=== PATIENT | female | born 1940 | race Caucasian/White ===

== ENCOUNTER → 2016-10-10 | Outpatient (CLI) | payer MEDICARE ==
[2016-02-28 13:12] VITALS: BP 120/70
[~2016-10-10] MED LIST: ACET500T33 PO; AMLO5TAB4 PO; ASPI-482 PO; CHOL100013 PO; CLOP75TA PO; COLC0.6T34 PO; CYAN10005 PO; CYAN100072 PO; DILT180C64 PO; FERR-26 PO; FLUT12HF2 IH; HYDR50TA6 PO; INSU100C4 SQ; LISI-334 PO; MAGN400T22 PO; METF500T PO; METF500T4 PO; METO25TA4 PO; METO50TA2 PO; MONT10TA6 PO; Metoprolol Tartrate PO; NPH,100V SQ; SIMV40TA3 PO; TAMO20TA PO; WARF5TAB7 PO
--- NOTE | 2016-10-10 16:27 | RAD ---
Left lower extreme arterial ultrasound, 10/10/2016: History: Left leg swelling and pain Duplex evaluation of the major arteries in the left lower extremity was performed including grayscale, color flow and spectral Doppler analysis. There are mild scattered atherosclerotic plaques. The common femoral Doppler waveform is biphasic. The profunda femoris, superficial femoral and popliteal arteries are patent demonstrating monophasic Doppler waveforms. No significant focal velocity elevation was seen in these vessels to suggest high-grade focal stenosis. There is gradual degradation of the Doppler waveforms distally. Patent posterior tibial, anterior tibial and dorsalis pedis arteries are evident demonstrating low amplitude dampened Doppler waveforms. The left peroneal artery could not be visualized. IMPRESSION: 1. Mild scattered atherosclerotic plaquing. 2. No high-grade focal femoral-popliteal stenosis is identified. 3. Moderate gradual degradation of the distal Doppler waveforms
== END | disposition home or self-care (01) ==
LOC: US 14:55
PROVIDERS: ATTEND Internal Medicine
DX: I73.9 Peripheral vascular disease, unspecified (principal); M79.605 Pain in left leg; M79.89 Other specified soft tissue disorders
CPT/HCPCS: 93926

== ENCOUNTER 2016-12-25 08:28 | Outpatient (CLI) | payer MEDICARE ==
[~2016-12-25] VITALS: Ht 180.3 cm; Wt 98.0 kg
[2016-12-25] VITALS (13 sets, daily range): BP systolic 98–187; BP diastolic 68–118
[~2016-12-25 08:28] MED LIST changes: +LIDOCAINE 1% / SOD BICARB 8.4% 20 ML VIAL. IJ ONE
[2016-12-25 09:12] LABS: BASO % 0 % (0-3); CALCIUM 8.7 mg/dL (8.5-10.1); CREATININE 1.3 mg/dL (0.6-1.0); EOS % 1 % (0-3); GFR 39.6; HEMATOCRIT 37.2 % (36.0-47.0); HEMOGLOBIN 11.9 g/dL (12.0-15.5); LYMPH # 2.1 x10^3/uL (1.0-4.8); LYMPH % 26 % (24-48); MEAN CORPUSCULAR HEMOGLOBIN 28 pg (25-35); MEAN CORPUSCULAR HGB CONC 32 g/dL (31-37); MEAN CORPUSCULAR VOLUME 87 fL (79-100); MONO % 10 % (0-9); NEUT % 64 % (31-73); PLATELET COUNT 248 x10^3/uL (140-400); POTASSIUM 4.1 mmol/L (3.5-5.1); RED CELL DISTRIBUTION WIDTH 14.6 % (11.5-14.5); WHITE BLOOD COUNT 8.2 x10^3/uL (4.0-11.0)
[2016-12-25] MEDS ORDERED: WARF4TAB7 PO (09:24)
[2016-12-25] MEDS ORDERED: HEPARIN for ARTERIAL LINE 1,500 ML ONE (09:28)
[2016-12-25] MEDS ORDERED: IODIXANOL 320MG/ML 50ML VIAL. ONE (09:28)
[2016-12-25] MEDS ORDERED: IOHEXOL 300 MG/ML 100ML VIAL. ONE (09:28)
[2016-12-25] MEDS ORDERED: IODIXANOL 320 MG/ML 100 ML VIAL. ONE (09:28)
[2016-12-25] MEDS ORDERED: LIDOCAINE 1% / SOD BICARB 8.4% 20 ML VIAL. IJ ONE ×2 (09:28→10:15)
[2016-12-25 09:33] LABS: INR 1.4 (0.8-1.1); PROTHROMBIN TIME PATIENT 16.7 SEC (11.7-14.0)
[2016-12-25] MEDS ORDERED: HEPARIN for IV BOLUS 10,000 UNIT/10 ML VIAL. ONE (09:46)
[2016-12-25] MEDS ORDERED: MIDAZOLAM HCL/PF 5 MG/5 ML VIAL. ONE (09:46)
[2016-12-25] MEDS ORDERED: fentaNYL PF VIAL 250 MCG/5 ML VIAL ONE (09:46)
[2016-12-25] MEDS ORDERED: CONTRAST GIVEN MC PRN (10:15)
[2016-12-25] MEDS ORDERED: MIDAZOLAM HCL/PF 5 MG/5 ML VIAL. IV ONE (10:15)
[2016-12-25] MEDS ORDERED: IODIXANOL 320 MG/ML 100 ML VIAL. IART ONE (10:15)
[2016-12-25] MEDS ORDERED: fentaNYL PF VIAL 250 MCG/5 ML VIAL IV ONE (10:15)
[2016-12-25] MEDS ORDERED: IOHEXOL 300 MG/ML 100ML VIAL. IART ONE (10:45)
--- NOTE | 2016-12-25 11:13 | PDOC ---
MODERATE SEDATION ASSESSMENT RISKS/ALTERNATIVES Risks/Alternatives Risks and alternatives of this type of sedation and procedure discussed with: RISK/ALTERNATIVES: Patient H & P ON CHART H & P H & P on chart and reviewed for co-morbid conditions and appropriate labs. H&P ON CHART: Yes STATUS PREG STATUS ASSESSED: N/A MEDS/ALLERGIES REVIEWED Meds/Allergies Reviewed Medications and Allergies including time and route of recently administered narcotics and sedatives. MEDS/ALLERGIES REVIEWED: Yes ASA RATING ASA RATING: II AIRWAY ASSESSMENT Airway Assessment Airway patency, oral function limitations, presence of caps, crowns, dentures, partials, and ability to extend neck assessed. AIRWAY ASSESSMENT: Yes MALLAMPATI SCORE MALLAMPATI SCORE: II PRE-SEDATION ASSESSMENT PRE-SEDATION ASSESSMENT: Yes ABDOUL VO MD Dec 25, 2016 11:13
--- NOTE | 2016-12-25 11:13 | PDOC ---
Exam Loom Changeover Operator Loom Changeover Operator Aeysha Hand Model Hand Model Ochoa Kohler Pre-Procedure Diagnosis Pre-Procedure Diagnosis 76 YO diabetic hypertensive female with CAD and PAD, with abnormal left lower extremity arterial Doppler study, with nonpalpable left foot/ankle pulses, and with nonhealing left 2nd toe ulceration. Post-Procedure Diagnosis Post-Procedure Diagnosis Same---see Radiology report. No AAA. No significant iliac inflow disease bilaterally. Widely patent left profunda. Severe, diffuse calcific left SFA-above knee pop disease. Below knee pop widely patent. Single vessel peroneal r/o. Procedure Performed Procedure Performed Abdominal aortogram with selective left lower extremity angio---no intervention Type of Anesthesia Type of Anesthesia Local + Mod sedation Estimated Blood Loss EBL: 25 cc Condition of Patient Condition of Patient Stable. No apparent complication. Disposition Disposition Home from [facility] post recovery, if no problems. F/u with Dr Ana Corcoran and Dr Astorga----Rx vascular surgery evaluation to consider left fem-below knee bypass graft. Full report to follow. OK to resume coumadin today. Hold metformin x 48 hrs. ABDOUL VO MD Dec 25, 2016 11:13
--- NOTE | 2016-12-25 11:33 | PDOC1 ---
History and Physical Date of Procedure Date of Admission 12/25/16 Procedure Procedure Abdominal aortogram with left leg angio +/- intervention Indication Indication 76 YO diabetic, hypertensive female with CAD and PAD, with abnormal left lower extremity arterial duplex Doppler, with nonpalpable left foot/ankle pulses, and with nonhealing left 2nd toe ulceration. Past Medical History Past Medical History See Nursing Pre Procedure PMH Past Surgical History Past Surgical History See Nursing Pre Procedure PSH Current Medications Current Medications Current Medications Lidocaine/Sodium Bicarbonate (Buffered Lidocaine 1%) 20 ml STK-MED ONCE IJ ; Start 12/24/16 at 13:06; Stop 12/24/16 at 13:07; Status DC Heparin Sodium/ Sodium Chloride 500 ml @ As Directed STK-MED ONCE .ROUTE ; Start 12/24/16 at 13:06; Stop 12/24/16 at 13:07; Status DC Iodixanol (Visipaque 320) 50 ml STK-MED ONCE .ROUTE ; Start 12/25/16 at 09:28; Stop 12/25/16 at 09:29; Status DC Iohexol (Omnipaque 300 Mg/ml) 100 ml STK-MED ONCE .ROUTE ; Start 12/25/16 at 09: 28; Stop 12/25/16 at 09:29; Status DC Lidocaine/Sodium Bicarbonate (Buffered Lidocaine 1%) 20 ml STK-MED ONCE IJ ; Start 12/25/16 at 09:28; Stop 12/25/16 at 09:29; Status DC Heparin Sodium/ Sodium Chloride 1,500 ml @ As Directed STK-MED ONCE .ROUTE ; Start 12/25/16 at 09:28; Stop 12/25/16 at 09:29; Status DC Iodixanol (Visipaque 320) 100 ml STK-MED ONCE .ROUTE ; Start 12/25/16 at 09:28; Stop 12/25/16 at 09:29; Status DC Heparin Sodium (Porcine) (Heparin Sodium) 10,000 unit STK-MED ONCE .ROUTE ; Start 12/25/16 at 09:46; Stop 12/25/16 at 09:47; Status DC Midazolam HCl (Versed) 5 mg STK-MED ONCE .ROUTE ; Start 12/25/16 at 09:46; Stop 12/25/16 at 09:47; Status DC Fentanyl Citrate (Fentanyl 5ml Vial) 250 mcg STK-MED ONCE .ROUTE ; Start at 09:46; Stop 12/25/16 at 09:47; Status DC Heparin Sodium/ Sodium Chloride 1,000 unit 1X ONCE IART Last administered on 10:46; Start 12/25/16 at 10:15; Stop 12/25/16 at 10:16; Status DC Lidocaine/Sodium Bicarbonate (Buffered Lidocaine 1%) 20 ml 1X ONCE IJ Last administered on 12/25/16 10:45; Start 12/25/16 at 10:15; Stop 12/25/16 at 10:16 ; Status DC Midazolam HCl (Versed) 5 mg 1X ONCE IV Last administered on 12/25/16 10:46; Start 12/25/16 at 10:15; Stop 12/25/16 at 10:16; Status DC Fentanyl Citrate (Fentanyl 5ml Vial) 250 mcg 1X ONCE IV Last administered on 10:47; Start 12/25/16 at 10:15; Stop 12/25/16 at 10:16; Status DC Iodixanol (Visipaque 320) 100 ml 1X ONCE IART Last administered on 12/25/16 10:47; Start 12/25/16 at 10:15; Stop 12/25/16 at 10:16; Status DC Info (Do NOT chart on this entry -- for MONITORING) 1 each PRN DAILY PRN MC SEE COMMENTS; Start 12/25/16 at 10:15; Stop 12/27/16 at 10:14 Iohexol (Omnipaque 300 Mg/ml) 100 ml 1X ONCE IART Last administered on 10:47; Start 12/25/16 at 10:45; Stop 12/25/16 at 10:46; Status DC Active Scripts Active Clopidogrel (Clopidogrel Bisulfate) 75 Mg Tablet 1 Tab PO DAILY Reported Warfarin Sodium 4 Mg Tablet 1 Tab PO DAILY Metoprolol Tartrate 25 Mg Tablet 25 Mg PO BID Vitamin B-12 (Cyanocobalamin (Vitamin B-12)) 1,000 Mcg Tablet 1 Tab PO DAILY Singulair Tablet (Montelukast Sodium) 10 Mg Tablet 1 Tab PO DAILY Mag-Oxide (Magnesium Oxide) 400 Mg Tablet 1 Tab PO BID Cartia Xt (Diltiazem Hcl) 180 Mg Cap.er.24h 180 Mg PO DAILY Metformin Hcl 500 Mg Tablet 1 Tab PO BID Ferrous Sulfate 325 Mg Tablet 325 Mg PO BID Tamoxifen Citrate 20 Mg Tablet 1 Tab PO BID Hydrochlorothiazide Tablet (Hydrochlorothiazide) 50 Mg Tablet 0.5 Tab PO DAILY Simvastatin 40 Mg Tablet 1 Tab PO QHS Lisinopril 20 Mg Tablet 1 Tab PO DAILY Humulin N (Nph, Human Insulin Isophane) 100 Unit/1 Ml Vial 5 Unit SQ PRN Humulin N (Nph, Human Insulin Isophane) 100 Unit/1 Ml Vial 47 Unit SQ DAILY08 Vitamin D (Cholecalciferol (Vitamin D3)) 1,000 Unit Capsule 1 Cap PO DAILY Allergies Allergies: Coded Allergies: colchicine (Verified Allergy, Intermediate, Rash, 02/28/16) itching and rash formed Physical Exam Vital Signs Vital Signs Date Time Temp Pulse Resp B/P (MAP) Pulse Ox O2 Delivery O2 Flow Rate FiO2 12/25/16 10:48 120 16 98 Nasal Cannula 2.0 12/25/16 09:42 98.3 186/107 (133) 98.3 Lungs: Clear to auscultation Heart: Regular rate Psych/Mental Status: Mental status NL Vascular 2+ [employer] pulses bilaterally Nonpalpable foot/ankle pulses bilaterally. Bandage covering left 2nd toe diabetic/ischemic ulceration Diagnostic Data/Imaging Images PMC left lower extremity arterial duplex Doppler from 10/10/16 reviewed. Assessment Assessment 76 YO diabetic, hypertensive female with CAD, PAD, abnormal non-invasive study, nonpalpable ankle/foot pulses, and nonhealing left 2nd toe diabetic/ischemic ulceration. Problems: Plan Plan Diagnostic abdominal aortogram with selective left leg angio +/- intervention. ABDOUL VO MD Dec 25, 2016 11:33
[2016-12-25] MEDS ORDERED: IV NORMAL SALINE 1000ML BAG 1,000 ML IV ONE (12:45)
--- NOTE | 2016-12-26 07:21 | RAD ---
Abdominal aortogram with selective left lower extremity arteriogram Indication: 76-year-old female with hypertension, diabetes, coronary artery disease, PAD, nonpalpable pedal pulses, abnormal left lower extremity arterial duplex Doppler ultrasound, and a nonhealing left second toe ischemic/diabetic ulceration. Diagnostic arteriogram, with possible intervention, has been requested. Fluoroscopy time: 17.4 minutes Kerma-area Product: 177 Gycm2 Contrast material: 32 cc Omnipaque 300. 56 cc Visipaque 320. Anesthesia: 48 minutes moderate sedation was provided utilizing a total of 1.5 mg Versed and 75 mcg fentanyl, IV. The patient was appropriately monitored by a qualified independent observer throughout the time of moderate sedation. Consent: The procedure was explained in its entirety to the patient and/or the patient's designated environmental marketing representative by a member of the treatment team. This included a discussion of risks and benefits and commonly accepted alternatives to the procedure, as well as expected consequences of no treatment at all. Discussion of risks included, but was not limited to, those that are most frequent and those that are rare, but possibly severe or life-threatening, as well as the possibility of unforeseen complications. Sterility: All elements of maximal sterile barrier technique, hand hygiene, skin preparation, and, if ultrasound was used, sterile ultrasound technique were followed. Procedure: Informed consent was obtained from the patient. She was placed supine on the angiography table. Preliminary ultrasound examination of right groin revealed wide patency of right common femoral artery, which was documented with a single hard copy ultrasound image. Right groin was then prepped and draped in the usual sterile fashion, utilizing all elements of maximal sterile barrier technique, as described above. Moderate sedation was provided with IV Versed and fentanyl. Using aseptic technique, local anesthesia, direct sterile ultrasound guidance, and the micropuncture system, a 5 [place]uvian right common femoral artery sheath was successfully introduced. Abdominal aortogram: A 5 [place]uvian Omni Flush catheter was advanced through the right groin sheath into suprarenal abdominal aorta. Omnipaque 300 was injected and abdominal aortogram DSA images were obtained. Findings: Infrarenal abdominal aorta shows moderate as described plaquing, without significant stricture and without aneurysmal dilatation. Renal arteries are suboptimally visualized, however, no definite flow-limiting stenosis is seen. SMA and HOMERO are opacified. Aortic bifurcation is widely patent. Oblique pelvis injection: The Omni Flush catheter was withdrawn into terminal abdominal aorta, just above bifurcation. Omnipaque 300 was again injected and DSA images were obtained over pelvis in the LUNA projection. Findings: Both common iliac arteries show mild atherosclerotic calcific plaquing, without significant stenosis. External iliac arteries are widely patent, bilaterally. Left hypogastric artery is widely patent. Areas of moderate stenosis lies within proximal right hypogastric artery. Selective left lower extremity arteriogram: The Omni Flush catheter was exchanged for a 4 Peruvian angled glide catheter, which was advanced across aortic bifurcation and was initially positioned within contralateral left common femoral artery. Dilute Visipaque was injected and DSA images were obtained over left groin in the [place] projection. The angled glide catheter was then advanced into proximal left superficial femoral artery. Dilute Visipaque was injected and DSA images were obtained from proximal thigh through distal thigh. Multiple unsuccessful attempts were then made to cross diffusely and severely diseased and calcific left SFA and proximal left popliteal artery segment into mid left popliteal artery, utilizing quick cross and Nelson Cross catheter is and a variety of guidewires. The Nelson Cross catheter was then withdrawn into left common femoral artery. Dilute Visipaque was hand injected and DSA images were obtained from left knee through foot. Findings: Left common femoral artery, bifurcation, and very large caliber profunda are widely patent. Left superficial femoral artery is diffusely calcific and severely diseased, commencing in its mid segment. Left popliteal artery, above level of patella, shows similar severe calcific disease. Left popliteal artery at/below patella is widely patent. Anterior tibial artery is occluded just distal to its origin. Left tibioperoneal trunk is widely patent. Posterior tibial artery is occluded at/near its origin. Peroneal artery is patent from origin through distal calf and provides collateral opacification of distal anterior tibial artery through dorsalis pedis artery at mid foot, with poor visualization of plantar arch. There was markedly delayed segmental opacification of plantar vessels overlying calcaneus. Patient tolerated the procedure well without apparent complication. Hemostasis was achieved at the right groin puncture site utilizing the Mynx closure system. Impression: 1. No abdominal aortic aneurysm or significant common iliac or external iliac artery stenosis, bilaterally. 2. Left common femoral artery and profunda are widely patent. 3. Severe, diffuse, markedly calcific disease (which could not be crossed with guidewire or catheter) extends from mid left superficial femoral artery through popliteal artery above level of patella. Left popliteal artery at/below patella is widely patent. 4. Single-vessel distal runoff is provided via peroneal artery, which is patent from origin through distal calf, and provides collateral opacification of distal anterior tibial artery through dorsalis pedis artery at mid foot, with poor visualization of plantar arch.
== END 2016-12-25 14:16 | disposition home or self-care (01) ==
LOC: INTRAD 08:28
PROVIDERS: ATTEND Internal Medicine
DX: I70.292 Other atherosclerosis of native arteries of extremities, left leg (principal); I25.10 Atherosclerotic heart disease of native coronary artery without angina pectoris; E78.00 Pure hypercholesterolemia, unspecified; I48.91 Unspecified atrial fibrillation; I10 Essential (primary) hypertension; M19.90 Unspecified osteoarthritis, unspecified site; F41.9 Anxiety disorder, unspecified; F32.9 Major depressive disorder, single episode, unspecified; Z85.3 Personal history of malignant neoplasm of breast; Z87.39 Personal history of other diseases of the musculoskeletal system and connective tissue; Z96.651 Presence of right artificial knee joint; Z88.8 Allergy status to other drugs, medicaments and biological substances
CPT/HCPCS: 36246; 36415; 75625; 75710; 75774; 76937; 80048; 85027; 85610; C1713; C1760; C1769; C1892; G0269; J2250; J3010; J7030; Q9967; 99152; 99153; C1887; J1644

== ENCOUNTER → 2017-04-29 | Outpatient (CLI) | payer MEDICARE ==
[2016-12-25 13:35] VITALS: BP 136/94
[~2017-04-29] MED LIST changes: -LIDOCAINE 1% / SOD BICARB 8.4% 20 ML VIAL. IJ ONE; +WARF4TAB7 PO
--- NOTE | 2017-04-29 13:45 | RAD ---
DATE: April 29, 2017 EXAM: DIGITAL DIAGNOSTIC BILATERAL HISTORY: Routine screening. COMPARISON: Studies back to March 03, 2014. TECHNIQUE: 2D digital CC and MLO views of each breast were obtained. This study was interpreted with the benefit of Computerized Aided Detection (CAD). FINDINGS: The breast parenchyma demonstrates scattered fibroglandular densities, category B. There are posttherapeutic changes in the right breast with previous lumpectomy. There is no worrisome mass or area of architectural distortion. Small retroareolar nodule is stable and benign-appearing. Numerous benign-appearing calcifications are again scattered throughout both breasts. IMPRESSION: Stable mammogram with benign findings. BI-RADS CATEGORY: 2 BENIGN FINDING RECOMMENDED FOLLOW-UP: 12M 12 MONTH FOLLOW-UP PQRS compliance statement: Patient information was entered into a reminder system with a target due date for the next mammogram. Mammography is a sensitive method for finding small breast cancers, but it does not detect them all and is not a substitute for careful clinical examination. A negative mammogram does not negate a clinically suspicious finding and should not result in delay in biopsying a clinically suspicious abnormality. "Our facility is accredited by the [employer] Mammography [employer]."
== END | disposition home or self-care (01) ==
LOC: MAMMO 13:09
PROVIDERS: ATTEND Internal Medicine Hematology & Oncology
DX: D05.91 Unspecified type of carcinoma in situ of right breast (principal); Z85.3 Personal history of malignant neoplasm of breast
CPT/HCPCS: G0204; 77066

== ENCOUNTER → 2017-08-29 | Outpatient (CLI) | payer MEDICARE | END | disposition home or self-care (01) | LOC: KCIC DEXA 07:57 | DX: E11.9 Type 2 diabetes mellitus without complications (principal); M85.88 Other specified disorders of bone density and structure, other site; Z78.0 Asymptomatic menopausal state | CPT/HCPCS: 77080 ==

== ENCOUNTER → 2018-04-30 | Outpatient (CLI) | payer MEDICARE ==
[2016-12-25 13:35] VITALS: BP 136/94
[~2018-04-30] MED LIST changes: -FERR-26 PO; +FERR325T14 PO; +METF500T16 PO; -METF500T4 PO; -METO50TA2 PO; +METO50TA6 PO; +WARF-31 PO; +WARF4TAB64 PO; -WARF4TAB7 PO; -WARF5TAB7 PO
--- NOTE | 2018-04-30 11:31 | RAD ---
DATE: April 30, 2018 EXAM: MAMMO SAURABH JIM THOMPSON, BREAST RIGHT SONOGRAM HISTORY: History of right breast cancer treated with lumpectomy and radiation therapy. COMPARISON: 2014 and 2015 and 2016 This study was interpreted with the benefit of Computerized Aided Detection (CAD). 2-D digital mammographic views of both breasts were performed in the CC and MLO projections. 3-D digital tomosynthesis images of both breasts were performed in the CC and MLO projections and reviewed on a computer workstation. FINDINGS: Breast Density: SCATTERED The breast parenchyma shows scattered fibroglandular densities. Breast parenchyma level B.. Postoperative changes of the right breast are again seen with a nodular density posteriorly and medially. This is stable. However, there is a nodule seen more anteriorly 2.5 cm from the nipple. There is a nodule located in the same location more lateral in position on the 2014 mammogram but was not seen on the 2015 and 2017 mammograms. It is located at about the 6 clock position. The left breast is stable. RIGHT BREAST SONOGRAPHY: High-resolution sonography of the 7:00 position of the right breast demonstrates a hypoechoic nodule 2.5 cm from the nipple. It measures 7 mm in greatest dimension and there is no sound through transmission. The borders are smooth with a thin echogenic capsule. Therefore, it is possible this could represent a complicated cyst but a solid hypoechoic nodule is possible as well given the patient's history. Therefore, ultrasound-guided biopsy of this nodule is recommended. At the:30 position posteriorly 7.5 cm from the nipple, a hypoechoic area is seen which corresponds to the surgical site which has been stable mammographically. It is consistent with a postsurgical scar. IMPRESSION: Hypoechoic indeterminate nodule at the 7:00 position of the right breast 2.5 cm from the nipple. Recommend ultrasound-guided core biopsy of this nodule. Note-I discussed the findings and recommendation for biopsy with the patient after completion of the study on April 30, 2018. I told the patient to call her physician's office for further instructions. In addition, the parking lot manager, Chyna, called the office of Dr. Benito with the results and recommendation for biopsy after completion of this study on April 30, 2018. BI-RADS CATEGORY: 4 SUSPICIOUS ABNORMALITY-BIOPSY SHOULD BE CONSIDERED RECOMMENDED FOLLOW-UP: BIO BIOPSY RECOMMENDED PQRS compliance statement: Patient information was entered into a reminder system with a target due date now for the imaging guided procedure. Mammography is a sensitive method for finding small breast cancers, but it does not detect them all and is not a substitute for careful clinical examination. A negative mammogram does not negate a clinically suspicious finding and should not result in delay in biopsying a clinically suspicious abnormality. "Our facility is accredited by the [employer] Mammography Program." The patient's breast density may affect the ability of mammography to detect breast cancer. There are 4 categories of breast density, A, B, C and D. Breast density A means that most of the breast tissue is replaced with adipose tissue and therefore is not dense. Breast density B means that the breast tissue is mildly dense and scattered. Breast density C means that the breast tissue is heterogeneously dense. Breast density D means that the breast tissue is very dense. Breast densities especially C and D may decrease the sensitivity of mammography to detect breast cancer. Therefore, the patient may benefit from 3-D breast mammography (3D breast tomography) as a part of their screening mammogram. Insurance may or may not pay for this additional imaging. The patient's breast density based on today's mammogram is category B.
== END | disposition home or self-care (01) ==
LOC: MAMMO 09:20
PROVIDERS: ATTEND Internal Medicine Hematology & Oncology
DX: Z08 Encounter for follow-up examination after completed treatment for malignant neoplasm (principal); N63.14 Unspecified lump in the right breast, lower inner quadrant; Z85.3 Personal history of malignant neoplasm of breast
CPT/HCPCS: 76641; 77066; G0279; 77062

== ENCOUNTER → 2018-05-27 | Outpatient (CLI) | payer MEDICARE ==
[2016-12-25 13:35] VITALS: BP 136/94
[~2018-05-27] MED LIST changes: +LIDOCAINE 1% Multi-Dose 50 ML VIAL. INJ ONE
--- NOTE | 2018-05-27 15:45 | RAD ---
DATE: 05/27/2018 EXAM: DIGITAL DIAGNOSTIC RT HISTORY: The patient has just undergone right breast ultrasound-guided biopsy with clip marker placement. COMPARISON: 04/30/2018 screening mammographic exam This study was interpreted with the benefit of Computerized Aided Detection (CAD). Breast Density: SCATTERED The breast parenchyma shows scattered fibroglandular densities. Breast parenchyma level B. FINDINGS: Biopsy clip marker is present at the right lower MLO view overlying the nodule. It is not as well delineated on the CC projection probably due to overlapping calcifications involving arteries. No hematoma. IMPRESSION: Successful placement of the biopsy clip marker is suspected based on the MLO view. BI-RADS CATEGORY: 4 SUSPICIOUS ABNORMALITY- BIOPSY SHOULD BE CONSIDERED-biopsy has been performed RECOMMENDED FOLLOW-UP: BIO BIOPSY RECOMMENDED-and has been performed. PQRS compliance statement: Patient information was entered into a reminder system with a target due date in 1 year for the next mammogram. Mammography is a sensitive method for finding small breast cancers, but it does not detect them all and is not a substitute for careful clinical examination. A negative mammogram does not negate a clinically suspicious finding and should not result in delay in biopsying a clinically suspicious abnormality. "Our facility is accredited by the [employer] Mammography Program."
--- NOTE | 2018-05-27 16:44 | RAD ---
Examination: GUID NDL PLACE/ASPI/BX History: rt breast mass Comparison/Correlation: 04/30/2018 Limited right breast ultrasound exam Findings: Risks and benefits of right breast ultrasound-guided core biopsy with clip marker placement were discussed with the patient. Informed consent was obtained. Preliminary ultrasound imaging demonstrated the right breast mass of interest. Medial approach utilized. Cleansing with Betadine was performed about the periareolar region and lower, inner right breast. Sterile drapes were placed. Sterile probe cover was utilized. 5 cc of buffered 1 percent lidocaine was utilized for local anesthesia and this was administered ultrasound guidance medial to the mass. Small incision was made with a scalpel. An introducer was placed into the right breast near the scalpel incision site. A 14-gauge core biopsy needle was introduced into the right breast via the introducer for a total of 7 passes into the right breast mass. Most of the samples obtained were very friable. At least one sample reached the bottom of the specimen jar. At the conclusion of the exam, biopsy clip marker was placed via the introducer partially into the mass. Virtually no bleeding occurred during the procedure or shortly afterwards. Impression: Successful core biopsy of the lower central right breast mass with marker placement. Patient tolerated the procedure well without immediate complications. Electronically signed by: Donnie Gates MD (05/27/2018 4:40 PM) [facility]
--- NOTE | 2018-05-30 09:10 | PATHOLOGY ---
[facility] Accession Number: [id number] . 01 Material submitted: . RIGHT BREAST MASS . 01 Clinical history: . History right breast cancer with lumpectomy and radiation 2012 . 02 Diagnosis: Breast tissue, right breast mass needle biopsies: - Fibroadenoma. LBQ/05/29/2018 . 02 Comment: There is no evidence of malignancy. (JPM/db; 05/29/2018) . 02 Electronically signed: . Raul Perez MD, Pathologist NPI- [id number] . 01 Gross description: . The specimen is received in formalin, labeled "Dulce Loyd, right breast mass" and consists of multiple needle cores of yellow-owen tissue measuring between 0.3 cm and 1.2 cm and ranging from 0.1-0.2 cm in diameter. They are entirely submitted in A1-A2. The specimen was obtained at 3 PM on 05/27/18 and placed in formalin at 3:07 PM. The cold ischemic time is 7 minutes and the total formalin fixation time is greater than 6 hours but less than 72 hours. (SDY; 05/28/2018) SYU/SYU . 02 Pathologist provided ICD-10: D24.1 . 02 CPT . 506816 Specimen Comment: A courtesy copy of this report has been sent to Specimen Comment: [phone], , . Specimen Comment: Report sent to , DR WALDRON / DR AYON Performed at: 01 [facility] [address], [place], [place] [id number] MD Jaden Márquez MD Phone: [phone] Performed at: 02 [facility] [address] [place], [place] [id number] MD Raul Perez MD Phone: [phone]
== END | disposition home or self-care (01) ==
LOC: US 13:36
PROVIDERS: ATTEND Surgery
DX: D24.1 Benign neoplasm of right breast (principal); E11.9 Type 2 diabetes mellitus without complications; F32.9 Major depressive disorder, single episode, unspecified; F41.9 Anxiety disorder, unspecified; I25.10 Atherosclerotic heart disease of native coronary artery without angina pectoris; E78.00 Pure hypercholesterolemia, unspecified; I48.91 Unspecified atrial fibrillation; M19.90 Unspecified osteoarthritis, unspecified site; I10 Essential (primary) hypertension; Z79.899 Other long term (current) drug therapy; Z85.3 Personal history of malignant neoplasm of breast; Z98.890 Other specified postprocedural states; Z95.5 Presence of coronary angioplasty implant and graft; Z96.651 Presence of right artificial knee joint
CPT/HCPCS: 19083; 77065; 88305; C1713; 76942

== ENCOUNTER → 2018-06-20 | Outpatient (CLI) | payer MEDICARE ==
[2016-12-25 13:35] VITALS: BP 136/94
[~2018-06-20] MED LIST changes: -LIDOCAINE 1% Multi-Dose 50 ML VIAL. INJ ONE
--- NOTE | 2018-06-20 18:19 | KCIC ---
Three-view right shoulder radiographs 06/20/2018 CLINICAL HISTORY: Right shoulder pain for one month. AP internal and external rotation and transscapular digital radiographs of the right shoulder were obtained. There is diffuse osteopenia the visualized bony structures. Moderate to severe degenerative changes are seen involving the right glenohumeral joint and right AC joint. No fracture or dislocation is seen. IMPRESSION: Degenerative changes are seen involving the right shoulder as outlined above. No acute osseous abnormality is seen. Electronically signed by: Kurtis Gayle MD (06/20/2018 6:16 PM) [facility]
== END | disposition home or self-care (01) ==
LOC: KCIC 11:35
PROVIDERS: ATTEND Internal Medicine
DX: M19.011 Primary osteoarthritis, right shoulder (principal); M85.811 Other specified disorders of bone density and structure, right shoulder
CPT/HCPCS: 73030

== ENCOUNTER → 2019-01-06 | Outpatient (CLI) | payer MEDICARE ==
[2016-12-25 13:35] VITALS: BP 136/94
[~2019-01-06] MED LIST changes: +MONT10TA49 PO; -MONT10TA6 PO
--- NOTE | 2019-01-06 16:57 | KCIC ---
THREE-VIEW THORACIC SPINE SERIES Clinical indications: Status post fall one week ago. Thoracic pain. FINDINGS: There is a moderate compression fracture of T6. No lytic process or discitis is evident. IMPRESSION: Moderate compression fracture of T6. 3 VIEW STUDY OF THE RIGHT KNEE Clinical indications: Right knee pain status post fall one week ago. FINDINGS: Total right knee arthroplasty is evident which is well aligned. No acute fracture or lytic process is seen. Calcified atheromatous arterial disease is evident. IMPRESSION: No acute fracture. Electronically signed by: Darci Quezada MD (01/06/2019 4:54 PM) [place] [id number]
== END | disposition home or self-care (01) ==
LOC: KCIC 09:44
PROVIDERS: ATTEND Internal Medicine
DX: M84.48XA Pathological fracture, other site, initial encounter for fracture (principal); M25.561 Pain in right knee; I70.90 Unspecified atherosclerosis; Z96.651 Presence of right artificial knee joint
CPT/HCPCS: 72072; 73562

== ENCOUNTER → 2019-03-26 | Outpatient (CLI) | payer MEDICARE ==
[2016-12-25 13:35] VITALS: BP 136/94
[~2019-03-26] MED LIST changes: +CYAN-25 PO; -CYAN10005 PO
--- NOTE | 2019-03-26 15:23 | CARD ---
MR#: [id number] Date of Study: 03/26/2019 Ordering Physician: RODERICK NGUYỄN, Referring Physician: RODERICK NGUYỄN, Tech: Lubna Sims [facility] APPROVED REPORT EXAM: Two-dimensional and M-mode echocardiogram with Doppler and color Doppler. Other Information Quality : GoodHR: 77bpm Rhythm : Atrial Fibrillation INDICATION Atrial Fibrillation 2D DIMENSIONS RVDd3.3 (2.9-3.5cm)Left Atrium(2D)4.4 (1.6-4.0cm) IVSd1.3 (0.7-1.1cm)Aortic Root(2D)2.8 (2.0-3.7cm) LVDd4.4 (3.9-5.9cm)LVOT Diameter1.9 (1.8-2.4cm) PWd1.2 (0.7-1.1cm)LVDs2.2 (2.5-4.0cm) FS (%) 49.2 %SV72.0 ml M-Mode DIMENSIONS Left Atrium(MM)5.08 (2.5-4.0cm)Aortic Root3.04 (2.2-3.7cm) Aortic Valve AoV Peak Tyshawn.330.9cm/sAoV VTI67.7cm AO Peak GR.43.8mmHgLVOT Peak Tyshawn.152.1cm/s AO Mean GR.24mmHgAVA (VMAX)1.35cm2 FLIP (VTI)1.60cm2 Mitral Valve MV E Bnzhofmj236.9cm/sMV E Peak Gr.34mmHg MV DECEL [id number] A Poawsytv12.4cm/s MV E Mean Gr.10mmHgE/A Ratio4.8 Pulmonary Valve PV Peak Dznovdad457.9cm/s Tricuspid Valve TR P. Psldeweh045bg/sRAP [id number] TR Peak Gr.12grCeSKGR64feZs LEFT VENTRICLE The left ventricle is normal size. There is mild concentric left ventricular hypertrophy. The left ve ntricular systolic function is normal. The ejection fraction is 60-65%. There is normal LV segmental wall motion. Transmitral Doppler flow pattern is Grade III-reversible restrictive diastolic dysfuncti on. No left ventricle thrombus noted on this study. RIGHT VENTRICLE The right ventricle is normal size. There is normal right ventricular wall thickness. The right ventr icular systolic function is normal. ATRIA The left atrium is moderately dilated. The right atrium is mildly dilated. The interatrial septum is intact with no evidence for an atrial septal defect or patent foramen ovale as noted on 2-D or Dopple r imaging. AORTIC VALVE The aortic valve is trileaflet. The aortic valve is severely calcified. Doppler and Color Flow reveal ed trace aortic regurgitation. There is moderate valvular aortic stenosis. Calculated aortic valve ar ea is 1.5 cm2 with maximum pressure gradient of 44 mmHg and mean pressure gradient of 24 mmHg. There is no aortic valvular vegetation. MITRAL VALVE The mitral valve is calcified and displays decreased opening. There is no evidence of mitral valve pr olapse. There is moderate to severe mitral valve stenosis. Calculated mitral valve maximum pressure g radient of 41 mmHg and mean pressure gradient of 13 mmHg. Doppler and Color-flow revealed mild to mod erate mitral regurgitation. TRICUSPID VALVE The tricuspid valve is normal in structure and function. Doppler and Color Flow revealed mild to mode rate tricuspid regurgitation. The PA pressure was estimated at 60 mmHg. There is no tricuspid valve p rolapse or vegetation. There is no tricuspid valve stenosis. PULMONIC VALVE The pulmonary valve is normal in structure and function. Doppler and Color Flow revealed no pulmonic valvular regurgitation. There is no pulmonic valvular stenosis. GREAT VESSELS The aortic root is normal in size. The ascending aorta is normal in size. The IVC is normal in size a nd collapses >50% with inspiration. PERICARDIAL EFFUSION There is no evidence of significant pericardial effusion. Critical Notification Critical Value: No <Conclusion> The left ventricle is normal size. The left ventricular systolic function is normal. The ejection fraction is 60-65%. There is mild concentric left ventricular hypertrophy. There is moderate valvular aortic stenosis. Calculated aortic valve area is 1.5 cm2 with maximum pressure gradient of 44 mmHg and mean pressure g radient of 24 mmHg. Doppler and Color Flow revealed trace aortic regurgitation. There is moderate to severe mitral valve stenosis. Calculated mitral valve maximum pressure gradient of 41 mmHg and mean pressure gradient of 13 mmHg. Doppler and Color-flow revealed mild to moderate mitral regurgitation. Doppler and Color Flow revealed mild to moderate tricuspid regurgitation. The PA pressure was estimated at 60 mmHg. Signed by : Rodger Rivera MD Electronically Approved : 03/26/2019 15:23:25
== END | disposition home or self-care (01) ==
LOC: ECHO 13:45
PROVIDERS: ATTEND Internal Medicine Cardiovascular Disease
DX: I08.3 Combined rheumatic disorders of mitral, aortic and tricuspid valves (principal); I11.9 Hypertensive heart disease without heart failure; I48.2 Chronic atrial fibrillation
CPT/HCPCS: 93306

== ENCOUNTER → 2019-04-16 | Outpatient (CLI) | payer MEDICARE ==
[~2019-04-16] MED LIST changes: +BENZOCAINE ONE 20% MUCOSAL SPRAY.; +BENZOCAINE ONE 20% MUCOSAL SPRAY. MM; +GABA600T7 PO; +IV RINGERS,LACTATED 1000ML 1,000 ML IV SCH; +LIDOCAINE 1% PF 5 ML VIAL. INJ ONE; +LIDOCAINE 1% PF 5 ML VIAL. ONE; +LIDOCAINE 2% TOPICAL JELLY 5GM TUBE. TP ONE; +LIDOCAINE 2% VISCOUS 15 ML SOLUTION. ONE; +LIDOCAINE 2% VISCOUS 15 ML SOLUTION. SWSW ONE; +PROPOFOL 20 ML IV ONE; +SIMV40TA18 PO; -SIMV40TA3 PO
[2019-04-16 13:57] VITALS: BP 128/55
--- NOTE | 2019-04-16 14:44 | CARD ---
MR#: [id number] Date of Study: 04/16/2019 Ordering Physician: RODERICK LI, Referring Physician: RODERICK LI, Tech: Eugenia Leonard APPROVED REPORT EXAM: Transesophageal echocardiogram with color flow Doppler. INDICATION Atrial Fibrillation Aortic Valve FLIP (VMAX)2.61cm2 Tricuspid Valve TR P. Umctsebn871cm/s Reason For Test : Rule out Intracardiac Thrombus. PROCEDURE After obtaining informed consent, patient underwent transesophageal echo in the PACU. Type of Sedation : General Anesthesia Sedation was administered by Leonardo Calix CRNA. Sedation was achieved with Propofol 170mg intravenously. Transesophageal probe was inserted and advanced into esophagus by Wallace Li MD. The NIKOLAS was performed without complications. Throughout the procedure, the blood pressure, pulse oximetry, cardiac rhythm, and rate were monitored . The patient tolerated the procedure without adverse effects. Recovery from general anesthesia was une ventful and vital signs were stable. LEFT VENTRICLE The left ventricle is normal size. There is mild concentric left ventricular hypertrophy. The left ve ntricular systolic function is normal and the ejection fraction is within normal range. The Ejection Fraction is 55%. There is normal LV segmental wall motion. Tissue Doppler imaging reveals moderate le ft ventricular diastolic dysfunction. RIGHT VENTRICLE The right ventricle is normal size. There is normal right ventricular wall thickness. The right ventr icular systolic function is normal. ATRIA The left atrium is moderately dilated. The right atrium is mildly dilated. The interatrial septum is intact with no evidence for an atrial septal defect or patent foramen ovale as noted on 2-D or Dopple r imaging. There is no thrombus noted in the left atrial appendage. AORTIC VALVE The aortic valve is severely thickened. The right and left coronary cusps are non-mobile. Doppler and Color Flow revealed trace aortic regurgitation. Probable moderate aortic stenosis. Outflow gradients on NIKOLAS not reliable due to inconsistent doppler angle. Correlate with TTE MITRAL VALVE The mitral valve has severe annular calcification. The valve leaflets are restricted in motion. There is no evidence of mitral valve prolapse. Unable to trace mitral valve. There is evidence of moderate mitral valve stenosis. MG of 4 mm Hg, Peak gradient of 10 mm Hg. Doppler and Color-flow revealed mil d mitral regurgitation. TRICUSPID VALVE The tricuspid valve is normal in structure and function. Doppler and Color Flow revealed mild tricusp id regurgitation. There is no tricuspid valve stenosis. PULMONIC VALVE The pulmonary valve is normal in structure and function. Doppler and Color Flow revealed no pulmonic valvular regurgitation. There is no pulmonic valvular stenosis. GREAT VESSELS The aortic root is normal in size. The IVC is normal in size and collapses >50% with inspiration. PERICARDIAL EFFUSION There is no pleural effusion. Critical Notification Critical Value: No <Conclusion> The left ventricular systolic function is normal and the ejection fraction is within normal range. Th e Ejection Fraction is 55%. There is normal LV segmental wall motion. There is no thrombus noted in the left atrial appendage. The aortic valve is severely thickened. The right and left coronary cusps are non-mobile. The mitral valve has severe annular calcification. The valve leaflets are restricted in motion. There is evidence of moderate mitral valve stenosis. MG of 4 mm Hg, Peak gradient of 10 mm Hg. Probable moderate aortic stenosis. Outflow gradients on NIKOLAS not reliable due to inconsistent doppler angle. Correlate with TTE Signed by : Roderick Li, Electronically Approved : 04/16/2019 14:43:55
--- NOTE | 2019-04-16 17:39 | PDOC ---
Provider Note Provider Note CARDIOLOGY H& P FOR PLANNED NIKOLAS REASON FOR OUTPT PROCEDURE; VALVULAR HEART DISEASE. HPI: Dulce is a pleasant 78-year-old woman coming into the hospital today for a planned outpatient transesophageal echocardiogram. She was seen approximately one month ago and has had described worsening exertional dyspnea. She has a remote history of coronary disease and permanent atrial fibrillation. Past medical history 1. Coronary artery disease status post PCI to the LAD and RCA in 2016 Peripheral vascular disease status post PVI Type 2 diabetes Obesity Dyslipidemia Social history no alcohol, tobacco or illicit drug use Family history is noncontributory Allergies to colchicine Current cardiac medications include metoprolol 25 mg twice a day, simvastatin 40 g daily, diltiazem XT 180 mg daily, lisinopril 20 mg daily and warfarin therapy. She's also on Plavix daily Review systems negative unless otherwise mentioned above in history of present illness The patient appeared well nourished and normally developed. Head exam is unremarkable. No scleral icterus or corneal arcus noted. Neck is without jugular venous distension, thyromegaly, or carotid bruits. Carotid upstrokes are brisk bilaterally. Lungs are clear to auscultation and percussion. Cardiac exam reveals the PMI to be normally sized and situated. Rhythm is irregular. First and second heart sounds normal. No murmurs, rubs or gallops. Abdominal exam reveals normal bowel sounds, no masses, no organomegaly and no aortic enlargement. Extremities are nonedematous and both femoral and pedal pulses are normal. Msk: No traumua Neuro: No focal deficits Diagnostic studies: Labs are grossly unremarkable today She had a surface echocardiogram approximately one to 2 weeks ago which were he suggested severe mitral stenosis and possible moderate aortic stenosis. After discussion the patient ultimately agreed to a NIKOLAS Impression: 1. Dyspnea on exertion, multifactorial in etiology Plan 1. We will plan for a transesophageal echocardiogram and in 2 weeks consider a cardiac catheterization for further delineation of her valve disease and c oronary disease as needed. Possible referral to [facility] for further tx. RODERICK NGUYỄN MD Apr 16, 2019 17:39
== END | disposition home or self-care (01) ==
LOC: SURG 12:10
PROVIDERS: ATTEND Internal Medicine Cardiovascular Disease
DX: I48.91 Unspecified atrial fibrillation (principal); I08.3 Combined rheumatic disorders of mitral, aortic and tricuspid valves; E78.00 Pure hypercholesterolemia, unspecified; I25.10 Atherosclerotic heart disease of native coronary artery without angina pectoris; I11.9 Hypertensive heart disease without heart failure; M10.9 Gout, unspecified; E11.9 Type 2 diabetes mellitus without complications; F41.9 Anxiety disorder, unspecified; F32.9 Major depressive disorder, single episode, unspecified; Z79.899 Other long term (current) drug therapy; Z98.890 Other specified postprocedural states; Z95.5 Presence of coronary angioplasty implant and graft; Z79.4 Long term (current) use of insulin
CPT/HCPCS: 82962; 93312; 93320; 93325; J2704

== ENCOUNTER 2019-05-07 06:56 | Outpatient (CLI) | payer MEDICARE ==
[2019-05-07] VITALS (19 sets, daily range): BP systolic 96–182; BP diastolic 50–86
[~2019-05-07] VITALS: Ht 180.3 cm; Wt 97.1 kg
[~2019-05-07 06:56] MED LIST changes: -BENZOCAINE ONE 20% MUCOSAL SPRAY.; -BENZOCAINE ONE 20% MUCOSAL SPRAY. MM; -IV RINGERS,LACTATED 1000ML 1,000 ML IV SCH; -LIDOCAINE 1% PF 5 ML VIAL. INJ ONE; -LIDOCAINE 1% PF 5 ML VIAL. ONE; -LIDOCAINE 2% TOPICAL JELLY 5GM TUBE. TP ONE; -LIDOCAINE 2% VISCOUS 15 ML SOLUTION. ONE; -LIDOCAINE 2% VISCOUS 15 ML SOLUTION. SWSW ONE; -PROPOFOL 20 ML IV ONE; -SIMV40TA18 PO; +SIMV40TA3 PO
[2019-05-07 07:26] LABS: HEMATOCRIT 37.3 % (36.0-47.0); HEMOGLOBIN 12.1 g/dL (12.0-15.5); RED BLOOD COUNT 4.47 x10^6/uL (3.50-5.40); RED CELL DISTRIBUTION WIDTH 16.2 % (11.5-14.5); WHITE BLOOD COUNT 8.9 x10^3/uL (4.0-11.0)
[2019-05-07] MEDS ORDERED: HEPARIN for ARTERIAL LINE 1,500 ML ONE (07:35)
[2019-05-07] MEDS ORDERED: IODIXANOL 320 MG/ML 100 ML VIAL. ONE (07:35)
[2019-05-07 07:36] LABS: PROTHROMBIN TIME PATIENT 15.1 SEC (11.7-14.0)
[2019-05-07] MEDS ORDERED: LIDOCAINE 1% PF 2 ML VIAL. ONE (07:36)
[2019-05-07 07:41] LABS: CALCIUM 9.2 mg/dL (8.5-10.1); CREATININE 1.4 mg/dL (0.6-1.0); GFR 36.2
[2019-05-07] MEDS ORDERED: MIDAZOLAM HCL/PF 2 MG/2 ML VIAL. ONE (08:25)
[2019-05-07] MEDS ORDERED: fentaNYL PF VIAL 100 MCG/2 ML VIAL ONE (08:25)
[2019-05-07] MEDS ORDERED: HEPARIN for IV BOLUS 10,000 UNIT/10 ML VIAL. ONE (08:25)
[2019-05-07] MEDS ORDERED: VERAPAMIL 5 MG/2 ML VIAL. ONE ×2 (08:25→09:00)
[2019-05-07] MEDS ORDERED: NITROGLYCERIN 200 MCG/2 ML SYRINGE FOR CATH/VASC LAB. ONE (08:26)
[2019-05-07] MEDS ORDERED: LIDOCAINE 1% Multi-Dose 20 ML VIAL. ONE (08:58)
[2019-05-07] MEDS ORDERED: fentaNYL PF VIAL 100 MCG/2 ML VIAL IV ONE (10:00)
[2019-05-07] MEDS ORDERED: CONTRAST GIVEN. MC PRN (10:00)
[2019-05-07] MEDS ORDERED: LIDOCAINE 1% Multi-Dose 20 ML VIAL. INJ ONE (10:00)
[2019-05-07] MEDS ORDERED: MIDAZOLAM HCL/PF 2 MG/2 ML VIAL. IV ONE (10:00)
[2019-05-07] MEDS ORDERED: IODIXANOL 320 MG/ML 100 ML VIAL. IART ONE (10:00)
[2019-05-07] MEDS ORDERED: HEPARIN for IV BOLUS 10,000 UNIT/10 ML VIAL. IV ONE (10:15)
--- NOTE | 2019-05-07 10:19 | PDOC1 ---
History and Physical Visit Information Date of Admission: Source: Patient History of Present Illness History of Present Illness Mrs. Loyd is a pleasant 78 y.o with pmhx as noted below presents to the cath lab tech for further evaluation of mitral valve disease. She has had progressive dyspnea and has been less active over the last 1 year. Cardiac Risk Factors Comments 1. CAD s/p PCI to the LAD and RCA in 2016 2. Moderate to severe mitral stenosis 3. Permanent atrial fibrillation 4. CKD, baseline Cr 1.4 5. DM2 6. HTN 7. DLP 8. Arthritis. Current Medications Current Medications Current Medications Fentanyl Citrate (Fentanyl 2ml Vial) 100 mcg 1X ONCE IV Last administered on 05/07/19at 10:00; Start 05/07/19 at 10:00; Stop 05/07/19 at 10:01; Status DC Fentanyl Citrate (Fentanyl 2ml Vial) 100 mcg STK-MED ONCE .ROUTE ; Start 05/07/19 at 08:25; Stop 05/07/19 at 08:26; Status DC Heparin Sodium (Porcine) (Heparin Sodium) 5,500 unit 1X ONCE IV ; Start 05/07/19 at 10:15; Stop 05/07/19 at 10:16; Status DC Heparin Sodium (Porcine) (Heparin Sodium) 10,000 unit STK-MED ONCE .ROUTE ; Start 05/07/19 at 08:25; Stop 05/07/19 at 08:26; Status DC Heparin Sodium/ Sodium Chloride 500 ml @ As Directed STK-MED ONCE .ROUTE ; Start 05/07/19 at 09:45; Stop 05/07/19 at 09:45; Status DC Heparin Sodium/ Sodium Chloride 500 ml @ As Directed STK-MED ONCE .ROUTE ; Start 05/07/19 at 10:04; Stop 05/07/19 at 10:04; Status DC Heparin Sodium/ Sodium Chloride 1,500 ml @ As Directed STK-MED ONCE .ROUTE ; Start 05/07/19 at 07:35; Stop 05/07/19 at 07:36; Status DC Heparin Sodium/ Sodium Chloride (HEPARIN for ARTERIAL LINE FLUSH) 1,000 unit 1X ONCE IART Last administered on 05/07/19at 10:00; Start 05/07/19 at 10:00; Stop 05/07/19 at 10:01; Status DC Info (CONTRAST GIVEN -- Rx MONITORING) 1 each PRN DAILY PRN MC SEE COMMENTS; Start 05/07/19 at 10:00; Stop 05/09/19 at 09:59 Iodixanol (Visipaque 320) 100 ml 1X ONCE IART Last administered on 05/07/19at 10:00; Start 05/07/19 at 10:00; Stop 05/07/19 at 10:01; Status DC Iodixanol (Visipaque 320) 100 ml STK-MED ONCE .ROUTE ; Start 05/07/19 at 07:35; Stop 05/07/19 at 07:35; Status DC Lidocaine HCl (Lidocaine 1% 20ml Vial) 11 ml 1X ONCE INJ Last administered on 05/07/19at 10:00; Start 05/07/19 at 10:00; Stop 05/07/19 at 10:01; Status DC Lidocaine HCl (Lidocaine 1% 20ml Vial) 20 ml STK-MED ONCE .ROUTE ; Start 05/07/19 at 08:58; Stop 05/07/19 at 08:58; Status DC Lidocaine HCl (Xylocaine-Mpf 1% 2ml Vial) 2 ml STK-MED ONCE .ROUTE ; Start 05/07/19 at 07:36; Stop 05/07/19 at 07:36; Status DC Midazolam HCl (Versed) 2 mg 1X ONCE IV Last administered on 05/07/19at 10:00; Start 05/07/19 at 10:00; Stop 05/07/19 at 10:01; Status DC Midazolam HCl (Versed) 2 mg STK-MED ONCE .ROUTE ; Start 05/07/19 at 08:25; Stop 05/07/19 at 08:26; Status DC Nitroglycerin (Nitroglycerin) 200 mcg STK-MED ONCE .ROUTE ; Start 05/07/19 at 08:26; Stop 05/07/19 at 08:26; Status DC Verapamil HCl (Verapamil) 5 mg STK-MED ONCE .ROUTE ; Start 05/07/19 at 08:25; Stop 05/07/19 at 08:26; Status DC Allergies Allergies Allergies Coded Allergies Type Severity Reaction Last Updated Verified colchicine Allergy Intermediate Rash 04/16/19 Yes Social History Comments No alcohol, tob or illicits. Family History Comments NC ROS Review of System Negative unless otherwise noted above in HPI Physical Exam General: Alert, Oriented X3 HEENT: Atraumatic Lungs: Clear to auscultation Heart: Other CHEST: Clear to auscultation, No wheezes Abdomen: Normal bowel sounds Extremities: No clubbing, No edema, Normal pulses Skin: No rashes Neuro: Normal tone Vitals VITALS Vital Signs Date Time Temp Pulse Resp B/P (MAP) Pulse Ox O2 Delivery O2 Flow Rate FiO2 05/07/19 10:12 88 14 92 Room Air 05/07/19 10:00 2.0 05/07/19 07:43 98.0 182/71 (108) 98.0 Labs Labs Laboratory Tests Test 05/07/19 07:14 05/07/19 09:53 White Blood Count 8.9 x10^3/uL (4.0-11.0) Red Blood Count 4.47 x10^6/uL (3.50-5.40) Hemoglobin 12.1 g/dL (12.0-15.5) Hematocrit 37.3 % (36.0-47.0) Mean Corpuscular Volume 83 fL (79-100) Mean Corpuscular Hemoglobin 27 pg (25-35) Mean Corpuscular Hemoglobin Concent 33 g/dL (31-37) Red Cell Distribution Width 16.2 % (11.5-14.5) Platelet Count 324 x10^3/uL (140-400) Prothrombin Time 15.1 SEC (11.7-14.0) Prothromb Time International Ratio 1.2 (0.8-1.1) Sodium Level 138 mmol/L (136-145) Potassium Level 4.0 mmol/L (3.5-5.1) Chloride Level 99 mmol/L (98-107) Carbon Dioxide Level 29 mmol/L (21-32) Anion Gap 10 (6-14) Blood Urea Nitrogen 20 mg/dL (7-20) Creatinine 1.4 mg/dL (0.6-1.0) Estimated GFR (Cockcroft-Gault) 36.2 Glucose Level 155 mg/dL (70-99) Calcium Level 9.2 mg/dL (8.5-10.1) Activated Clotting Time 275 sec (92-181) Laboratory Tests Test 05/07/19 07:14 05/07/19 09:53 White Blood Count 8.9 x10^3/uL (4.0-11.0) Red Blood Count 4.47 x10^6/uL (3.50-5.40) Hemoglobin 12.1 g/dL (12.0-15.5) Hematocrit 37.3 % (36.0-47.0) Mean Corpuscular Volume 83 fL (79-100) Mean Corpuscular Hemoglobin 27 pg (25-35) Mean Corpuscular Hemoglobin Concent 33 g/dL (31-37) Red Cell Distribution Width 16.2 % (11.5-14.5) Platelet Count 324 x10^3/uL (140-400) Prothrombin Time 15.1 SEC (11.7-14.0) Prothromb Time International Ratio 1.2 (0.8-1.1) Sodium Level 138 mmol/L (136-145) Potassium Level 4.0 mmol/L (3.5-5.1) Chloride Level 99 mmol/L (98-107) Carbon Dioxide Level 29 mmol/L (21-32) Anion Gap 10 (6-14) Blood Urea Nitrogen 20 mg/dL (7-20) Creatinine 1.4 mg/dL (0.6-1.0) Estimated GFR (Cockcroft-Gault) 36.2 Glucose Level 155 mg/dL (70-99) Calcium Level 9.2 mg/dL (8.5-10.1) Activated Clotting Time 275 sec (92-181) ECG EKG: A.Fib, w/ vent. rate of: VTE Prophylaxis Ordered VTE Prophylaxis Devices: Yes VTE Pharmacological Prophylaxi: No Assessment/Plan Assessment/Plan 1. Indeterminate mitral valve gradients on surface echo and yohana. 2. Plan for Right and left heart cath with evaluation of valve gradients and coronary disease given progressive dyspnea. RODERICK NGUYỄN MD May 07, 2019 10:19
--- NOTE | 2019-05-07 10:21 | PDOC ---
MODERATE SEDATION ASSESSMENT RISKS/ALTERNATIVES Risks/Alternatives Risks and alternatives of this type of sedation and procedure discussed with: RISK/ALTERNATIVES: Patient H & P ON CHART H & P H & P on chart and reviewed for co-morbid conditions and appropriate labs. H&P ON CHART: Yes STATUS PREG STATUS ASSESSED: N/A MEDS/ALLERGIES REVIEWED Meds/Allergies Reviewed Medications and Allergies including time and route of recently administered narcotics and sedatives. MEDS/ALLERGIES REVIEWED: Yes ASA RATING ASA RATING: II AIRWAY ASSESSMENT Airway Assessment Airway patency, oral function limitations, presence of caps, crowns, dentures, partials, and ability to extend neck assessed. AIRWAY ASSESSMENT: Yes MALLAMPATI SCORE MALLAMPATI SCORE: III PRE-SEDATION ASSESSMENT PRE-SEDATION ASSESSMENT: Yes (late entry) RODERICK NGUYỄN MD May 07, 2019 10:21
[2019-05-07] MEDS ORDERED: NITROGLYCERIN SUBLINGUAL 0.4 MG BOTTLE OF 25. SL PRN (10:30)
[2019-05-07] MEDS ORDERED: 0.9 % SODIUM CHLORIDE 10 ML DISP.SYRIN. IV PRN (10:30)
--- NOTE | 2019-05-07 10:55 | CARD ---
MR#: [id number] Date of Study: 05/07/2019 Ordering Physician: RODERICK LI, Referring Physician: RODERICK LI, Tech: PARISA MOY RTR APPROVED REPORT Technologist: PARISA MOY RTR Nurse: TITO ESTRADA RN Procedure(s) performed: MODERATE SEDATION TIME: 75 MINUTES FLUORO TIME: 16.0 MIN DOSE: 114 GYCM2 CONTRAST: 80ML LHC, RHC, Coronary angiography iFR of the LM/LAD and RCA HISTORY The patient is a 78 year-old male with a history of : renal failure without dialysis, diabetes mellit us with treatment, hypertension, dyslipidemia. INDICATION The indication(s) include : unstable angina , dyspnea, valvular heart disease. [facility] Clinical Frailty Scale [facility] Clinical Frailty Scale: Moderately Frail Heart Failure Heart Failure: Yes If Yes, Newly Diagnosed: No If Yes, HF Type: Diastolic If Yes, NYHA Class: Class III PROCEDURE NARRATIVE The patient was brought electively to the cardiac catheterization lab. A timeout was performed confi rming the patient's name, date of , procedure, and site of procedure. All necessary personnel w ere wearing the appropriate protective equipment and radiation monitor devices. After explaining the risks and benefits of the procedure and alternatives, informed consent was obtained. (See nursing no jerome for medications administered). The right groin was sterilely prepped and draped in the usual fas hion. The right groin was infiltrated with 20 mL of 2% lidocaine for subcutaneous anesthesia. A 6 F sheath was inserted into the right femoral artery without difficulty via the modified seldinger techn ique with an 18G needle and a J-tipped guidewire. Next, an 8Fr sheath was inserted in the right commo n femoral vein in similar fashion without difficulty. A PA catheter was then advanced through the right heart chambers, pressures and saturations were obta ined. Subsequently, right and left coronary angiography was performed using standard JR4 and JL4 diag nostic catheters. Left ventricular end diastolic pressure was obtained with a pigtail catheter and p ullback was performed. HEMODYNAMICS: LVEDP 19 mm Hg AO: 170/79 PCWP: 34/32/28 PA: 56/28/40 RV: 59/5/19 RA: 15/17/13 mm Hg David: 4.1 L/min Tco: 4.7 L/min PA saturation: 64% FA saturation: 95% LEFT VENTRICULOGRAM: Deferred due to CKD and known EF of 60% on NIKOLAS/TTE Mean mitral gradient: LV/PCWP - 14.7 mm Hg. Mean Aortic gradient: 14.6 mm Hg CORONARY ANGIOGRAPHY: LM is a large caliber vessel with a distal 50% stenosis. LAD is a large caliber with long proximal to mid 40% stenosis, patent mid stent in a very tortous seg ment. D1/D2 are small caliber vessels with normal angiographic appearance. LCx is a moderate caliber non-dominant vessel with proximal to mid 50-60% stenosis. OM1 is a moderate caliber vessel with normal angiographic appearance. RCA is a large caliber dominant vessel with a mid 50% stenosis. There is a patent proximal and distal stent. RPDA and RPL are moderate caliber vessels with mild luminal irregularities. INTERVENTIONAL TECHNIQUE: iFR of the LAD and RCA Due to intermediate disease in the left main LAD and circumflex as well as a mid RCA E decision was m ricardo to perform a physiologic study. Heparin was used for an to regulation. Through a 6 Romanian JL4 jayjay de catheter a 0.014 inch pressure wire was advanced to the LAD after appropriate normalization. An IF R value was within normal limits at 0.98. Subsequently, a JR4 guide catheter was used to engage the r ight coronary artery and an IFR value was also measured at 0.88. Final angiography of the left main L AD and RCA did not reveal any acute complications. At case completion, the sheaths were removed via m anual compression after ACT was less than 180. Conclusion 1. Acute on chronic diastolic HF. LVEDP 19 mm Hg 2. Moderate pulmonary HTN, mPA - 40 mm Hg. 3. Cor pulmonale. 4. Normal cardiac output. 5. Mild aortic stenosis. 6. Severe mitral stenosis. 7. Three vessel coronary disease with patent RCA and LAD stents. 8. Mild ischemia of the RCA territory with iFR of 0.88. Negative iFR of the LM/LAD. Recommendations 1. I had a long discussion with the patient and her family regarding etiology of dyspnea. Her source of dyspnea is likely multifactorial but mitral stenosis is likely significantly contributing to her i ssues. 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 They will consi nicole referral to [facility] for high risk valve intervention as needed. Signed by : Roderick Li, Electronically Approved : 05/07/2019 10:54:59
--- NOTE | 2019-05-07 16:36 | NUR ---
Discharge Note: JAJA ROWAN Discharge instructions and discharge home medications reviewed with Patient and a copy given. All questions have been answered and understanding verbalized. The following instructions and handouts were given: Groin Site Care, Moderate Sedation Discontinued lines and drains: Peripheral IV intact. Patient discharged to Home or Self Care with Family Member via Wheelchair
== END 2019-05-07 16:30 | disposition home or self-care (01) ==
LOC: CCL 06:56
PROVIDERS: ATTEND Internal Medicine Cardiovascular Disease
DX: I25.110 Atherosclerotic heart disease of native coronary artery with unstable angina pectoris (principal); I13.0 Hypertensive heart and chronic kidney disease with heart failure and stage 1 through stage 4 chronic kidney disease, or unspecified chronic kidney disease; E11.22 Type 2 diabetes mellitus with diabetic chronic kidney disease; N18.9 Chronic kidney disease, unspecified; I50.33 Acute on chronic diastolic (congestive) heart failure; I27.20 Pulmonary hypertension, unspecified; I08.0 Rheumatic disorders of both mitral and aortic valves; I48.21 Permanent atrial fibrillation; Z79.84 Long term (current) use of oral hypoglycemic drugs; Z87.39 Personal history of other diseases of the musculoskeletal system and connective tissue
CPT/HCPCS: 36415; 80048; 85027; 85347; 85610; 93460; 93571; 99152; 99153; C1769; C1773; C1887; C1892; J1644; J2250; J3010; Q9967

== ENCOUNTER → 2019-06-04 | Outpatient (CLI) | payer MEDICARE ==
[2019-05-07 16:05] VITALS: BP 153/66
[~2019-06-04] MED LIST changes: +SIMV40TA18 PO; -SIMV40TA3 PO
--- NOTE | 2019-06-04 12:27 | RAD ---
DATE: 06/04/2019. EXAM: DIGITAL DIAGNOSTIC BILATERAL. HISTORY: Personal history of right breast cancer. Routine surveillance. COMPARISON: 05/27/2018. This study was interpreted with the benefit of Computerized Aided Detection (CAD). FINDINGS: Breast Density: SCATTERED The breast parenchyma shows scattered fibroglandular densities. Breast parenchyma level B.. There are diffuse scattered, secretory and vascular calcifications. There are no suspicious masses, microcalcifications or architectural distortion. The parenchymal pattern is stable. BI-RADS CATEGORY: 2 BENIGN FINDING(S). RECOMMENDED FOLLOW-UP: 12M 12 MONTH FOLLOW-UP. PQRS compliance statement: Patient information was entered into a reminder system with a target due date 06/04/2020 for the next mammogram. Mammography is a sensitive method for finding small breast cancers, but it does not detect them all and is not a substitute for careful clinical examination. A negative mammogram does not negate a clinically suspicious finding and should not result in delay in biopsying a clinically suspicious abnormality. "Our facility is accredited by the [employer] Mammography Program."
== END | disposition home or self-care (01) ==
LOC: MAMMO 11:02
PROVIDERS: ATTEND Internal Medicine Hematology & Oncology
DX: N64.89 Other specified disorders of breast (principal); D05.91 Unspecified type of carcinoma in situ of right breast; Z85.3 Personal history of malignant neoplasm of breast
CPT/HCPCS: 77066

== ENCOUNTER → 2020-04-11 | Outpatient (CLI) | payer MEDICARE ==
[2019-05-07 16:05] VITALS: BP 153/66
--- NOTE | 2020-04-11 12:22 | CARD ---
MR#: [id number] Date of Study: 04/11/2020 Ordering Physician: RODERICK LI, Referring Physician: RODERICK LI, Tech: Eugenia Leonard APPROVED REPORT EXAM: Two-dimensional and M-mode echocardiogram with Doppler and color Doppler. Other Information Quality : AverageHR: 88bpm INDICATION Cardiac Disease: CAD RISK FACTORS Hypertension Hyperlipidemia Diabetes Asthma 2D DIMENSIONS RVDd3.3 (2.9-3.5cm)Left Atrium(2D)3.8 (1.6-4.0cm) IVSd1.1 (0.7-1.1cm)Aortic Root(2D)3.3 (2.0-3.7cm) LVDd4.8 (3.9-5.9cm)LVOT Diameter2.0 (1.8-2.4cm) PWd1.1 (0.7-1.1cm)LVDs2.4 (2.5-4.0cm) FS (%) 51.0 %SV90.4 ml LVEF(%)82.1 (>50%) Aortic Valve AoV Peak Tyshawn.267.6cm/sAoV VTI57.3cm AO Peak GR.28.6mmHgLVOT Peak Tyshawn.116.4cm/s LVOT VTI 28.85cmAO Mean GR.17mmHg FLIP (VMAX)0.82sg5BXR (VTI)1.54cm2 Mitral Valve MV E Fldlplvk182.4cm/sMV E Peak Gr.102mmHg MV DECEL [id number] A Rjhkhsrf21.5cm/s MV E Mean Gr.6mmHgMV USM84jx E/A Ratio3.4MVA (PHT)2.48cm2 Pulmonary Valve PV Peak Fnkqnenw246.2cm/sPV Peak Grad.4mmHg Tricuspid Valve TR P. Cxoifffg704mr/sRAP KIFTVCCE5mrMj TR Peak Gr.73zgUfBTIU49wrVa LEFT VENTRICLE The left ventricle is normal size. There is borderline to mild concentric left ventricular hypertroph y. The left ventricular systolic function is normal and the ejection fraction is within normal range. The Ejection Fraction is 55-60%. Septal motion consistent with conduction abnormality. Tissue Dopple r imaging reveals moderate left ventricular diastolic dysfunction. RIGHT VENTRICLE The right ventricle is moderately dilated. There is normal right ventricular wall thickness. The righ t ventricular systolic function is normal. ATRIA The left atrium is moderately dilated. The right atrium is mildly dilated. The interatrial septum is intact with no evidence for an atrial septal defect or patent foramen ovale as noted on 2-D or Dopple r imaging. AORTIC VALVE The aortic valve is heavily calcified with restricted leaflet motion. Doppler and Color Flow revealed trace aortic regurgitation. Calculated aortic valve area is 1.90 cm2 with maximum pressure gradient of 32 mmHg and mean pressure gradient of 18 mmHg. Doppler and color-flow analysis revealed mild aorti c stenosis. MITRAL VALVE Mitral annular calcification is severe There is no evidence of mitral valve prolapse. There is modera te mitral valve stenosis with a mean gradient of 7 mmHg. Doppler and Color-flow revealed trace mitral regurgitation. TRICUSPID VALVE The tricuspid valve is normal in structure and function. Doppler and Color Flow revealed mild tricusp id regurgitation with an estimated PAP of 44 mmHg. There is no tricuspid valve stenosis. PULMONIC VALVE The pulmonic valve is not well visualized. Doppler and Color Flow revealed no pulmonic valvular regur gitation. There is no pulmonic valvular stenosis. GREAT VESSELS The aortic root is normal in size. The ascending aorta is normal in size. The IVC is normal in size a nd collapses >50% with inspiration. PERICARDIAL EFFUSION There is no evidence of significant pericardial effusion. Critical Notification Critical Value: No <Conclusion> The left ventricular systolic function is normal and the ejection fraction is within normal range. Th e Ejection Fraction is 55-60%. Septal motion consistent with conduction abnormality. The right ventricle is moderately dilated. Calculated aortic valve area is 1.90 cm2 with maximum pressure gradient of 32 mmHg and mean pressure gradient of 18 mmHg. Doppler and color-flow analysis revealed mild aortic stenosis. There is moderate mitral valve stenosis with a mean gradient of 7 mmHg. Doppler and Color Flow revealed mild tricuspid regurgitation with an estimated PAP of 44 mmHg. Signed by : Roderick Li, Electronically Approved : 04/11/2020 12:22:18
== END | disposition home or self-care (01) ==
LOC: ECHO 08:00
PROVIDERS: ATTEND Internal Medicine Cardiovascular Disease
DX: I08.3 Combined rheumatic disorders of mitral, aortic and tricuspid valves (principal); I25.10 Atherosclerotic heart disease of native coronary artery without angina pectoris
CPT/HCPCS: 93306

== ENCOUNTER 2020-06-30 01:45 | Inpatient (IN) | payer MEDICARE ==
[~2020-06-30] VITALS: Ht 180.3 cm; Wt 98.4 kg
[2020-06-30] VITALS (20 sets, daily range): BP systolic 134–169; BP diastolic 43–90
--- NOTE | 2020-06-30 01:57 | PHYS DOC ---
Past Medical History Smoking Status: Never Smoker General Adult EDM: Chief Complaint: MECHANICAL FALL HPI: HPI: 79-year-old female with history of hypertension, hyperlipidemia, diabetes mellitus, chronic kidney disease, atrial fibrillation on Coumadin, mitral stenosis, CAD s/p PCI, who presents for evaluation of lightheadedness that resulted in a fall. The patient was using the bathroom prior to arrival. When she stood up, she became lightheaded and fell. No syncopal episode. She did strike her head and sustained a left frontal scalp hematoma. She last took her Coumadin this evening at 1999. Also reports a mild abrasion to the left anterior knee, with good active range of motion. No chest pain, abdominal pain, neck or back pain. Scheduled for TAVR at [facility] at the end of the month. Review of Systems: Review of Systems: Gen: No fever, chills. Eyes: No blurred vision, diplopia. ENT: No facial pain, epistaxis. CV: No CP, syncope. Resp. No SOB, cough. GI: No abd pain, N/V. : No perineal pain, hematuria. Neuro: No dizziness, weakness. Reports head injury. MSK: No myalgia, back pain. Reports arthralgia. Skin: Reports hematoma and abrasion. Heart Score: Risk Factors: Risk Factors: DM, Current or recent (<one month) smoker, HTN, HLP, family history of CAD, obesity. Risk Scores: Score 0 - 3: 2.5% MACE over next 6 weeks - Discharge Home Score 4 - 6: 20.3% MACE over next 6 weeks - Admit for Clinical Observation Score 7 - 10: 72.7% MACE over next 6 weeks - Early Invasive Strategies Allergies: Allergies: Allergies Coded Allergies Type Severity Reaction Last Updated Verified colchicine Allergy Intermediate Rash 04/16/19 Yes Physical Exam: PE: Gen: NAD. Well nourished. Head: Normocephalic. Left frontal scalp hematoma without gaping laceration. Eyes: No scleral icterus. No conjunctival injection. PERRL. ENT: MMM. Posterior OP clear. No epistaxis or septal hematoma. Neck: Supple. NT. Full AROM. CV: Irregularly irregular. Peripheral pulses intact. Resp: CTAB. Chest: No anterior chest wall TTP. Symmetric chest rise. Abd: Soft. NT. ND. MSK: No peripheral cyanosis. No edema. Mild abrasion left anterior knee without limitations in active range of motion. Left lateral toes amputated. Back: No midline spinal TTP or stepoffs. Neuro: A&Ox3. Strength & sensation grossly intact throughout. GCS 15. Skin. Warm. Dry. Psych: Appropriate mood & affect. Current Patient Data: Labs: Laboratory Tests Test 06/30/20 02:25 White Blood Count 9.7 x10^3/uL (4.0-11.0) Red Blood Count 4.62 x10^6/uL (3.50-5.40) Hemoglobin 12.7 g/dL (12.0-15.5) Hematocrit 38.5 % (36.0-47.0) Mean Corpuscular Volume 83 fL (79-100) Mean Corpuscular Hemoglobin 28 pg (25-35) Mean Corpuscular Hemoglobin Concent 33 g/dL (31-37) Red Cell Distribution Width 16.8 % (11.5-14.5) Platelet Count 306 x10^3/uL (140-400) Neutrophils (%) (Auto) 73 % (31-73) Lymphocytes (%) (Auto) 16 % (24-48) Monocytes (%) (Auto) 10 % (0-9) Eosinophils (%) (Auto) 1 % (0-3) Basophils (%) (Auto) 1 % (0-3) Neutrophils # (Auto) 7.1 x10^3/uL (1.8-7.7) Lymphocytes # (Auto) 1.6 x10^3/uL (1.0-4.8) Monocytes # (Auto) 0.9 x10^3/uL (0.0-1.1) Eosinophils # (Auto) 0.1 x10^3/uL (0.0-0.7) Basophils # (Auto) 0.1 x10^3/uL (0.0-0.2) Prothrombin Time 23.7 SEC (11.7-14.0) Prothromb Time International Ratio 2.1 (0.8-1.1) Sodium Level 135 mmol/L (136-145) Chloride Level 97 mmol/L (98-107) Carbon Dioxide Level 28 mmol/L (21-32) Anion Gap 10 (6-14) Blood Urea Nitrogen 46 mg/dL (7-20) Estimated GFR (Cockcroft-Gault) 22.6 Glucose Level 170 mg/dL (70-99) Calcium Level 9.6 mg/dL (8.5-10.1) Troponin I Quantitative < 0.017 ng/mL (0.000-0.055) EKG: EKG: EKG at 0150. Atrial fibrillation. Heart rate 62. Nonspecific ST changes. No STEMI. Interpreted by me. Radiology/Procedures: Radiology/Procedures: PROCEDURE: CT HEAD AND CERVICAL SPINE WO INDICATION: Reason: Fall on coumadin / Spl. Instructions: / History: . COMPARISON: None. TECHNIQUE: Axial CT images obtained through the head and cervical spine. One or more of the following individualized dose reduction techniques were utilized for this examination: 1. Automated exposure control; 2. Adjustment of the mA and/or kV according to patient size; 3. Use of iterative reconstruction technique. FINDINGS: Head: Left frontal scalp cephalohematoma. No midline shift. Suprasellar cistern is not effaced. Scattered foci of low density within the white matter. Nonspecific but can be seen with chronic small vessel ischemic disease. There is a more focal region of low density in the right frontal region which could be from prior insult. Couple small foci of high density identified including a small focus in the right temporal region as well as right cerebral hemisphere posteriorly near vertex. Diffuse prominence of the ventricles and sulci. Calcific atherosclerosis. Cervical spine: Degenerative changes throughout the cervical spine with disc osteophyte complexes as well as facet and uncovertebral hypertrophy with multilevel central canal and neural foraminal stenosis. Osseous demineralization. There are some probable callus formation at upper ribs from prior injury. No evidence of acute fracture or dislocation. IMPRESSION: * There is a couple of punctate foci of high density including within the right temporal region as well as right cerebral hemisphere near the vertex. This is a very mild finding but given the patient's head trauma a small focus of subarachnoid hemorrhage could have this appearance. Follow-up could be obtained to ensure no increase in this finding. * Left frontal scalp cephalohematoma. * Degenerative changes throughout the cervical spine without acute fracture or dislocation. Report called to the ER at 3:10 AM Electronically signed by: Juan Loyd MD (06/30/2020 3:14 AM) [id number] Course & Med Decision Making: Course & Med Decision Making Pertinent Labs and Imaging studies reviewed. 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 No other outward signs of injury other than left knee abrasion, with otherwise good AROM. No focal neuro deficits. EKG with rate controlled AF. Labs with mild dehydration given IVFB. INR therapeutic at 2.1. CTH/CS with possible subarachnoid blood of right cerebral vertex/temporal region. At 0305, patient had a witnessed episode where she was talking to her daughter, paused and "jumped" in bed. Review of tele strip showed an 8 second sinus pause, now back in rate controlled AF in the 60s. BP is nml to slightly elevated. Again at 0518, patient had a 5 second sinus pause, though apparently asymptomatic. Spoke with Dr. Li re: sinus pauses and concern for SSS. Rec reversing INR which is being done, and will plan for pacemaker this morning. If recurrent episodes, rec atropine, isoprel or dopamine. BP remains normal to elevated. Spok e with Trang COUNTER TACKER with Dr. Douglas, in agreement with reversing coumadin. I'll order repeat CTH for later today as well. Patient states she has a recorded DNR. Angelita Disclaimer: Angelita Disclaimer: This electronic medical record was generated, in whole or in part, using a voice recognition dictation system. Departure Departure Impression: Primary Impression: Sick sinus syndrome Additional Impressions: Subarachnoid hemorrhage CAESAR (acute kidney injury) Disposition: 09 ADMITTED INPT THIS HOSP Admitting Physician: Elisabeth Corcoran Condition: CRITICAL Referrals: ELISABETH CORCORAN MD (PCP) Critical Care Time Critical care time was [60] minutes exclusive of procedures. LINDA JACOBSON DO Jun 30, 2020 01:57
[2020-06-30] MEDS ORDERED: IV NORMAL SALINE 500ML BAG 500 ML IV ONE ×2 (02:30→04:00)
[2020-06-30 02:35] LABS: BASO # 0.1 x10^3/uL (0.0-0.2); BASO % 1 % (0-3); EOS # 0.1 x10^3/uL (0.0-0.7); EOS % 1 % (0-3); HEMATOCRIT 38.5 % (36.0-47.0); HEMOGLOBIN 12.7 g/dL (12.0-15.5); LYMPH # 1.6 x10^3/uL (1.0-4.8); LYMPH % 16 % (24-48); MEAN CORPUSCULAR HEMOGLOBIN 28 pg (25-35); MEAN CORPUSCULAR HGB CONC 33 g/dL (31-37); MEAN CORPUSCULAR VOLUME 83 fL (79-100); MONO # 0.9 x10^3/uL (0.0-1.1); MONO % 10 % (0-9); NEUT # 7.1 x10^3/uL (1.8-7.7); NEUT % 73 % (31-73); PLATELET COUNT 306 x10^3/uL (140-400); RED BLOOD COUNT 4.62 x10^6/uL (3.50-5.40); RED CELL DISTRIBUTION WIDTH 16.8 % (11.5-14.5); WHITE BLOOD COUNT 9.7 x10^3/uL (4.0-11.0)
[2020-06-30 02:46] LABS: CALCIUM 9.6 mg/dL (8.5-10.1); CREATININE 2.1 mg/dL (0.6-1.0); GFR 22.6; MAGNESIUM 2.1 mg/dL (1.8-2.4); POTASSIUM 3.9 mmol/L (3.5-5.1); PROTHROMBIN TIME PATIENT 23.7 SEC (11.7-14.0)
--- NOTE | 2020-06-30 03:16 | RAD ---
INDICATION: Reason: Fall on coumadin / Spl. Instructions: / History: . COMPARISON: None. TECHNIQUE: Axial CT images obtained through the head and cervical spine. One or more of the following individualized dose reduction techniques were utilized for this examinat ion: 1. Automated exposure control; 2. Adjustment of the mA and/or kV according to patient size; 3 . Use of iterative reconstruction technique. FINDINGS: Head: Left frontal scalp cephalohematoma. No midline shift. Suprasellar cistern is not effaced. Scattered foci of low density within the white matter. Nonspecific but can be seen with chronic small vessel ischemic disease. There is a more focal region of low density in the right frontal region whi ch could be from prior insult. Couple small foci of high density identified including a small focus in the right temporal region as well as right cerebral hemisphere posteriorly near vertex. Diffuse prominence of the ventricles and sulci. Calcific atherosclerosis. Cervical spine: Degenerative changes throughout the cervical spine with disc osteophyte complexes as well as facet an d uncovertebral hypertrophy with multilevel central canal and neural foraminal stenosis. Osseous demineralization. There are some probable callus formation at upper ribs from prior injury. No evidence of acute fracture or dislocation. IMPRESSION: * There is a couple of punctate foci of high density including within the right temporal region as w ell as right cerebral hemisphere near the vertex. This is a very mild finding but given the patient's head trauma a small focus of subarachnoid hemorrhage could have this appearance. Follow-up could be obtained to ensure no increase in this finding. * Left frontal scalp cephalohematoma. * Degenerative changes throughout the cervical spine without acute fracture or dislocation. Report c alled to the ER at 3:10 AM Electronically signed by: Juan Loyd MD (06/30/2020 3:14 AM) [id number]
[2020-06-30] MEDS ORDERED: ONDANSETRON PF 4 MG/2 ML VIAL. IV PRN (03:45)
[2020-06-30] MEDS ORDERED: ISOPROTERENOL 1 MG in IV DEXTROSE 5% 250 ML IV PRN (04:00)
[2020-06-30] MEDS ORDERED: PHYTONADIONE 10 MG/ML ORAL SOLUTION. PO ONE (04:00)
--- NOTE | 2020-06-30 05:51 | NUR ---
Patient arrived to ICU room 115 via gurney accompanied by ED RN. Patient attached to ICU monitors. Patient SR/SB with PVC and pauses on monitor, S1S2 heart tones heard, lungs CTA, pulses palpable, A&Ox4, patent IVx1 present, fast patches in place, no complaints of pain at this time, able to move around in bed but gets SOA easily. Patient has bruise/small cut on head and small cut on L knee from fall. Patient voided in bedpan upon arrival to ICU. Patient states she is generally independent at home--lives with daughter and grandson. Patient oriented to unit routines, call light, bed controls, tv controls, activity (BR), and diet (NPO). Patient provided with mouth swabs and asked admission questions. See admission assessment and admission vital signs for further information. FFP currently thawing--will give prior to procedure this AM. Reassessments of NSx2 not completed by ED RN, documented as "not done" by this RN. Patient currently missing a few pieces of clothing that she was wearing when she came in--ED notified and stated they will send them up in the tube system. VSS at this time, will continue to monitor. Addendum: 06/30/20 at 0557 by SADIA STEWARD RN RN Patient states she takes many medications and is able to list some of them but does not know doses. States she has a list in her wallet at home and will have her daughter bring it up today. Will pass on to day shift RN.
[2020-06-30] MEDS ORDERED: BACITRACIN 50,000 UNIT in IV NORMAL SALINE 250ML 250 ML IRR ONE (09:15)
[2020-06-30] MEDS ORDERED: ACETAMINOPHEN 325 MG TABLET. PO PRN (10:15)
--- NOTE | 2020-06-30 10:23 | EKG ---
[facility] [address] [place] [address] Test Date: 2020-06-30 Test Time: 10:21:24 Pat Name: JAJA ROWAN Department: Room: 115 1 Gender: F Collector Of Port: MATHEW : 1940 Requested By: ELISABETH AYON Order Number: [id number] Reading MD: Measurements Intervals [place] Rate: 60 P: CO: QRS: 101 QRSD: 126 T: 1 QT: 464 QTc: 464 Interpretive Statements IRREGULAR RHYTHM, NO P-WAVE FOUND RIGHTWARD AXIS RIGHT BUNDLE BRANCH BLOCK ABNORMAL ECG RI6.02 Compared to ECG 06/30/2020 01:50:51 Right bundle-branch block now present Incomplete right bundle-branch block no longer present T-wave abnormality no longer present
--- NOTE | 2020-06-30 10:27 | PDOC ---
Provider Note Date of Service: DATE: 06/30/20 TIME: 10:20 Provider Note patient seen and examined consulted for possible subarachnoid hematoma s/p fall denies headache neuro intact, Left frontal scalp hematoma. CT with punctate foci of high density including within the right temporal region as well as right cerebral hemisphere near the vertex. This is a very mild finding but given the patient's head trauma a small focus of subarachnoid hemorrhage could have this appearance follow up CT today scheduled for pacemaker today follow up labs pending D/W RN Justifications for Admission Other Justification ROCHELLE ESTEBAN DATABASE DESIGN ANALYST Jun 30, 2020 10:27
--- NOTE | 2020-06-30 10:37 | PDOC ---
Provider Note Date of Service: DATE: 06/30/20 TIME: 10:37 Provider Note H&P dictated [id number] Justifications for Admission Other Justification ELISABETH AYON MD Jun 30, 2020 10:37
--- NOTE | 2020-06-30 10:55 | HP ---
ADMIT DATE: 06/30/2020 HISTORY OF PRESENT ILLNESS: This 79-year-old female who has a history of atrial fibrillation, severe mitral stenosis, severe aortic stenosis, pulmonary hypertension, diabetes mellitus type 2, congestive heart failure, peripheral artery disease and multiple other medical problems, was having episodes of lightheadedness recently. She is scheduled for a TAVR procedure towards the end of the month at [facility] for aortic stenosis. She suddenly became lightheaded last night and fell. She did not pass out. She hit the left side of her head and she is on Coumadin. Because of that, she came to the Emergency Room. In the Emergency Room, she was noted to have an 8-second sinus pause. This was also followed later by a 5-second sinus pause. CT scan of head revealed a couple of punctate foci of high density including within the right temporal region as well as right cerebral hemisphere near the vertex. This is a very mild finding, but given the patient's head trauma, a small focus of subarachnoid hemorrhage could have this appearance. Followup could be obtained to ensure no increase in this finding. The patient also was noted to have a left frontal scalp cephalohematoma and degenerative changes throughout the cervical spine without any acute fracture or dislocation. Because of the suspicion for subarachnoid hemorrhage with fall and head injury along with sick sinus syndrome with very significant pauses, the patient was admitted to Intensive Care Unit for further management. Plan was to put a permanent pacemaker in the hospital. REVIEW OF SYSTEMS: At present time, the patient does admit to episodes of lightheadedness. She denies any chest pains, palpitations or dyspnea. Denies any abdominal pain, nausea, vomiting or GI bleeding. She does have joint pains and back pain. Other systems reviewed and are negative. 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 PAST SURGICAL HISTORY: Includes a right breast lumpectomy, multiple cardiac procedures. SOCIAL HISTORY: No history of smoking, alcoholism or drug abuse. MEDICATIONS: Reviewed. We will need to verify the medications with the family also. ALLERGIES: THE PATIENT IS ALLERGIC TO COLCHICINE. FAMILY HISTORY: Premature CAD in mother and father. PHYSICAL EXAMINATION: VITAL SIGNS: Temperature 97.7, pulse 60 per minute, respirations 22 per minute, blood pressure 168/54 mmHg. GENERAL: The patient is an elderly female who is alert, oriented x 3 and not in acute distress. SKIN: Warm and dry. The patient has a bruise and swelling and abrasion on the left frontal and temporal forehead. EYES: Pupils reacting to light. Conjunctivae pale. Sclerae muddy. HENT: Unremarkable. NECK: Supple. JVP normal. No thyromegaly. Trachea midline. LUNGS: Decreased breath sounds at bases. CARDIOVASCULAR: S1, S2 regular. ABDOMEN: Soft, nontender, no guarding, no rigidity. Bowel sounds present. EXTREMITIES: No edema. CENTRAL NERVOUS SYSTEM: Alert and oriented, moves all extremities. LABORATORY FINDINGS: Sodium 135, potassium 3.9, BUN 46, creatinine 2.1, glucose 170, calcium 9.6. Troponin less than 0.017. WBC count 9.7, hemoglobin 12.7, platelet count 306,000. INR 2.1. SARS-CoV-2 Ag rapid test negative. CT findings as noted earlier. FINAL DIAGNOSES: 1. Closed head injury with possible subarachnoid hemorrhage on the left side. 2. Sick sinus syndrome. 3. Coronary artery disease. 4. Diabetes mellitus type 2 with neuropathy. 5. Hyperlipidemia. 6. Congestive heart failure. 7. Atrial fibrillation. 8. Severe mitral stenosis. 9. Severe aortic stenosis. 10. Pulmonary hypertension. 11. Chronic kidney disease 4. 12. Asthma. 13. Hyperlipidemia. 14. History of depression. 15. Osteoarthritis. PLAN: 1. Consult Dr. Douglas for neurosurgical evaluation and management. 2. Sick sinus syndrome and sinus pauses. 3. Consult Dr. Li for cardiology evaluation and management. A pacemaker is to be inserted this afternoon. The patient was given vitamin K in the Emergency Room and the patient has also received fresh frozen plasma. INR is 2.1. 4. Atrial fibrillation. INR is 2.1. Hold Coumadin and Plavix due to head injury and planned procedure. 5. Coronary artery disease. Continue present treatment. 6. Diabetes mellitus type 2. Verify home medications. We will discontinue metformin and insulin and just use sliding scale insulin for now. 7. Aortic stenosis. The patient has been scheduled for TAVR at [facility] towards the end of the month. 8. Severe mitral stenosis. Continue to monitor. 9. For details, please refer to the orders. Recheck labs in a.m. ELISABETH AYON MD DR: MAURICIO/nikhil JOB#: [id number] / [id number]
[2020-06-30] MEDS: hydroCHLOROthiazide 12.5 MG CAPSULE PO SCH (11:00)
[2020-06-30] MEDS: MAGNESIUM OXIDE 400 MG TABLET PO SCH (11:00)
[2020-06-30] MEDS: LISINOPRIL 20 MG TABLET PO SCH (11:00)
[2020-06-30] MEDS: CHOLECALCIFEROL (VITAMIN D3) 1,000 UNIT TABLET PO SCH (11:00)
--- NOTE | 2020-06-30 11:36 | RAD ---
EXAM: CT head without contrast INDICATION: Follow-up possible subarachnoid hemorrhage COMPARISON: The head 06/30/2020 TECHNIQUE: Axial CT imaging through the head without intravenous contrast. One or more of the following individualized dose reduction techniques were utilized for this examinat ion: 1. Automated exposure control 2. Adjustment of the mA and/or kV according to patient size 3. Use of iterative reconstruction technique. FINDINGS: There is no intracranial hemorrhage, acute infarct, or mass lesion. Argueta-white matter differentiation is maintained. Ventricles and sulci are mildly enlarged. The skull is intact. Paranasal sinuses and mastoid air cells are clear. Globes and orbits are intact. Left frontal scalp hematoma is unchanged.. IMPRESSION: 1. No intracranial hemorrhage. 2. Small left frontal scalp hematoma. Electronically signed by: Barbara Marroquin MD (06/30/2020 11:34 AM) [id number]
[2020-06-30 11:42] LABS: PROTHROMBIN TIME PATIENT 20.5 SEC (11.7-14.0)
[2020-06-30] MEDS ORDERED: MIDAZOLAM HCL/PF 5 MG/5 ML VIAL. ONE (12:06)
[2020-06-30] MEDS ORDERED: fentaNYL PF VIAL 100 MCG/2 ML VIAL ONE (12:07)
--- NOTE | 2020-06-30 12:13 | NUR ---
Patient taken to laborer plumbing via bed accompanied by laborer plumbing personnel.
[2020-06-30] MEDS ORDERED: LIDOCAINE 2%/EPI 1:100,000 20 ML VIAL. ONE (12:16)
[2020-06-30] MEDS ORDERED: AMIODARONE 150 MG/3 ML VIAL ONE (13:17)
[2020-06-30] MEDS ORDERED: AMIODARONE 150 MG/3 ML VIAL IVP ONE (13:30)
[2020-06-30] MEDS ORDERED: LIDOCAINE 2% Multi-Dose 20 ML VIAL. IJ ONE (13:30)
[2020-06-30] MEDS ORDERED: MIDAZOLAM HCL/PF 5 MG/5 ML VIAL. IV ONE (13:30)
[2020-06-30] MEDS ORDERED: fentaNYL PF VIAL 100 MCG/2 ML VIAL IV ONE (13:30)
[2020-06-30] MEDS ORDERED: PHYTONADIONE 10 MG/ML AMPUL. SQ ONE (13:45)
--- NOTE | 2020-06-30 14:04 | PDOC2 ---
HALLIE ALVARADO [employer]ER 06/30/20 1404: CARDIAC CONSULT DATE OF CONSULT Date of Consult DATE: 06/30/20 TIME: 13:37 REASON FOR CONSULT Reason for Consult: SSS REFERRING PHYSICIAN Referring Physician: Nilo SOURCE Source: Chart review, Patient HISTORY OF PRESENT ILLNESS HISTORY OF PRESENT ILLNESS This is a pleasant 79 yo female admitted for complains of feeling lightheaded and fall. Reports that she has been getting dizzy starting Saturday and has been feeling fatigue. The same as Saturday but a littel better. She went ahead and see her PCP Saturday and still feels the same. Denies any palpitations SOA or chest pain. No unilateral weakness, dysarthria. It was midnight and was at the bathroom and sitting when she felt lightheaded and fell forward. There was no complete loss of consciousness but she did strike her head and sustained a left frontal scalp hematoma. Further imaging showed possible SAH. She does take coumading for stroke prevention with hx of PAFIB. Presesntly no chest pain, SOA and no JACOB. PAST MEDICAL HISTORY Cardiovascular: AFIB, CAD, CHF, HTN, Hyperlipidemia, Aortic stenosis, Valve insufficiency, Pulmonary hypertension Pulmonary: No pertinent hx CENTRAL NERVOUS SYSTEM: Periperal neuropathy Heme/Onc: Anemia NOS, Cancer (breast) Psych: Anxiety, Depression Musculoskeletal: Osteoarthritis Rheumatologic: Gout Endocrine: Diabetes (2) Dermatology: No pertinent hx PAST SURGICAL HISTORY Past Surgical History: Arthroscopy (right knee), Other (right breast lumpectomy; toe amputation; LLE arterial leg bypass; PCI) FAMILY HISTORY Family History: Coronary Artery Disease (father) SOCIAL HISTORY Smoke: No ALCOHOL: none Drugs: None Lives: with Family (daughter) CURRENT MEDICATIONS CURRENT MEDICATIONS Current Medications Medications (Trade) Dose Ordered Sig/Giuseppe Route PRN Reason Start Time Stop Time Status Last Admin Dose Admin Sodium Chloride 500 ml @ 500 mls/hr 1X ONCE IV 06/30/20 02:30 06/30/20 03:29 DC 06/30/20 03:42 Phytonadione (Mephyton Oral Soln) 5 mg 1X ONCE PO 06/30/20 04:00 06/30/20 04:01 DC 06/30/20 03:32 Sodium Chloride 500 ml @ 500 mls/hr 1X ONCE IV 06/30/20 04:00 06/30/20 04:59 DC 06/30/20 03:43 Bacitracin 70764 unit/Sodium Chloride 250 ml @ 0 mls/hr 1X ONCE IRR 06/30/20 09:15 06/30/20 09:16 DC 06/30/20 09:15 Midazolam HCl (Versed) 3 mg 1X ONCE IV 06/30/20 13:30 06/30/20 13:31 UNV 06/30/20 12:53 Fentanyl Citrate (Fentanyl 2ml Vial) 75 mcg 1X ONCE IV 06/30/20 13:30 06/30/20 13:31 UNV 06/30/20 12:53 Lidocaine HCl (Lidocaine 2% 20ml Vial) 40 ml 1X ONCE IJ 06/30/20 13:30 06/30/20 13:31 UNV 06/30/20 13:30 Amiodarone HCl (Cordarone) 150 mg 1X ONCE IVP 06/30/20 13:30 06/30/20 13:31 UNV 06/30/20 13:30 ALLERGIES ALLERGIES: Coded Allergies: colchicine (Verified Allergy, Intermediate, Rash, 04/16/19) itching and rash formed ROS Review of System 14 point ROS evaluated with pertinent positives noted per HPI PHYSICAL EXAM General: Alert, Oriented X3, Cooperative, No acute distress HEENT: Atraumatic, Mucous membr. moist/pink Lungs: Clear to auscultation, Normal air movement Heart: Regular rate (junctional), Other (4/6 systolic murmur to HARMONY border) Extremities: No cyanosis, No edema Skin: No rashes Neuro: Normal speech, Sensation intact Psych/Mental Status: Mental status NL, Mood NL MUSCULOSKELETAL: Osteoarthritic changes both hands VITALS/I&O VITALS/I&O: Vital Signs Date Time Temp Pulse Resp B/P (MAP) Pulse Ox O2 Delivery O2 Flow Rate FiO2 06/30/20 13:30 66 06/30/20 12:53 18 99 Nasal Cannula 2.0 06/30/20 11:00 138/58 (84) 06/30/20 08:44 97.7 97.7 I & O 06/29/20 06/29/20 06/30/20 14:59 22:59 06:59 Intake Total 1000 ml Balance 1000 ml LABS Lab: Laboratory Tests Test 06/30/20 02:25 06/30/20 04:48 06/30/20 09:50 06/30/20 12:04 White Blood Count 9.7 x10^3/uL (4.0-11.0) Red Blood Count 4.62 x10^6/uL (3.50-5.40) Hemoglobin 12.7 g/dL (12.0-15.5) Hematocrit 38.5 % (36.0-47.0) Mean Corpuscular Volume 83 fL (79-100) Mean Corpuscular Hemoglobin 28 pg (25-35) Mean Corpuscular Hemoglobin Concent 33 g/dL (31-37) Red Cell Distribution Width 16.8 % (11.5-14.5) H Platelet Count 306 x10^3/uL (140-400) Neutrophils (%) (Auto) 73 % (31-73) Lymphocytes (%) (Auto) 16 % (24-48) L Monocytes (%) (Auto) 10 % (0-9) H Eosinophils (%) (Auto) 1 % (0-3) Basophils (%) (Auto) 1 % (0-3) Neutrophils # (Auto) 7.1 x10^3/uL (1.8-7.7) Lymphocytes # (Auto) 1.6 x10^3/uL (1.0-4.8) Monocytes # (Auto) 0.9 x10^3/uL (0.0-1.1) Eosinophils # (Auto) 0.1 x10^3/uL (0.0-0.7) Basophils # (Auto) 0.1 x10^3/uL (0.0-0.2) Prothrombin Time 23.7 SEC (11.7-14.0) H 20.5 SEC (11.7-14.0) H Prothrombin Time INR 2.1 (0.8-1.1) H 1.8 (0.8-1.1) H Sodium Level 135 mmol/L (136-145) L Potassium Level 3.9 mmol/L (3.5-5.1) Chloride Level 97 mmol/L (98-107) L Carbon Dioxide Level 28 mmol/L (21-32) Anion Gap 10 (6-14) Blood Urea Nitrogen 46 mg/dL (7-20) H Creatinine 2.1 mg/dL (0.6-1.0) H Estimated GFR (Cockcroft-Gault) 22.6 Glucose Level 170 mg/dL (70-99) H Calcium Level 9.6 mg/dL (8.5-10.1) Magnesium Level 2.1 mg/dL (1.8-2.4) Troponin I Quantitative < 0.017 ng/mL (0.000-0.055) SARS-CoV-2 Antigen (Rapid) Negative (NEGATIVE) Glucose (Fingerstick) 124 mg/dL (70-99) H Laboratory Tests 06/30/20 02:25 Laboratory Tests 06/30/20 02:25 ECHOCARDIOGRAM ECHOCARDIOGRAM <Conclusion> The left ventricular systolic function is normal and the ejection fraction is within normal range. The Ejection Fraction is 55-60%. Septal motion consistent with conduction abnormality. The right ventricle is moderately dilated. Calculated aortic valve area is 1.90 cm2 with maximum pressure gradient of 32 mmHg and mean pressure gradient of 18 mmHg. Doppler and color-flow analysis revealed mild aortic stenosis. There is moderate mitral valve stenosis with a mean gradient of 7 mmHg. Doppler and Color Flow revealed mild tricuspid regurgitation with an estimated PAP of 44 mmHg. DATE: 04/11/20 1154 HEART CATH HEART CATH CORONARY ANGIOGRAPHY: LM is a large caliber vessel with a distal 50% stenosis. LAD is a large caliber with long proximal to mid 40% stenosis, patent mid stent in a very tortous segment. D1/D2 are small caliber vessels with normal angiographic appearance. LCx is a moderate caliber non-dominant vessel with proximal to mid 50-60% stenosis. OM1 is a moderate caliber vessel with normal angiographic appearance. RCA is a large caliber dominant vessel with a mid 50% stenosis. There is a patent proximal and distal stent. RPDA and RPL are moderate caliber vessels with mild luminal irregularities. INTERVENTIONAL TECHNIQUE: iFR of the LAD and RCA Due to intermediate disease in the left main LAD and circumflex as well as a mid RCA E decision was made to perform a physiologic study. Heparin was used for an to regulation. Through a 6 [place] JL4 guide catheter a 0.014 inch pressure wire was advanced to the LAD after appropriate normalization. An IFR value was within normal limits at 0.98. Subsequently, a JR4 guide catheter was used to engage the right coronary artery and an IFR value was also measured at 0.88. Final angiography of the left main LAD and RCA did not reveal any acute complications. At case completion, the sheaths were removed via manual compression after ACT was less than 180. Conclusion 1. Acute on chronic diastolic HF. LVEDP 19 mm Hg 2. Moderate pulmonary HTN, mPA - 40 mm Hg. 3. Cor pulmonale. 4. Normal cardiac output. 5. Mild aortic stenosis. 6. Severe mitral stenosis. 7. Three vessel coronary disease with patent RCA and LAD stents. 8. Mild ischemia of the RCA territory with iFR of 0.88. Negative iFR of the LM/LAD. Recommendations 1. I had a long discussion with the patient and her family regarding etiology of dyspnea. Her source of dyspnea is likely multifactorial but mitral stenosis is likely significantly contributing to her issues. 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 They will consider referral to [facility] for high risk valve intervention as needed. DATE: 05/07/19 1024 ASSESSMENT/PLAN ASSESSMENT/PLAN 1. Traumatic fall due to presyncope/SSS with possible SAH 2. SSS: noted with 6 and 7 sec pauses 3. PAFIB: presently regular junctional rhythm 50s 4. CAD with past PCI: clinically stable 5. Valvular disease: moderate MS and mild , valvular surgery due on 07/07/2020 6. HTN: mildly elevated 7. HLP 8. Possible left rib fracture Recommendations 1. Vit K and FFP given. Plan for PPM today, risks and benefits discussed and agreeable to proceed 2. Consult neurosurgery 3. Hold antiplatelets and no further anticoagulation at this time. 4. Consider noncontrast chest CT tomorrow and note any rib fractures. 5. Will restart BP meds gradually post op. RODERICK NGUYỄN MD 07/01/20 0846: CARDIAC CONSULT ASSESSMENT/PLAN ASSESSMENT/PLAN Late entry for 06/30/2020 Patient seen and examined. Agree with above nurse practitioner note. Patient has atrial fibrillation with a slow ventricular response/complete heart block with junctional escape rhythm. We will plan for pacemaker implantation. Risks and benefits discussed with the patient. HALLIE ALVARADO APRN Jun 30, 2020 14:04 RODERICK NGUYỄN MD Jul 01, 2020 08:46
[2020-06-30] MEDS ORDERED: NO ANTICOAGULANT THERAPY. MC PRN (14:30)
--- NOTE | 2020-06-30 15:04 | RAD ---
Examination: XR CHEST 1V History: Reason: Post pacemaker / Comparison/Correlation: 07/27/2015 Findings: Portable upright frontal view of the chest was obtained. Single lead left-sided pacemaker p resent. Lead overlies the expected site of the right ventricular apex. Heart size is within the upper limit of normal. No pneumothorax. Mildly congested pulmonary vasculature. No infiltrate. Patient mil dly rotated limiting assessment. Impression: Left-sided single-lead pacemaker is intact. The appears to be in place on the base of the frontal vie w provided. No pneumothorax. Mild pulmonary vascular congestion. Electronically signed by: Donnie Gates MD (06/30/2020 3:02 PM) [id number]
--- NOTE | 2020-06-30 15:26 | NUR ---
SS following for discharge planning. SS reviewed pt chart and discussed with pt RN. Pt is from home and is currently on room air. COVID19 negative. Pt had pacemaker placement today. Possible discharge to home tomorrow. SS will continue to follow for discharge planning.
[2020-06-30] MEDS: INSULIN LISPRO 300 UNITS/3 ML VIAL. SQ SCH (16:03)
--- NOTE | 2020-06-30 16:03 | NUR ---
blood glucose not checked at this time since patient just finished eating lunch
[2020-06-30] MEDS ORDERED: CLOP75TA PO (16:59)
[2020-06-30] MEDS ORDERED: FERR325T14 PO (16:59)
[2020-06-30] MEDS ORDERED: METF500T16 PO (16:59)
[2020-06-30] MEDS ORDERED: HYDR-2145 PO (16:59)
[2020-06-30] MEDS ORDERED: MAGN200T7 PO (16:59)
[2020-06-30] MEDS ORDERED: WARF4TAB64 PO (16:59)
[2020-06-30] MEDS ORDERED: CHOL500021 PO (16:59)
[2020-06-30] MEDS ORDERED: GABA300C18 PO (16:59)
[2020-06-30] MEDS ORDERED: METO25TA4 PO (16:59)
[2020-06-30] MEDS ORDERED: MONT10TA49 PO (16:59)
[2020-06-30] MEDS ORDERED: SIMV40TA18 PO (16:59)
[2020-06-30] MEDS ORDERED: CYAN50008 PO (16:59)
[2020-06-30] MEDS ORDERED: DILT180C29 PO (16:59)
[2020-06-30] MEDS ORDERED: LISI-334 PO (16:59)
--- NOTE | 2020-06-30 18:36 | CARD ---
MR#: [id number] Date of Study: 06/30/2020 Ordering Physician: RODERICK NGUYỄN, Referring Physician: RODERICK NGUYỄN, Tech: APPROVED REPORT HISTORY The Patient is a 79 year-old female with a history of atrial fibrillation with CHB and junctional esc ape rhythm , PROCEDURES Insertion Single Chamber Ventricle Pacemaker Sedation Time: 74 Minutes Fluoro Time: 6.4 Minutes Dose: 48.10 Gycm2 INDICATIONS After appropriate informed consent the patient was brought to the catheterization laboratory in the [facility] chest was prepped and draped in usual sterile fashion. Under 1% lidocaine local anesthesia a 1 inch incision was made in the infraclavicular region and usin g cautery and blunt dissection a pocket was created. Next venous access obtained in the left axillar y vein and a six Persian sheath was placed without difficulty. Next, a SpotOnWayroniHouseTrip 53 cm Solia lead wit serial #[id number] was advanced to the right ventricular apex. The patient had significant ectopy a nd sustained ventricular tachycardia in the ventricular apex apical septum and mid septum. Therefore , the lead was placed in the high septal location. The lead was tested for stability with a stylette used for stressing, deep inspiration and coughing by the patient. The lead appeared to be well seat ed. Appropriate pacing parameters were noted with a threshold of 0.9 V at 0.4 ms, impedance of 810 o hms, amplitude of 12 mV. The lead was secured to the pectoralis muscle with the suture sleeve. Next , a PWA EDora 8 SRT with serial #[id number] MRI compatible generator was attached to the RV lead . This was secured to the pectoralis fascia with nonabsorbable suture. The incision was then closed in three layers. There was significant bleeding noted due to the patient's elevated INR, D-Stat was applied prior to closure. The patient tolerated the procedure well and there were no immediate comp lications. Pressure dressing was applied and the patient was transported back to the room in stable condition. Settings: VVICLS, 60/120. Of note, the patient was initially in a accelerated junctional rhythm with likely underlying atrial f ibrillation with complete heart block. The patient has a known history of permanent atrial fibrillat ion. CONCLUSION 1. Successful implantation of a Biotronik MRI compatible single-chamber pacemaker for atrial fibrill ation with high-grade AV block and 8-second pause. Signed by : Roderick Nguyễn, Electronically Approved : 06/30/2020 18:36:08
[2020-06-30] MEDS ORDERED: MAGNESIUM OXIDE PO SCH (21:00)
[2020-06-30] MEDS: SIMVASTATIN 40 MG TABLET. PO SCH (22:03)
[2020-06-30] MEDS: FERROUS SULFATE 325 MG TABLET. PO SCH (22:03)
[2020-06-30] MEDS: GABAPENTIN 300 MG CAPSULE. PO SCH (22:03)
[2020-06-30] MEDS: CYANOCOBALAMIN (VITAMIN B-12) 1,000 MCG TABLET. PO SCH (22:04)
[2020-06-30] MEDS: MONTELUKAST SODIUM 10 MG TABLET. PO SCH (22:04)
[2020-07-01 03:43] VITALS: BP 135/44
[2020-07-01 07:00] VITALS: BP 151/49
[2020-07-01] MEDS: INSULIN LISPRO 300 UNITS/3 ML VIAL. SQ SCH ×2 (07:30→18:44)
[2020-07-01] MEDS: CHOLECALCIFEROL (VITAMIN D3) 1,000 UNIT TABLET PO SCH (08:34)
[2020-07-01] MEDS: hydroCHLOROthiazide 12.5 MG CAPSULE PO SCH (08:34)
[2020-07-01] MEDS: LISINOPRIL 20 MG TABLET PO SCH (08:34)
[2020-07-01] MEDS: MAGNESIUM OXIDE 400 MG TABLET PO SCH (08:34)
--- NOTE | 2020-07-01 09:44 | NUR ---
SS following up with discharge planning. SS reviewed pt chart and discussed with pt RN. Pt is currently on room air. COVID19 negative. Pt had pacemaker placed on 06/30/[address] today. Discharge plan is to home when medically ready. SS will continue to follow for discharge planning.
[2020-07-01 09:54] LABS: ALBUMIN 3.3 g/dL (3.4-5.0); ALBUMIN/GLOBULIN RATIO 0.8 (1.0-1.7); CALCIUM 9.4 mg/dL (8.5-10.1); CREATININE 1.3 mg/dL (0.6-1.0); GFR 39.3; MAGNESIUM 1.7 mg/dL (1.8-2.4); POTASSIUM 3.9 mmol/L (3.5-5.1); TOTAL BILIRUBIN 1.1 mg/dL (0.2-1.0); TOTAL PROTEIN 7.6 g/dL (6.4-8.2)
--- NOTE | 2020-07-01 09:56 | PDOC ---
IM PROGRESS NOTES- Subjective Subjective complaints of dyspnea,wheezing. Objective Vitals/I&O Vital Signs Date Time Temp Pulse Resp B/P (MAP) Pulse Ox O2 Delivery O2 Flow Rate FiO2 07/01/20 08:34 65 151/49 07/01/20 07:00 98.1 18 94 Room Air 98.1 07/01/20 03:43 2.0 I & O 06/30/20 06/30/20 07/01/20 15:00 23:00 07:00 Intake Total 340 ml 1520 ml 500 ml Output Total 350 ml Balance 340 ml 1170 ml 500 ml Physical Exam Physical Exam General appearance - alert,ill appearing, and in no distress and oriented to person, place, and time Mental Status - alert, oriented to person, place, and time, affect appropriate to mood Head - normal Chest -decreased breath sounds at bases Heart - S1 and S2 irregular Abdomen - soft, nontender, Neurological - alert and oriented Extremities - no pedal edema Skin - warm and dry, bruise on the left forehead Labs Laboratory Tests Test 06/30/20 12:04 06/30/20 20:57 07/01/20 06:57 Glucose (Fingerstick) 124 mg/dL (70-99) H 279 mg/dL (70-99) H 266 mg/dL (70-99) H Meds Current Medications Medications (Trade) Dose Ordered Sig/Giuseppe Route PRN Reason Start Time Stop Time Status Last Admin Dose Admin Cyanocobalamin (Vitamin B-12) 500 mcg HS PO 06/30/20 21:00 06/30/20 22:04 Ferrous Sulfate (Feosol) 325 mg HS PO 06/30/20 21:00 06/30/20 22:03 Lisinopril (Prinivil) 20 mg DAILY PO 06/30/20 11:00 07/01/20 08:34 Montelukast Sodium (Singulair) 10 mg HS PO 06/30/20 21:00 06/30/20 22:04 Simvastatin (Zocor) 40 mg QHS PO 06/30/20 21:00 06/30/20 22:03 Vitamin D (Vitamin D3) 1,000 unit DAILY PO 06/30/20 11:00 07/01/20 08:34 Gabapentin (Neurontin) 300 mg HS PO 06/30/20 21:00 06/30/20 22:03 Hydrochlorothiazide (Microzide) 12.5 mg DAILY PO 06/30/20 11:00 07/01/20 08:34 Acetaminophen (Tylenol) 650 mg PRN Q6HRS PRN PO MILD PAIN / TEMP > 100.3'F 06/30/20 10:15 06/30/20 22:45 Magnesium Oxide (Magnesium Oxide) 400 mg DAILY PO 06/30/20 11:00 07/01/20 08:34 Midazolam HCl (Versed) 3 mg 1X ONCE IV 06/30/20 13:30 06/30/20 13:40 DC 06/30/20 12:53 Fentanyl Citrate (Fentanyl 2ml Vial) 75 mcg 1X ONCE IV 06/30/20 13:30 06/30/20 13:40 DC 06/30/20 12:53 Lidocaine HCl (Lidocaine 2% 20ml Vial) 40 ml 1X ONCE IJ 06/30/20 13:30 06/30/20 13:40 DC 06/30/20 13:30 Amiodarone HCl (Cordarone) 150 mg 1X ONCE IVP 06/30/20 13:30 06/30/20 13:40 DC 06/30/20 13:30 Phytonadione (Vitamin K Ampule) 5 mg 1X ONCE SQ 06/30/20 13:45 06/30/20 13:46 DC 06/30/20 14:25 Cefazolin Sodium/ Dextrose 50 ml @ 100 mls/hr 1X ONCE IV 06/30/20 17:00 06/30/20 17:29 DC 06/30/20 16:46 Assessment Assessment 1. Closed head injury with possible subarachnoid hemorrhage on the left side. 2. Sick sinus syndrome. 3. Coronary artery disease. 4. Diabetes mellitus type 2 with neuropathy. 5. Hyperlipidemia. 6. Congestive heart failure. 7. Atrial fibrillation. 8. Severe mitral stenosis. 9. Severe aortic stenosis. 10. Pulmonary hypertension. 11. Chronic kidney disease 4. 12. Asthma. 13. Hyperlipidemia. 14. History of depression. 15. Osteoarthritis. PLAN: 1. Closed head injury Repeat CT scan does not show any evidence of hemorrhage. consult Dr. Douglas for neurosurgical evaluation and management. 2. Sick sinus syndrome and sinus pauses. June 30, 2020 1. Successful implantation of a [employer] MRI compatible single-chamber pacemaker for atrial fibrillation with high-grade AV block and 8-second pause. Consult Dr. Li for cardiology evaluation and management. A pacemaker Inserted on June 30, 2020. The patient was given vitamin K in the Emergency Room and the patient has also received fresh frozen plasma. INR is 2.1. 4. Atrial fibrillation.. Hold Coumadin and Plavix due to head injury and planned procedure. 5. Coronary artery disease. Continue present treatment. 6. Diabetes mellitus type 2. Verify home medications. Restart NPH insulin. 7. Aortic stenosis. The patient has been scheduled for TAVR at [facility] towards the end of the month. 8. Severe mitral stenosis. Continue to monitor. Recheck labs in a.m. 9. Asthma exacerbation Start albuterol and budesonide treatment. Patient is on Symbicort at home. INR is 1.8 today. Other labs are pending. Plan Plan For more details regarding further plans, please refer to the orders. Justifications for Admission Other Justification ELISABETH AYON MD Jul 01, 2020 09:56
[2020-07-01] MEDS: INSULIN GLARGINE SYRINGE. SQ SCH (10:30)
[2020-07-01 10:56] VITALS: BP 165/55
--- NOTE | 2020-07-01 11:14 | RAD ---
Examination: CT THORAX WO History: fall and continued pain s/p pacemaker placement / Comparison/Correlation: 06/30/2020 portable chest x-ray exam 12/26/2015 2 view chest x-ray Findings: Axial images of the chest were obtained without contrast. Sagittal and coronal reformatted images were provided. Single lead left-sided pacemaker is present. Lead terminates within the right ventricular apex region . Edema or small hematoma subjacent to the pacemaker measuring 2 cm by 1 cm is present. Edematous lenny earance of the left upper pectoralis major muscle is present. Minimal gas superficial to the left pec toralis major muscle and about the pacemaker noted consistent with recent placement. Marked coronary arterial calcification is present diffusely. Mitral annular calcification is notable. No enlarged tho racic lymph nodes. Small bilateral pleural effusions are present slightly greater on the left. Mild bibasilar adjacent a telectasis. Groundglass infiltrate and/or atelectasis involving the left upper lobe adjacent to major fissure is present. Infiltrate involving the right lower lobe superior segment is noted. Calcificati on of the tracheobronchial tree morris noted. No pneumothorax. Multiple old left rib fractures with callus formation are present. Left fourth, fifth, sixth rib frac tures noted with callus formation. Left seventh rib fracture anteriorly is suspected as well. T6 vert ebral body compression deformity with height loss of 25 percent to 50 percent is present at the super ior endplate Small hiatal hernia suggested. Impression: Bilateral pleural effusions and adjacent atelectasis. Bilateral groundglass infiltrates of the upper lung cotter. Left-sided rib fractures are present with callus formation. No acute fracture delineated. T6 vertebral compression deformity of indeterminate age is evident. This finding is new since previou s chest x-ray exam 12/26/2015. Findings consistent with recent pacemaker placement. Marked coronary arterial calcification. Small hiatal hernia. PQRS Compliance Statement: One or more of the following individualized dose reduction techniques were utilized for this examinat ion: 1. Automated exposure control 2. Adjustment of the mA and/or kV according to patient size 3. Use of iterative reconstruction technique Electronically signed by: Donnie Gates MD (07/01/2020 11:12 AM) [id number]
[2020-07-01] MEDS: ALBUTEROL SULFATE 2.5 MG/3 ML NEBU. NEB SCH ×3 (11:49→20:05)
[2020-07-01] MEDS ORDERED: MAGNESIUM OXIDE 400 MG TABLET PO ONE (12:30)
[2020-07-01] MEDS ORDERED: FUROSEMIDE 40 MG TABLET. PO ONE (12:30)
--- NOTE | 2020-07-01 12:38 | PDOC ---
HALLIE ALVARADO COMPENSATOR 07/01/20 1238: CARDIO Progress Notes Date and Time Date of Service 07/01/2020 Time of Evaluation 1050 Subjective Subjective: No Chest Pain, No shortness of breath, No Palpitations Vitals Vitals Vital Signs Date Time Temp Pulse Resp B/P (MAP) Pulse Ox O2 Delivery O2 Flow Rate FiO2 07/01/20 11:50 94 Nasal Cannula 3.0 07/01/20 10:56 98.3 65 22 165/55 (91) 98.3 Weight Weight [ ] Input and Output Intake and Output Intake and Output 07/01/20 07:00 Intake Total 2360 ml Output Total 350 ml Balance 2010 ml Intake Oral 1060 ml IV Total 350 ml Blood Product 600 ml Blood Product IV Normal Saline Flush 350 ml Output Urine Total 350 ml # Voids 5 Laboratory Labs Laboratory Tests Test 06/30/20 20:57 07/01/20 06:57 07/01/20 08:25 07/01/20 11:18 Glucose (Fingerstick) 279 mg/dL (70-99) 266 mg/dL (70-99) 329 mg/dL (70-99) Sodium Level 135 mmol/L (136-145) Potassium Level 3.9 mmol/L (3.5-5.1) Chloride Level 95 mmol/L (98-107) Carbon Dioxide Level 27 mmol/L (21-32) Anion Gap 13 (6-14) Blood Urea Nitrogen 27 mg/dL (7-20) Creatinine 1.3 mg/dL (0.6-1.0) Estimated GFR (Cockcroft-Gault) 39.3 BUN/Creatinine Ratio 21 (6-20) Glucose Level 284 mg/dL (70-99) Calcium Level 9.4 mg/dL (8.5-10.1) Magnesium Level 1.7 mg/dL (1.8-2.4) Total Bilirubin 1.1 mg/dL (0.2-1.0) Aspartate Amino Transf (AST/SGOT) 16 U/L (15-37) Alanine Aminotransferase (ALT/SGPT) 14 U/L (14-59) Alkaline Phosphatase 88 U/L (46-116) Total Protein 7.6 g/dL (6.4-8.2) Albumin 3.3 g/dL (3.4-5.0) Albumin/Globulin Ratio 0.8 (1.0-1.7) Physical Exam HEENT: Neck Supple W Full Motion Chest: Symmetric LUNGS: Other (diminished bases) Heart: RRR (junctional) Abdomen: Soft N/T, Other (obese) Extremities: No Calf Tenderness Neurology: alert, oriented, follow commands Other Exams Left chest incision intact with steristrips no significant oozing. Assessment Assessment 1. Traumatic fall due to presyncope/SSS with possible SAH, neg on repeat CT 2. SSS: noted with 6 and 7 sec pauses S/P PPM biotronik, no complications 3. PAFIB: junctional rhythm currently 60s 4. CAD with past PCI: clinically stable 5. Valvular disease: moderate MS and mild , valvular surgery due on 07/07/2020 6. HTN: mildly elevated 7. HLP 8. Possible new 7th left anterior rib fracture otherwise with multiple healed left rib fractures Recommendations 1. Repeat interrogation of PPM revealed normal functioning device. Follow up in office in 2 weeks for wound check 2. No coumadin or plavix. Baby ASA when ok with neurosurgery 3. Lasix x1 today. Replace Mg. Continue secondary prevention measures. 4. INR today. PT/OT eval and treat. 5. Continue lisinopril. She is on cardizem and metoprolol at home. Will restart low dose metoprolol and note BP trend. 6. Prefer HH otherwise wound check in Jul 20 at 1000AM Justicifation of Admission Dx: Justifications for Admission: Justification of Admission Dx: Yes RODERICK NGUYỄN MD 07/02/20 1028: CARDIO Progress Notes Plan Plan Late entry for 07/01/2020 Pt. seen and examined. Agree with above FORESTRY HUNTER note. Mild left sided pacer hematoma. Well functioning device on check today. She has decompensated diastolic HF Continue diuresis. PT/OT. Discussed case with [facility]. HALLIE ALVARADO APRN Jul 01, 2020 12:38 RODERICK NGUYỄN MD Jul 02, 2020 10:28
[2020-07-01] MEDS ORDERED: FUROSEMIDE 40 MG/4 ML VIAL. IVP ONE (13:30)
[2020-07-01] MEDS: METOPROLOL TART IMMED RELEASE 25 MG TABLET. PO SCH ×2 (13:55→22:03)
[2020-07-01 15:00] VITALS: BP 142/47
[2020-07-01 17:16] LABS: BASO # 0.1 x10^3/uL (0.0-0.2); BASO % 1 % (0-3); EOS % 0 % (0-3); HEMATOCRIT 40.2 % (36.0-47.0); HEMOGLOBIN 12.9 g/dL (12.0-15.5); LYMPH # 1.2 x10^3/uL (1.0-4.8); LYMPH % 10 % (24-48); MEAN CORPUSCULAR HEMOGLOBIN 27 pg (25-35); MEAN CORPUSCULAR HGB CONC 32 g/dL (31-37); MEAN CORPUSCULAR VOLUME 84 fL (79-100); MONO % 8 % (0-9); NEUT # 9.8 x10^3/uL (1.8-7.7); NEUT % 81 % (31-73); PLATELET COUNT 298 x10^3/uL (140-400); RED BLOOD COUNT 4.76 x10^6/uL (3.50-5.40); RED CELL DISTRIBUTION WIDTH 16.8 % (11.5-14.5); WHITE BLOOD COUNT 12.2 x10^3/uL (4.0-11.0)
[2020-07-01 17:28] LABS: PROTHROMBIN TIME PATIENT 14.5 SEC (11.7-14.0)
[2020-07-01 19:00] VITALS: BP 137/54
[2020-07-01] MEDS: BUDESONIDE 0.5 MG/2 ML NEBU. NEB SCH (20:06)
[2020-07-01] MEDS: SIMVASTATIN 40 MG TABLET. PO SCH (22:02)
[2020-07-01] MEDS: CYANOCOBALAMIN (VITAMIN B-12) 1,000 MCG TABLET. PO SCH (22:02)
[2020-07-01] MEDS: MONTELUKAST SODIUM 10 MG TABLET. PO SCH (22:02)
[2020-07-01] MEDS: FERROUS SULFATE 325 MG TABLET. PO SCH (22:02)
[2020-07-01] MEDS: GABAPENTIN 300 MG CAPSULE. PO SCH (22:02)
[2020-07-01 23:15] VITALS: BP 122/51
[2020-07-02 03:05] VITALS: BP 108/49
[2020-07-02 07:00] VITALS: BP 124/48
[2020-07-02] MEDS: ALBUTEROL SULFATE 2.5 MG/3 ML NEBU. NEB SCH ×4 (07:59→20:00)
[2020-07-02] MEDS: BUDESONIDE 0.5 MG/2 ML NEBU. NEB SCH ×2 (07:59→20:00)
[2020-07-02] MEDS: hydroCHLOROthiazide 12.5 MG CAPSULE PO SCH (08:47)
[2020-07-02] MEDS: MAGNESIUM OXIDE 400 MG TABLET PO SCH (08:47)
[2020-07-02] MEDS: LISINOPRIL 20 MG TABLET PO SCH (08:48)
[2020-07-02] MEDS: CHOLECALCIFEROL (VITAMIN D3) 1,000 UNIT TABLET PO SCH (08:48)
[2020-07-02] MEDS: METOPROLOL TART IMMED RELEASE 25 MG TABLET. PO SCH ×2 (08:48→21:19)
[2020-07-02] MEDS: INSULIN GLARGINE SYRINGE. SQ SCH (08:57)
[2020-07-02] MEDS: INSULIN LISPRO 300 UNITS/3 ML VIAL. SQ SCH ×2 (08:58→16:49)
--- NOTE | 2020-07-02 10:09 | RAD ---
XR CHEST 1V Clinical indications: Post pacemaker implantation. Comparison: June 30, 2020. Findings: A unipolar right ventricular pacemaker has been placed via a left subclavian approach. No p neumothorax is seen. Small bilateral pleural effusions are now evident. There is mild bilateral perih ilar interstitial pulmonary edema which has improved. Cardiomegaly is seen which is stable. Mediastin um and pulmonary vasculature are unchanged. Impression: Improvement of bilateral perihilar interstitial pulmonary edema. New small bilateral pleu ral effusions. There is nonvisualization of the left common diaphragm today which may be related to t he left pleural effusion and associated compressive atelectasis but a left lung base consolidative in filtrate is certainly possible. There is a new small consolidative infiltrate within the right lung b ase. This could represent some atelectasis related to the new right-sided pleural effusion but a deve loping infiltrate is possible here as well. Placement of pacemaker without pneumothorax. Electronically signed by: Darci Quezada MD (07/02/2020 10:06 AM) [id number]
[2020-07-02 10:41] VITALS: BP 100/61
[2020-07-02 11:03] LABS: ALBUMIN 2.7 g/dL (3.4-5.0); ALBUMIN/GLOBULIN RATIO 0.7 (1.0-1.7); CALCIUM 9.2 mg/dL (8.5-10.1); CREATININE 1.5 mg/dL (0.6-1.0); GFR 33.3; POTASSIUM 4.1 mmol/L (3.5-5.1); TOTAL BILIRUBIN 0.9 mg/dL (0.2-1.0); TOTAL PROTEIN 6.7 g/dL (6.4-8.2)
--- NOTE | 2020-07-02 11:21 | PDOC ---
PROGRESS NOTES Date of Service: DATE: 07/02/20 TIME: 11:17 Subjective Subjective feels ok , sitting in chair Objective Objective Vital Signs Date Time Temp Pulse Resp B/P (MAP) Pulse Ox O2 Delivery O2 Flow Rate FiO2 07/02/20 10:41 97.8 63 21 100/61 (74) 98 Nasal Cannula 3.0 97.8 Intake and Output 07/02/20 07:00 Intake Total 1080 ml Output Total 500 ml Balance 580 ml Intake Oral 1080 ml Output Urine Total 500 ml # Voids 3 Physical Exam Heart: Regular rate (junctional), Other (4/6 systolic murmur to HARMONY border) Extremities: No cyanosis, No edema General: Alert, Oriented X3, Cooperative, No acute distress HEENT: Atraumatic, Mucous membr. moist/pink Lungs: Clear to auscultation, Normal air movement MUSCULOSKELETAL: Osteoarthritic changes both hands Neuro: Normal speech, Sensation intact Psych/Mental Status: Mental status NL, Mood NL Skin: No rashes Diagnosis Problem List Problems Medical Problems: (1) CAESAR (acute kidney injury) Status: Acute (2) Sick sinus syndrome Status: Acute (3) Subarachnoid hemorrhage Status: Acute Assessment Assessment 1. Closed head injury .No intra cranial bleed 2. Sick sinus syndrome. 3. Coronary artery disease. 4. Diabetes mellitus type 2 with neuropathy. 5. Hyperlipidemia. 6. Congestive heart failure. 7. Atrial fibrillation. 8. Severe mitral stenosis. 9. Severe aortic stenosis. 10. Pulmonary hypertension. 11. Chronic kidney disease 4. 12. Asthma. 13. Hyperlipidemia. 14. History of depression. 15. Osteoarthritis. PLAN: 1. Closed head injury Repeat CT scan does not show any evidence of hemorrhage. 2. Sick sinus syndrome and sinus pauses. June 30, 2020 1. Successful implantation of a Biotronik MRI compatible single-chamber pacemaker for atrial fibrillation with high-grade AV block and 8-second pause. 3.Atrial fibrillation.. Hold Coumadin and Plavix due to head injury and planned procedure.Cardiology to decide to restart or not. 4.PT/OT 5. BS 200-250 ,resume metformin Plan Plan of Care Problems Medical Problems: (1) CAESAR (acute kidney injury) Status: Acute (2) Sick sinus syndrome Status: Acute (3) Subarachnoid hemorrhage Status: Acute Comment Review of Relevant I have reviewed the following items gina (where applicable) has been applied. Labs Laboratory Tests Test 07/01/20 11:18 07/01/20 16:25 07/02/20 07:03 07/02/20 07:45 Glucose (Fingerstick) 329 mg/dL (70-99) 280 mg/dL (70-99) 231 mg/dL (70-99) Sodium Level 135 mmol/L (136-145) Potassium Level 4.1 mmol/L (3.5-5.1) Chloride Level 96 mmol/L (98-107) Carbon Dioxide Level 30 mmol/L (21-32) Anion Gap 9 (6-14) Blood Urea Nitrogen 34 mg/dL (7-20) Creatinine 1.5 mg/dL (0.6-1.0) Estimated GFR (Cockcroft-Gault) 33.3 BUN/Creatinine Ratio 23 (6-20) Glucose Level 195 mg/dL (70-99) Calcium Level 9.2 mg/dL (8.5-10.1) Total Bilirubin 0.9 mg/dL (0.2-1.0) Aspartate Amino Transf (AST/SGOT) 15 U/L (15-37) Alanine Aminotransferase (ALT/SGPT) 13 U/L (14-59) Alkaline Phosphatase 73 U/L (46-116) Total Protein 6.7 g/dL (6.4-8.2) Albumin 2.7 g/dL (3.4-5.0) Albumin/Globulin Ratio 0.7 (1.0-1.7) Medications Current Medications Albuterol Sulfate (Ventolin Neb Soln) 2.5 mg RTQID NEB Last administered on 07/01/20at 20:05; Start 07/01/20 at 12:00; Stop 07/08/20 at 11:59 Budesonide (Pulmicort) 0.5 mg RTBID NEB Last administered on 07/01/20at 20:06; Start 07/01/20 at 20:00 Clopidogrel Bisulfate (Plavix) 75 mg DAILY PO ; Start 07/02/20 at 12:00 Furosemide (Lasix) 40 mg 1X ONCE IVP Last administered on 07/01/20at 13:56; Start 07/01/20 at 13:30; Stop 07/01/20 at 13:31; Status DC Furosemide (Lasix) 40 mg 1X ONCE PO Last administered on 07/01/20at 12:30; Start 07/01/20 at 12:30; Stop 07/01/20 at 12:36; Status DC Magnesium Oxide (Magnesium Oxide) 400 mg 1X ONCE PO Last administered on 07/01/20at 13:57; Start 07/01/20 at 12:30; Stop 07/01/20 at 12:36; Status DC Metformin HCl (Glucophage) 500 mg BIDWMEALS PO ; Start 07/02/20 at 17:00 Metoprolol Tartrate (Lopressor) 25 mg BID PO Last administered on 07/02/20at 08:48; Start 07/01/20 at 13:00 Warfarin Sodium (Coumadin Per Physician) 1 each PRN DAILY PRN MC SEE COMMENTS; Start 07/02/20 at 11:00 Warfarin Sodium (Coumadin) 4 mg DAILY PO ; Start 07/02/20 at 16:00 Vitals/I & O Vital Sign - Last 24 Hours 07/01/20 07/01/20 07/01/20 07/01/20 11:50 13:55 15:00 16:50 Temp 98.2 98.2 Pulse 65 63 Resp 20 B/P (MAP) 165/55 142/47 (78) Pulse Ox 94 93 95 O2 Delivery Nasal Cannula Room Air Nasal Cannula O2 Flow Rate 3.0 3.0 07/01/20 07/01/20 07/01/20 07/01/20 19:00 20:00 20:10 22:03 Temp 97.6 97.6 Pulse 63 63 Resp 22 B/P (MAP) 137/54 (81) 137/54 Pulse Ox 98 98 O2 Delivery Nasal Cannula Nasal Cannula Nasal Cannula O2 Flow Rate 3.0 2.0 3.0 07/01/20 07/02/20 07/02/20 07/02/20 23:15 03:05 07:00 08:48 Temp 97.4 97.7 98.0 97.4 97.7 98.0 Pulse 62 62 63 63 Resp 20 21 23 B/P (MAP) 122/51 (74) 108/49 (68) 124/48 (73) 124/48 Pulse Ox 97 95 96 O2 Delivery Nasal Cannula Nasal Cannula Nasal Cannula O2 Flow Rate 3.0 3.0 3.0 07/02/20 07/02/20 08:48 10:41 Temp 97.8 97.8 Pulse 63 63 Resp 21 B/P (MAP) 124/48 100/61 (74) Pulse Ox 98 O2 Delivery Nasal Cannula O2 Flow Rate 3.0 Intake and Output 07/01/20 07/01/20 07/02/20 15:00 23:00 07:00 Intake Total 600 ml 480 ml 0 ml Output Total 500 ml Balance 600 ml 480 ml -500 ml Justifications for Admission Other Justification NOEMY BOJORQUEZ MD Jul 02, 2020 11:21
[2020-07-02] MEDS ORDERED: CLOPIDOGREL BISULFATE 75 MG TABLET PO SCH (12:00)
--- NOTE | 2020-07-02 12:17 | NUR ---
Cardiology stated to not restart Plavix and Coumadin and to restart ASA once Neurosurgery says it is okay. Primary doctor had restarted them and stated to disregard if Cardiology does not want them started. As per order both medications were discontinued from the e[facility]
--- NOTE | 2020-07-02 13:15 | PDOC ---
CARDIOLOGY PROGRESS NOTE SUBJECTIVE: No new CV events. Denies any chest pain. SOA is improved. OBJECTIVE: Vital Signs/I&O: Vital Signs Date Time Temp Pulse Resp B/P (MAP) Pulse Ox O2 Delivery O2 Flow Rate FiO2 07/02/20 12:00 98 Nasal Cannula 3.0 07/02/20 10:41 97.8 63 21 100/61 (74) 97.8 I & O 07/01/20 07/01/20 07/02/20 15:00 23:00 07:00 Intake Total 600 ml 480 ml 0 ml Output Total 500 ml Balance 600 ml 480 ml -500 ml Objective: Left sided pacer site is c/d/i. Small areas of ecchymosis w/o significant hematoma. Trace LE edema. Lungs clr. Regular heart tones. CURRENT MEDICATIONS: Metoprolol 25mg p.o bid. Simvastatin Lisinopril 20mg daily DIAGNOSTIC TESTING: Labs reviewed. Cr 1.5 ASSESSMENT: 1. Permanent atrial fibrillation with high grade AVB 2. s/p single chamber pacemaker for syncope with neurologic trauma and 8 second pause. 3. Underlying junctional tachycardia versus paced rhythm 4. HTN 5. CKD 6. Moderate to severe aortic stenosis. 7. Moderate to severe mitral stenosis. PLAN: 1. Will start ASA 81mg daily, stop coumadin and aSA given her recent head trauma, gait instability and plans for upcoming tavr in the next 10 days. No reason to start and stop coumadin at this time. 2. Continue present meds otherwise. 3. Change to oral lasix daily. Will follow along. Anticipate DC tomorrow. Thanks Justicifation of Admission Dx: Justifications for Admission: Justification of Admission Dx: Yes RODERICK NGUYỄN MD Jul 02, 2020 13:15
[2020-07-02 14:39] LABS: BASO % 0 % (0-3); EOS # 0.1 x10^3/uL (0.0-0.7); EOS % 1 % (0-3); HEMATOCRIT 35.1 % (36.0-47.0); HEMOGLOBIN 11.5 g/dL (12.0-15.5); LYMPH # 1.2 x10^3/uL (1.0-4.8); LYMPH % 14 % (24-48); MEAN CORPUSCULAR HEMOGLOBIN 28 pg (25-35); MEAN CORPUSCULAR HGB CONC 33 g/dL (31-37); MEAN CORPUSCULAR VOLUME 84 fL (79-100); MONO # 0.9 x10^3/uL (0.0-1.1); MONO % 11 % (0-9); NEUT # 6.4 x10^3/uL (1.8-7.7); NEUT % 74 % (31-73); PLATELET COUNT 260 x10^3/uL (140-400); RED BLOOD COUNT 4.18 x10^6/uL (3.50-5.40); RED CELL DISTRIBUTION WIDTH 16.8 % (11.5-14.5); WHITE BLOOD COUNT 8.7 x10^3/uL (4.0-11.0)
[2020-07-02 14:44] VITALS: BP 146/48
[2020-07-02 14:48] LABS: PROTHROMBIN TIME PATIENT 13.7 SEC (11.7-14.0)
[2020-07-02] MEDS: ASPIRIN ENTERIC COATED 81 MG TABLET.DR. PO SCH (14:49)
[2020-07-02] MEDS ORDERED: WARFARIN 4 MG TABLET. PO SCH (16:00)
[2020-07-02] MEDS: metFORMIN 500 MG TABLET PO SCH (16:47)
[2020-07-02 18:46] VITALS: BP 150/55
[2020-07-02] MEDS: GABAPENTIN 300 MG CAPSULE. PO SCH (21:00)
[2020-07-02] MEDS: CYANOCOBALAMIN (VITAMIN B-12) 1,000 MCG TABLET. PO SCH (21:18)
[2020-07-02] MEDS: MONTELUKAST SODIUM 10 MG TABLET. PO SCH (21:18)
[2020-07-02] MEDS: SIMVASTATIN 40 MG TABLET. PO SCH (21:19)
[2020-07-02] MEDS: FERROUS SULFATE 325 MG TABLET. PO SCH (21:19)
[2020-07-02 23:08] VITALS: BP 147/45
[2020-07-03 03:40] VITALS: BP 122/50
[2020-07-03] MEDS: ALBUTEROL SULFATE 2.5 MG/3 ML NEBU. NEB SCH (07:28)
[2020-07-03] MEDS: BUDESONIDE 0.5 MG/2 ML NEBU. NEB SCH (07:28)
[2020-07-03 07:34] LABS: ALBUMIN 2.5 g/dL (3.4-5.0); ALBUMIN/GLOBULIN RATIO 0.6 (1.0-1.7); CALCIUM 8.6 mg/dL (8.5-10.1); CREATININE 1.8 mg/dL (0.6-1.0); POTASSIUM 4.3 mmol/L (3.5-5.1); TOTAL BILIRUBIN 0.6 mg/dL (0.2-1.0); TOTAL PROTEIN 6.5 g/dL (6.4-8.2)
[2020-07-03 07:54] VITALS: BP 141/47
[2020-07-03] MEDS: MAGNESIUM OXIDE 400 MG TABLET PO SCH (08:58)
[2020-07-03] MEDS: CHOLECALCIFEROL (VITAMIN D3) 1,000 UNIT TABLET PO SCH (08:58)
[2020-07-03] MEDS: hydroCHLOROthiazide 12.5 MG CAPSULE PO SCH (08:58)
[2020-07-03] MEDS: LISINOPRIL 20 MG TABLET PO SCH (08:59)
[2020-07-03] MEDS: ASPIRIN ENTERIC COATED 81 MG TABLET.DR. PO SCH (08:59)
[2020-07-03] MEDS: metFORMIN 500 MG TABLET PO SCH (08:59)
[2020-07-03] MEDS: METOPROLOL TART IMMED RELEASE 25 MG TABLET. PO SCH (09:00)
[2020-07-03] MEDS: INSULIN GLARGINE SYRINGE. SQ SCH (09:07)
[2020-07-03] MEDS: INSULIN LISPRO 300 UNITS/3 ML VIAL. SQ SCH (09:08)
[2020-07-03] MEDS ORDERED: ASPI-886 PO (09:25)
[2020-07-03] MEDS ORDERED: NPH,100V SQ (09:25)
[2020-07-03] MEDS ORDERED: ACET325T9 PO (09:25)
--- NOTE | 2020-07-03 09:30 | SNU/HH DC ---
DISCHARGE WITH HOME HEALTH DISCHARGE INFORMATION: Final Diagnosis: Problems Medical Problems: (1) CAESAR (acute kidney injury) Status: Acute (2) Sick sinus syndrome Status: Acute (3) Subarachnoid hemorrhage Status: Acute Condition on Discharge: Stable HOME HEALTH: Face to Face: I certify this patient is under my care and that I, or a nurse practitioner or physician's apartment community assistant manager working with me, had a face to face encounter that meets the physician face to face encounter requirements with this patient on July 03, 2020. Medical Complications: Falls RN For Eval/Treatment: Yes Physical Therapy For: Evalulation/Treatment Occupational Therapy For: Evaluation/Treatment Pt Meets Homebound Status: Fatigue w/ amb. POST DISCHARGE ORDERS: Activity Instructions for Disc: Activity as tolerated Weight Bearing Status after Di: No restrictions DIET AFTER DISCHARGE: ADA (Cardiac) Wound/Incision Care: Keep wound/cast CDI CHECKS AFTER DISCHARGE: Checks after discharge: Check blood press - daily, Check blood sugar, ac/hs, Weigh Yourself Daily FOLLOW-UP: PCP to follow Home Health: Yes Follow up with: Dr. Ana Ayon in 5 days. Follow Up With: [facility] TREATMENT/EQUIPMENT ORDERS: Adaptive Equipment Issued: Cane CERTIFICATION STATEMENT: Certification Statement: Certification Statement: Based on the above finding, I certify that this patient is confined to the home and needs intermittent halfway care, physical therapy and/or speech therapy, or continues to need occupational therapy.~ This patient is under my care, and I have initiated the establishment of the plan of care.~ This patient will be followed by myself or a community physician who will periodically review the plan of care. Home Meds Active Scripts Budesonide/Formoterol Fumarate (SYMBICORT 160-4.5 MCG INHALER) 10.2 Gm Hfa.aer.ad, 2 PUFF IH BID for asthma, #10.6 GM 3 Refills Prov:ANA AYON MD 07/03/20 Acetaminophen (TYLENOL) 325 Mg Tablet, 650 MG PO PRN Q6HRS PRN for MILD PAIN / T EMP > 100.3'F, #30 TAB Prov:ANA AYON MD 07/03/20 Aspirin (ASPIRIN EC) 81 Mg Tablet., 81 MG PO DAILYWBKFT for CAD for 30 Days, #30 TAB.SR Prov:ANA AYON MD 07/03/20 Nph, Human Insulin Isophane (HUMULIN N) 100 Unit/1 Ml Vial, 35 UNIT SQ DAILY10 for CONTROL BLOOD SUGAR for 30 Days, #1 VIAL 1 Refill Prov:GABOANA MD 07/03/20 Reported Medications Hydrochlorothiazide (HYDROCHLOROTHIAZIDE TABLET ) 25 Mg Tablet, 25 MG PO D AILY for DIURETIC, TAB 0 Refills 06/30/20 Metformin Hcl (METFORMIN HCL) 500 Mg Tablet, 500 MG PO BIDWMEALS for ANTI- DIABETIC, TAB 0 Refills 06/30/20 Metoprolol Tartrate (METOPROLOL TARTRATE) 25 Mg Tablet, 1 TAB PO BID for blood pressure, #180 TAB 1 Refill 06/30/20 Gabapentin (GABAPENTIN) 600 Mg Tablet, 300 MG PO HS for NEUROGENIC PAIN, TAB 04/15/19 Cyanocobalamin (Vitamin B-12) (VITAMIN B-12) 1,000 Mcg Tablet, 0.5 TAB PO HS for SUPPLEMENT, #30 TAB 2 Refills 02/13/16 Montelukast Sodium (SINGULAIR TABLET ) 10 Mg Tablet, 1 TAB PO HS for CONTROL ALLERGIES, #90 TAB 1 Refill 02/13/16 Magnesium Oxide (MAG-OXIDE) 400 Mg Tablet, 1 TAB PO HS for SUPPLEMENT, #60 TAB 5 Refills 02/13/16 Ferrous Sulfate (FERROUS SULFATE) 325 Mg Tablet, 325 MG PO HS for supplement 12/15/15 Simvastatin (SIMVASTATIN) 40 Mg Tablet, 1 TAB PO QHS, #30 TAB 5 Refills 02/26/15 Lisinopril (LISINOPRIL) 20 Mg Tablet, 1 TAB PO DAILY, #30 TAB 5 Refills 02/26/15 Cholecalciferol (Vitamin D3) (VITAMIN D) 1,000 Unit Capsule, 1 CAP PO DAILY, #30 CAP 3 Refills 02/26/15 Discontinued Reported Medications Diltiazem Hcl (DILTIAZEM 24HR CD) 180 Mg Cap.er.24h, 180 MG PO DAILY for heart, CAP.SR 06/30/20 Clopidogrel Bisulfate (CLOPIDOGREL) 75 Mg Tablet, 1 TAB PO DAILY for blood thinner, #90 TAB 1 Refill 06/30/20 Gabapentin (GABAPENTIN) 300 Mg Capsule, 300 MG PO DAILY for NEUROGENIC PAIN, #3 CAP 06/30/20 Warfarin Sodium (WARFARIN SODIUM) 4 Mg Tablet, 4 MG PO DAILY for blood thinner, #30 TAB 06/30/20 Lisinopril (LISINOPRIL) 20 Mg Tablet, 1 TAB PO DAILY for blood pressure, #30 TAB 5 Refills 06/30/20 Magnesium Oxide (Mag-Oxide) 200 Mg Tablet, 400 MG PO BID for magnesium, TAB 06/30/20 Cyanocobalamin (Vitamin B-12) (Vitamin B12) 5,000 Mcg Tab.rapdis, 1 TAB PO DAILY for vitamin for 30 Days, #30 TAB 0 Refills 06/30/20 Montelukast Sodium (MONTELUKAST SODIUM TABLET ) 10 Mg Tablet, 10 MG PO HS for FOR ASTHMA, TAB 0 Refills 06/30/20 Cholecalciferol (Vitamin D3) (D3-50) 50,000 Unit Capsule, 1000 INTLU PO DAILY for replacement, CAP 06/30/20 Simvastatin (SIMVASTATIN) 40 Mg Tablet, 40 MG PO DAILY for FOR CHOLESTEROL, #30 TAB 0 Refills 06/30/20 Ferrous Sulfate (FERROUS SULFATE) 325 Mg Tablet, 325 MG PO BID for iron, TAB 06/30/20 Warfarin Sodium (WARFARIN SODIUM) 4 Mg Tablet, 0.5 TAB PO HS for BLOOD THINNER, #90 TAB 1 Refill 12/25/16 Metoprolol Tartrate (METOPROLOL TARTRATE) 25 Mg Tablet, 25 MG PO BID for TREAT HYYPERTENSION, #60 TAB 0 Refills 02/27/16 Diltiazem Hcl (CARTIA XT) 180 Mg Cap.er.24h, 180 MG PO HS for BLOODPRESSURE CONTROL 02/13/16 Metformin Hcl (METFORMIN HCL) 500 Mg Tablet, 1 TAB PO BID for Diabetes, #60 TAB 3 Refills resume metformin wednesday 05/09 am 02/13/16 Hydrochlorothiazide (HYDROCHLOROTHIAZIDE TABLET) 50 Mg Tablet, 0.25 TAB PO DAILY for blood pressure, #30 TAB 5 Refills 02/26/15 Nph, Human Insulin Isophane (HUMULIN N) 100 Unit/1 Ml Vial, 5 UNIT SQ HS for CONTROL BLOOD SUGAR, VIAL 02/26/15 Discontinued Scripts Clopidogrel Bisulfate (CLOPIDOGREL) 75 Mg Tablet, 1 TAB PO DAILY, #90 TAB 1 Refill Prov:HALLIE ALVARADO APRN 02/14/16 ANA AYON MD Jul 03, 2020 09:30
--- NOTE | 2020-07-03 09:36 | PDOC3 ---
IM DISCHARGE SUMMARY Date of Admission Date of Admission Date of Admission: Jun 30, 2020 at 03:48 Date of Discharge Date of Discharge July 03, 2020 Primary Diagnosis Primary Diagnosis 1. Closed head injury with possible subarachnoid hemorrhage on the left side. 2. Sick sinus syndrome. 3. Coronary artery disease. 4. Diabetes mellitus type 2 with neuropathy. 5. Hyperlipidemia. 6. Congestive heart failure. 7. Atrial fibrillation. 8. Severe mitral stenosis. 9. Severe aortic stenosis. 10. Pulmonary hypertension. 11. Chronic kidney disease 4. 12. Asthma. 13. Hyperlipidemia. 14. History of depression. 15. Osteoarthritis. Consults Consults Carroll Li MD; Travis Douglas MD Procedures Procedures June 30, 2020 Successful implantation of a Biotronik MRI compatible single-chamber pacemaker for atrial fibrillation with high-grade AV block and 8-second pause. Labs Labs Laboratory Tests Test 07/02/20 11:28 07/02/20 16:42 07/02/20 21:15 07/03/20 06:09 Glucose (Fingerstick) 303 mg/dL (70-99) H 303 mg/dL (70-99) H 233 mg/dL (70-99) H Sodium Level 131 mmol/L (136-145) L Potassium Level 4.3 mmol/L (3.5-5.1) Chloride Level 94 mmol/L (98-107) L Carbon Dioxide Level 29 mmol/L (21-32) Anion Gap 8 (6-14) Blood Urea Nitrogen 41 mg/dL (7-20) H Creatinine 1.8 mg/dL (0.6-1.0) H Estimated GFR (Cockcroft-Gault) 27.0 BUN/Creatinine Ratio 23 (6-20) H Glucose Level 264 mg/dL (70-99) H Calcium Level 8.6 mg/dL (8.5-10.1) Total Bilirubin 0.6 mg/dL (0.2-1.0) Aspartate Amino Transferase (AST) 14 U/L (15-37) L Alanine Aminotransferase (ALT) 9 U/L (14-59) L Alkaline Phosphatase 72 U/L (46-116) Total Protein 6.5 g/dL (6.4-8.2) Albumin 2.5 g/dL (3.4-5.0) L Albumin/Globulin Ratio 0.6 (1.0-1.7) L Test 07/03/20 07:39 Glucose (Fingerstick) 251 mg/dL (70-99) H Laboratory Tests 07/03/20 06:09 Brief hospital course Brief hospital course This 79-year-old female who has a history of atrial fibrillation, severe mitral stenosis, severe aortic stenosis, pulmonary hypertension, diabetes mellitus type 2, congestive heart failure, peripheral artery disease and multiple other medical problems, was having episodes of lightheadedness recently. She is scheduled for a TAVR procedure towards the end of the month at [facility] for aortic stenosis. She suddenly became lightheaded last night and fell. She did not pass out. She hit the left side of her head and she is on Coumadin. Because of that, she came to the Emergency Room. In the Emergency Room, she was noted to have an 8-second sinus pause. This was also followed later by a 5-second sinus pause. CT scan of head revealed a couple of punctate foci of high density including within the right temporal region as well as right cerebral hemisphere near the vertex. This is a very mild finding, but given the patient's head trauma, a small focus of subarachnoid hemorrhage could have this appearance. Followup could be obtained to ensure no increase in this finding. The patient also was noted to have a left frontal scalp cephalohematoma and degenerative changes throughout the cervical spine without any acute fracture or dislocation. Because of the suspicion for subarachnoid hemorrhage with fall and head injury along with sick sinus syndrome with very significant pauses, the patient was admitted to Intensive Care Unit for further management. Plan was to put a permanent pacemaker in the hospital. For more details regarding the past history, family history, social history, surgical history and other details, please refer to History and Physical. 1. Closed head injury Repeat CT scan does not show any evidence of hemorrhage. consult Dr. Douglas for neurosurgical evaluation and management. 2. Sick sinus syndrome and sinus pauses. June 30, 2020 1. Successful implantation of a Biotronik MRI compatible single-chamber pacemaker for atrial fibrillation with high-grade AV block and 8-second pause. Consult Dr. Li for cardiology evaluation and management. A pacemaker Inserted on June 30, 2020. The patient was given vitamin K in the Emergency Room and the patient has also received fresh frozen plasma. INR is 2.1. 4. Atrial fibrillation.. Hold Coumadin and Plavix due to head injury and planned procedure. 5. Coronary artery disease. Continue present treatment. 6. Diabetes mellitus type 2. Verify home medications. Restart NPH insulin. 7. Aortic stenosis. The patient has been scheduled for TAVR at [facility] towards the end of the month. 8. Severe mitral stenosis. Continue to monitor. Recheck labs in a.m. 9. Asthma exacerbation Better. Continue Symbicort at home. Coumadin and Plavix were discontinued due to recent head injury. Patient is also going to get TAVR in 10 days so Coumadin will be stopped during this time. Patient has been started on aspirin 81 mg daily. Patient is not sure that she wants to go ahead with TAVR on July 13 because she feels that it is too soon and she needs more time and help. I have advised her to talk to the physician. Decrease NPH insulin to 35 units subcu daily at home. She is to take 45 units in AM and 5 units at bedtime. We will continue to adjust insulin as outpatient she is clinically improving. Discharge home with home health services. Medications Current Medications Medications (Trade) Dose Ordered Sig/Giuseppe Route PRN Reason Start Time Stop Time Status Last Admin Dose Admin Metformin HCl (Glucophage) 500 mg BIDWMEALS PO 07/02/20 17:00 07/03/20 08:59 Aspirin (Ecotrin) 81 mg DAILYWBKFT PO 07/02/20 14:00 07/03/20 08:59 Medications reviewed and reconciled for discharge. Allergy Allergies Coded Allergies Type Severity Reaction Last Updated Verified colchicine Allergy Intermediate Rash 04/16/19 Yes Follow up in 5 days. DISPOSITION: Home health services Comments Discharge Management - 35 minutes. For other details please refer to discharge instructions Justicifation of Admission Dx: Justifications for Admission: Justification of Admission Dx: Yes ELISABETH AYON MD Jul 03, 2020 09:36
[2020-07-03 10:00] LABS: BASO % 0 % (0-3); EOS # 0.1 x10^3/uL (0.0-0.7); EOS % 2 % (0-3); HEMATOCRIT 33.5 % (36.0-47.0); HEMOGLOBIN 10.8 g/dL (12.0-15.5); LYMPH # 1.2 x10^3/uL (1.0-4.8); LYMPH % 13 % (24-48); MEAN CORPUSCULAR HEMOGLOBIN 27 pg (25-35); MEAN CORPUSCULAR HGB CONC 32 g/dL (31-37); MEAN CORPUSCULAR VOLUME 84 fL (79-100); MONO # 0.9 x10^3/uL (0.0-1.1); MONO % 10 % (0-9); NEUT # 7.1 x10^3/uL (1.8-7.7); NEUT % 76 % (31-73); PLATELET COUNT 269 x10^3/uL (140-400); RED CELL DISTRIBUTION WIDTH 16.7 % (11.5-14.5); WHITE BLOOD COUNT 9.4 x10^3/uL (4.0-11.0)
[2020-07-03] MEDS ORDERED: BUDE10.2 IH (10:16)
[2020-07-03 10:39] LABS: PROTHROMBIN TIME PATIENT 13.1 SEC (11.7-14.0)
[2020-07-03 11:20] VITALS: BP 123/45
--- NOTE | 2020-07-03 13:22 | PDOC ---
Provider Note Date of Service: DATE: 07/03/20 TIME: 13:20 Provider Note S: No new events. passed the 6 MHWT O: L sided pacer site is c/d/i. Minimal erythma and edema. No drainage. No edema. Lungs clr. Regular heart tones (paced) labs reviewed. CXR reviewed. Impression: 1. and afib with SSS and CHB. Plan: 1. Doing well today. Will send home on asa and metoprolol/lisinopril. 5 day course of keflex for her pacer. 2. She will f/u at [facility] for her evaluation next week. 3. hold coumadin and plavix. Discussed with nursing, patient and family. Thanks. Justifications for Admission Other Justification RODERICK NGUYỄN MD Jul 03, 2020 13:22
--- NOTE | 2020-07-03 13:30 | NUR ---
Discharge Note: JAJA ROWAN [address] [place] [address] Discharge instructions and discharge home medications reviewed with Patient and a copy given. All questions have been answered and understanding verbalized. The following instructions and handouts were given: discharge instructions, follow ups, pacemaker discharge instructions, fall & safety info, prescription for keflex from Dr. Li Discontinued lines and drains: Peripheral IV intact. Patient discharged to Home w/services ([facility]) with Family Member via Wheelchair at 1330.
[2020-07-04] MEDS ORDERED: INSULIN GLARGINE SYRINGE. SQ SCH (10:00)
== END 2020-07-03 13:30 | disposition home health service (06) | DRG 242 ==
LOC: ER 01:45 → 1 WEST ICU 03:48 → 2 NORTH 18:37
PROVIDERS: ADMIT Internal Medicine; ATTEND Internal Medicine
PROC: 0JH604Z Insertion of Pacemaker, Single Chamber into Chest Subcutaneous Tissue and Fascia, Open Approach (ICD-10-PCS; principal; 2020-06-30)
PROC: 02HK3JZ Insertion of Pacemaker Lead into Right Ventricle, Percutaneous Approach (ICD-10-PCS; 2020-06-30)
PROC: 30233K1 Transfusion of Nonautologous Frozen Plasma into Peripheral Vein, Percutaneous Approach (ICD-10-PCS; 2020-06-30)
PROC: 4B02XSZ Measurement of Cardiac Pacemaker, External Approach (ICD-10-PCS; 2020-07-01)
DX: I49.5 Sick sinus syndrome (principal); S06.6X9A Traumatic subarachnoid hemorrhage with loss of consciousness of unspecified duration, initial encounter; I50.33 Acute on chronic diastolic (congestive) heart failure; S06.2X9A Diffuse traumatic brain injury with loss of consciousness of unspecified duration, initial encounter; I13.0 Hypertensive heart and chronic kidney disease with heart failure and stage 1 through stage 4 chronic kidney disease, or unspecified chronic kidney disease; I44.2 Atrioventricular block, complete; I48.21 Permanent atrial fibrillation; J45.901 Unspecified asthma with (acute) exacerbation; N17.9 Acute kidney failure, unspecified; N18.4 Chronic kidney disease, stage 4 (severe); E78.5 Hyperlipidemia, unspecified; E11.22 Type 2 diabetes mellitus with diabetic chronic kidney disease; E11.40 Type 2 diabetes mellitus with diabetic neuropathy, unspecified; E11.51 Type 2 diabetes mellitus with diabetic peripheral angiopathy without gangrene; I08.0 Rheumatic disorders of both mitral and aortic valves; I25.10 Atherosclerotic heart disease of native coronary artery without angina pectoris; I27.20 Pulmonary hypertension, unspecified; M19.90 Unspecified osteoarthritis, unspecified site; Z66 Do not resuscitate; S80.212A Abrasion, left knee, initial encounter; Z79.01 Long term (current) use of anticoagulants; Z82.49 Family history of ischemic heart disease and other diseases of the circulatory system; Z85.3 Personal history of malignant neoplasm of breast; Z95.0 Presence of cardiac pacemaker; Z98.61 Coronary angioplasty status; F32.9 Major depressive disorder, single episode, unspecified; F41.9 Anxiety disorder, unspecified; J30.9 Allergic rhinitis, unspecified; G62.9 Polyneuropathy, unspecified; M10.9 Gout, unspecified; Z20.828 Contact with and (suspected) exposure to other viral communicable diseases; Z88.8 Allergy status to other drugs, medicaments and biological substances; W18.39XA Other fall on same level, initial encounter; Y93.89 Activity, other specified; Y92.89 Other specified places as the place of occurrence of the external cause; Y99.8 Other external cause status
CPT/HCPCS: 33207; 36415; 70450; 71045; 71250; 72125; 80048; 80053; 82962; 83735; 84484; 85025; 85610; 86850; 86900; 86901; 86927; 87426; 93005; 94618; 94640; 94760; 99152; 99153; C1786; C1898; J0282; J0690; J1815; J1940; J2250; J3010; J3430; J7040; J7050; P9017; U0003; 97116-GP; 97530-GO; 97535-GO; G0378; J7030; J7613; J7626

== ENCOUNTER → 2020-11-24 | Outpatient (CLI) | payer MEDICARE ==
[~2020-11-24] MED LIST changes: +ACET325T9 PO; +ASPI-886 PO; +BUDE10.2 IH; +CHOL500021 PO; +CYAN50009 PO; +DILT180C29 PO; +GABA300C18 PO; +HYDR-2145 PO; -HYDR50TA6 PO; +HYDR50TA9 PO; -LISI-334 PO; +LISI20TA18 PO; +MAGN200T7 PO
--- NOTE | 2020-11-24 11:26 | RAD ---
DATE: November 24, 2020 EXAM: MAMMO SAURAB[facility] SCREENING BILATERAL HISTORY: History of right breast cancer treated with lumpectomy and 2013. New pacemaker placement on the left side. COMPARISON: 2016 and 2018 This study was interpreted with the benefit of Computerized Aided Detection (CAD). FINDINGS: Breast Density: SCATTERED The breast parenchyma shows scattered fibroglandular densities. Breast parenchyma level B. There are no new dominant suspicious masses, suspicious pleomorphic microcalcifications or new architectural distortion. Postoperative changes of the right breast are stable. Coarse benign-appearing calcifications are seen bilaterally. These are stable. IMPRESSION: No mammographic indicators for new or recurrent malignancy. BI-RADS CATEGORY: 2 BENIGN FINDING RECOMMENDED FOLLOW-UP: 12M 12 MONTH FOLLOW-UP PQRS compliance statement: Patient information was entered into a reminder system with a target due date November 25, 2021 for the next mammogram. Mammography is a sensitive method for finding small breast cancers, but it does not detect them all and is not a substitute for careful clinical examination. A negative mammogram does not negate a clinically suspicious finding and should not result in delay in biopsying a clinically suspicious abnormality. "Our facility is accredited by the [employer] Mammography Program." The patient's breast density may affect the ability of mammography to detect breast cancer. There are 4 categories of breast density, A, B, C and D. Breast density A means that most of the breast tissue is replaced with adipose tissue and therefore is not dense. Breast density B means that the breast tissue is mildly dense and scattered. Breast density C means that the breast tissue is heterogeneously dense. Breast density D means that the breast tissue is very dense. Breast densities especially C and D may decrease the sensitivity of mammography to detect breast cancer. Therefore, the patient may benefit from 3-D breast mammography (3D breast tomography) as a part of their screening mammogram. Insurance may or may not pay for this additional imaging. The patient's breast density based on today's mammogram is category B.
== END ==
LOC: MAMMO 10:13
PROVIDERS: ATTEND Internal Medicine
DX: Z12.31 Encounter for screening mammogram for malignant neoplasm of breast (principal)
CPT/HCPCS: 77063; 77067

== ENCOUNTER 2020-11-28 18:27 | Emergency (ER) | payer MEDICARE ==
[~2020-11-28] VITALS: Ht 180.3 cm; Wt 95.0 kg
[2020-11-28] MEDS ORDERED: IV NORMAL SALINE 1000ML BAG 1,000 ML IV ONE (18:45)
[2020-11-28 19:50] LABS: BASO # 0.1 x10^3/uL (0.0-0.2); BASO % 1 % (0-3); EOS # 0.1 x10^3/uL (0.0-0.7); EOS % 1 % (0-3); HEMATOCRIT 38.3 % (36.0-47.0); HEMOGLOBIN 12.4 g/dL (12.0-15.5); LYMPH # 0.9 x10^3/uL (1.0-4.8); LYMPH % 11 % (24-48); MEAN CORPUSCULAR HEMOGLOBIN 28 pg (25-35); MEAN CORPUSCULAR HGB CONC 32 g/dL (31-37); MEAN CORPUSCULAR VOLUME 85 fL (79-100); MONO # 0.8 x10^3/uL (0.0-1.1); MONO % 11 % (0-9); NEUT # 6.1 x10^3/uL (1.8-7.7); NEUT % 77 % (31-73); PLATELET COUNT 304 x10^3/uL (140-400); RED BLOOD COUNT 4.48 x10^6/uL (3.50-5.40); RED CELL DISTRIBUTION WIDTH 17.7 % (11.5-14.5); WHITE BLOOD COUNT 7.9 x10^3/uL (4.0-11.0)
[2020-11-28 20:01] LABS: CALCIUM 9.5 mg/dL (8.5-10.1); CREATININE 1.6 mg/dL (0.6-1.0); GFR 30.9
[2020-11-28 20:07] LABS: ALBUMIN 3.6 g/dL (3.4-5.0); TOTAL BILIRUBIN 0.5 mg/dL (0.2-1.0); TOTAL PROTEIN 7.1 g/dL (6.4-8.2)
--- NOTE | 2020-11-28 20:22 | RAD ---
Exam: CT of abdomen and pelvis without contrast INDICATION: Left flank pain TECHNIQUE: Sequential axial images through the abdomen and pelvis obtained without IV contrast. Sagit gladys and coronal reformatted images were reconstructed from the axial data and reviewed. Exposure: One or more of the following in the visualized dose reduction techniques were utilized for this examination: 1. Automated exposure control 2. Adjustment of the MA and/or KV according to patient size 3. Use of iterative of reconstructive technique Comparisons: None FINDINGS: Heart size is normal. Pacer leads noted in the right heart. Small bilateral pleural effusions. Evaluation of the solid organs is limited secondary to noncontrast technique. Liver, spleen, pancreas, gallbladder and adrenals are unremarkable. No perinephric inflammation or hydronephrosis. No renal or ureteral calculi are identified. Bladder is distended and appears thin-walled. Uterus is not enlarged. No abnormal adnexal mass. Large and small bowel are unremarkable. Appendix is normal. No free intra-abdominal air or fluid. No obstruction. Abdominal aorta has a normal course and caliber. No enlarged intra-abdominal lymph nodes are identified. No suspicious osseous lesions or acute fractures. IMPRESSION: 1. No acute process identified within the abdomen or pelvis. 2. Small bilateral pleural effusions. Electronically signed by: Nona Benson MD (11/28/2020 8:20 PM) [facility]
[2020-11-28 20:47] LABS: BILIRUBIN,URINE NEGATIVE (NEG); CLARITY,URINE CLEAR; COLOR,URINE YELLOW; NITRITE,URINE NEGATIVE (NEG); PROTEIN,URINE NEGATIVE (NEG-TRACE); UROBILINOGEN,URINE 0.2 mg/dL (0.2 mg/dL)
[2020-11-28 20:58] LABS: BACTERIA,URINE FEW /HPF (0-FEW); HYALINE CASTS, URINE FEW /HPF
[2020-11-28 20:59] LABS: RBC,URINE 0 /HPF (0-2)
[2020-11-28] MEDS ORDERED: DEXTROSE 50% 25 GM / 50ML DISP.SYRIN. IV PRN (21:15)
[2020-11-28] MEDS ORDERED: INSULIN REGULAR 100 UNIT/ML 3ML VIAL. IV ONE (21:15)
[2020-11-28 21:32] VITALS: BP 187/69
--- NOTE | 2020-11-28 21:42 | PHYS DOC ---
Past Medical History Past Medical History: A-Fib, Anxiety, Asthma, Diabetes-Type II, High Cholesterol, Hypertension, Pneumonia, Renal Disease, Other (JULIETTE FRANCE ADAPTED PHYSICAL EDUCATION SPECIALIST) Past Surgical History: Knee Replacement, Pacemaker, Other Additional Past Surgical Histo: AVR, LEFT FEM POP, RIGHT KNEE REPLACEMENT (JULIETTE FRANCE ADAPTED PHYSICAL EDUCATION SPECIALIST) Smoking Status: Never Smoker Alcohol Use: None (JULIETTE FRANCE ADAPTED PHYSICAL EDUCATION SPECIALIST) General Adult EDM: Chief Complaint: HYPERGLYCEMIA HPI: HPI: Patient is a 80 year old female with history of A. fib, hypertension, high cholesterol, kidney disease, among other illnesses who presents today complaining of hyperglycemia. Patient states she believes her insulin pen is not working so she feels she did not get the right dose of insulin. She states she has a new pain. She states the PCP asked her to come to the ED. Patient denies any symptoms (JULIETTE FRANCE ADAPTED PHYSICAL EDUCATION SPECIALIST) Review of Systems: Review of Systems: Constitutional: Denies fever or chills. [] Eyes: Denies change in visual acuity. [] HENT: Denies nasal congestion or sore throat. [] Respiratory: Denies cough or shortness of breath. [] Cardiovascular: Denies chest pain or edema. [] GI: Denies abdominal pain, nausea, vomiting, bloody stools or diarrhea. [] : Denies dysuria. [] Musculoskeletal: Denies back pain or joint pain. [] Integument: Denies rash. [] Neurologic: Denies headache, focal weakness or sensory changes. [] Endocrine: Reports hypoglycemia Psychiatric: Denies depression or anxiety. [] (JULIETTE FRANCE ADAPTED PHYSICAL EDUCATION SPECIALIST) Heart Score: C/O Chest Pain: N/A Risk Factors: Risk Factors: DM, Current or recent (<one month) smoker, HTN, HLP, family history of CAD, obesity. Risk Scores: Score 0 - 3: 2.5% MACE over next 6 weeks - Discharge Home Score 4 - 6: 20.3% MACE over next 6 weeks - Admit for Clinical Observation Score 7 - 10: 72.7% MACE over next 6 weeks - Early Invasive Strategies (JULIETTE FRANCE ADAPTED PHYSICAL EDUCATION SPECIALIST) Current Medications: Current Medications Medications (Trade) Dose Ordered Sig/Giuseppe Start Time Stop Time Status Last Admin Dose Admin Dextrose (Dextrose 50%-Water Syringe) 12.5 gm PRN Q15MIN PRN 11/28/20 21:15 Insulin Human Lispro (HumaLOG) 0-5 UNITS TIDWMEALS 11/29/20 08:00 Insulin Human Regular (HumuLIN R VIAL) 5 unit 1X ONCE 11/28/20 21:15 11/28/20 21:16 DC 11/28/20 21:18 5 UNIT Sodium Chloride 1,000 ml @ 1,000 mls/hr 1X ONCE 11/28/20 18:45 11/28/20 19:44 DC 11/28/20 19:42 1,000 MLS/HR (JULIETTE FRANCE ADAPTED PHYSICAL EDUCATION SPECIALIST) Allergies: Allergies: Allergies Coded Allergies Type Severity Reaction Last Updated Verified colchicine Allergy Intermediate Rash 04/16/19 Yes (JULIETTE FRANCE ADAPTED PHYSICAL EDUCATION SPECIALIST) Physical Exam: PE: Constitutional: Well developed, well nourished, no acute distress, non-toxic appearance. [] HENT: Normocephalic, atraumatic, bilateral external ears normal, oropharynx moist, no oral exudates, nose normal. [] Eyes: PERRLA, EOMI, conjunctiva normal, no discharge. [] Neck: Normal range of motion, no tenderness, supple, no stridor. [] Cardiovascular:Heart rate regular rhythm, no murmur [] Lungs & Thorax: Bilateral breath sounds clear to auscultation [] Abdomen: Bowel sounds normal, soft, no tenderness, no masses, no pulsatile masses. [] Skin: Warm, dry, no erythema, no rash. [] Back: No tenderness, no CVA tenderness. [] Extremities: No tenderness, no cyanosis, no clubbing, ROM intact, no edema. [] Neurologic: Alert and oriented X 3, normal motor function, normal sensory function, no focal deficits noted. [] Psychologic: Affect normal, judgement normal, mood normal. [] (JULIETTE FRANCE ADAPTED PHYSICAL EDUCATION SPECIALIST) Current Patient Data: Labs: Laboratory Tests Test 11/28/20 19:40 11/28/20 20:35 White Blood Count 7.9 x10^3/uL (4.0-11.0) Red Blood Count 4.48 x10^6/uL (3.50-5.40) Hemoglobin 12.4 g/dL (12.0-15.5) Hematocrit 38.3 % (36.0-47.0) Mean Corpuscular Volume 85 fL (79-100) Mean Corpuscular Hemoglobin 28 pg (25-35) Mean Corpuscular Hemoglobin Concent 32 g/dL (31-37) Red Cell Distribution Width 17.7 % (11.5-14.5) H Platelet Count 304 x10^3/uL (140-400) Neutrophils (%) (Auto) 77 % (31-73) H Lymphocytes (%) (Auto) 11 % (24-48) L Monocytes (%) (Auto) 11 % (0-9) H Eosinophils (%) (Auto) 1 % (0-3) Basophils (%) (Auto) 1 % (0-3) Neutrophils # (Auto) 6.1 x10^3/uL (1.8-7.7) Lymphocytes # (Auto) 0.9 x10^3/uL (1.0-4.8) L Monocytes # (Auto) 0.8 x10^3/uL (0.0-1.1) Eosinophils # (Auto) 0.1 x10^3/uL (0.0-0.7) Basophils # (Auto) 0.1 x10^3/uL (0.0-0.2) Sodium Level 136 mmol/L (136-145) Potassium Level 4.0 mmol/L (3.5-5.1) Chloride Level 98 mmol/L (98-107) Carbon Dioxide Level 31 mmol/L (21-32) Anion Gap 7 (6-14) Blood Urea Nitrogen 23 mg/dL (7-20) H Creatinine 1.6 mg/dL (0.6-1.0) H Estimated GFR (Cockcroft-Gault) 30.9 BUN/Creatinine Ratio 14 (6-20) Glucose Level 314 mg/dL (70-99) H Calcium Level 9.5 mg/dL (8.5-10.1) Total Bilirubin 0.5 mg/dL (0.2-1.0) Aspartate Amino Transferase (AST) 13 U/L (15-37) L Alanine Aminotransferase (ALT) 19 U/L (14-59) Alkaline Phosphatase 92 U/L (46-116) Total Protein 7.1 g/dL (6.4-8.2) Albumin 3.6 g/dL (3.4-5.0) Albumin/Globulin Ratio 1.0 (1.0-1.7) Urine Collection Type Unknown Urine Color Yellow Urine Clarity Clear Urine pH 7.0 (<5.0-8.0) Urine Specific Beatty 1.010 (1.000-1.030) Urine Protein Negative mg/dL (NEG-TRACE) Urine Glucose (UA) 250 mg/dL (NEG) Urine Ketones (Stick) Negative mg/dL (NEG) Urine Blood Negative (NEG) Urine Nitrite Negative (NEG) Urine Bilirubin Negative (NEG) Urine Urobilinogen Dipstick 0.2 mg/dL (0.2 mg/dL) Urine Leukocyte Esterase Small (NEG) Urine RBC 0 /HPF (0-2) Urine WBC 1-4 /HPF (0-4) Urine Squamous Epithelial Cells Mod /LPF Urine Bacteria Few /HPF (0-FEW) Urine Hyaline Casts Few /HPF Laboratory Tests 11/28/20 19:40 Laboratory Tests 11/28/20 19:40 Vital Signs: Vital Signs Date Time Temp Pulse Resp B/P (MAP) Pulse Ox O2 Delivery O2 Flow Rate FiO2 11/28/20 19:09 98.2 105 18 148/105 (119) 93 Room Air 98.2 (JULIETTE FRANCE APRN) EKG: EKG: [] (JULIETTE FRANCE APRN) Radiology/Procedures: Radiology/Procedures: [] (JULIETTE FRANCE APRN) Course & Med Decision Making: Course & Med Decision Making Pertinent Labs and Imaging studies reviewed. (See chart for details) This is a 80-year-old female patient presenting to the ED today with hyperglycemia, she believes the insulin pen is not working right. Blood glucose was 314 with a normal anion gap. Creatinine 1.6 BUN of 23, history of chronic renal insufficiency. Spoke to Dr. Corcoran, he requested to give patient insulin N ovoLog sliding scale and Novolin 5 units and send her home. Orders were done. She was discharged. (JULIETTE FRANCE APRN) Course & Med Decision Making The chart was reviewed. I did not see the patient. The MLP evaluated and treated the patient independently. I was available for consult. (CLEMENCIA FREDERICK DO) [place] Disclaimer: Dragon Disclaimer: This electronic medical record was generated, in whole or in part, using a voice recognition dictation system. (JULIETTE FRANCE APRN) Departure Departure Impression: Primary Impression: Hyperglycemia Additional Impression: Chronic renal insufficiency Qualified Codes: N18.9 - Chronic kidney disease, unspecified Disposition: HOME / SELF CARE / HOMELESS Condition: STABLE Referrals: ELISABETH CORCORAN MD (PCP) Follow-up in 1 to 2 weeks Patient Instructions: Hyperglycemia, [id number] Additional Instructions: You were evaluated in the emergency room, your blood glucose was 314. You got to today's dose of insulin. Resume your normal insulin dose tomorrow as prescribed by JULIETTE Junior APRN November 28, 2020 21:42 CLEMENCIA FREDERICK I DO December 01, 2020 18:00
[2020-11-29] MEDS ORDERED: INSULIN LISPRO 300 UNITS/3 ML VIAL. SQ SCH (08:00)
== END 2020-11-28 21:50 | disposition home or self-care (01) ==
LOC: ER 18:27
DX: E11.65 Type 2 diabetes mellitus with hyperglycemia (principal); J45.909 Unspecified asthma, uncomplicated; I48.91 Unspecified atrial fibrillation; E78.00 Pure hypercholesterolemia, unspecified; I10 Essential (primary) hypertension; Z95.0 Presence of cardiac pacemaker; Z88.8 Allergy status to other drugs, medicaments and biological substances
CPT/HCPCS: 36415; 74176; 80053; 81001; 85025; 87086; 96361; 96374; 99285; J1815; J7030

== ENCOUNTER 2021-03-23 18:07 | Emergency (ER) | payer MEDICARE ==
[2021-01-13 15:00] VITALS: BP 165/60
[~2021-03-23 18:07] MED LIST changes: +ALBU2.5V8 IH; +ALPR0.254 PO; +ATOR40TA59 PO; +CEPH500C PO; +FURO40TA4 PO; +Fluconazole PO; +LACT1CAP19 PO; +LISI2.5T12 PO; +METO-239 PO; +PANT40TA77 PO
== END 2021-03-23 20:19 | disposition left against medical advice (07) ==
LOC: ER 18:07
DX: R04.0 Epistaxis (principal); Z53.21 Procedure and treatment not carried out due to patient leaving prior to being seen by health care provider

== ENCOUNTER → 2021-04-20 | Outpatient (CLI) | payer MEDICARE ==
[2021-01-13 15:00] VITALS: BP 165/60
--- NOTE | 2021-04-21 10:45 | CARD ---
MR#: [id number] Date of Study: 04/20/2021 Ordering Physician: RODERICK NGUYỄN, Referring Physician: RODERICK NGUYỄN, Tech: Martín Balderas [facility] APPROVED REPORT EXAM: Two-dimensional and M-mode echocardiogram with Doppler and color Doppler. Other Information Quality : AverageHR: 82bpm Rhythm : Atrial Fibrillation INDICATION Cardiac Disease: CAD Surgery/Intervention Status/Post Aortic Valve Replacement: Bioprosthetic Date: 07/13/20 RISK FACTORS Hypertension Obesity Hyperlipidemia Diabetes 2D DIMENSIONS IVSd1.1 (0.7-1.1cm)Aortic Root(2D)2.5 (2.0-3.7cm) LVDd4.4 (3.9-5.9cm)LVOT Diameter1.8 (1.8-2.4cm) PWd1.1 (0.7-1.1cm)LVDs2.4 (2.5-4.0cm) FS (%) 45.1 %SV65.5 ml LVEF(%)76.7 (>50%) Aortic Valve AoV Peak Tyshawn.157.0cm/sAoV VTI28.3cm AO Peak GR.9.9mmHgLVOT Peak Tyshawn.128.8cm/s AO Mean GR.5mmHgAVA (VMAX)1.99cm2 Mitral Valve MV E Peak Gr.31mmHgMV E Mean Gr.10mmHg Pulmonary Valve PV Peak Xdbswxdm30.1cm/s Tricuspid Valve TR P. [id number]/sTR Peak Gr.66mmHg Pulmonary Vein S1 Tdpxdagm60.4cm/sD2 Pmqujeth70.0cm/s LEFT VENTRICLE The left ventricle is normal size. There is normal left ventricular wall thickness. The left ventricu lar systolic function is normal and the ejection fraction is within normal range. EF 55% There is nor mal LV segmental wall motion. Tissue Doppler imaging reveals moderate left ventricular diastolic dysf unction. No left ventricle thrombus noted on this study. There is no ventricular septal defect visual ized. There is no left ventricular aneurysm. There is no mass noted in the left ventricle. RIGHT VENTRICLE The right ventricle is mildly dilated. There is normal right ventricular wall thickness. The right ve ntricular systolic function is normal. Pacemaker lead is noted in the right ventricle. ATRIA The left atrium is moderately dilated. The right atrium is mildly dilated. The interatrial septum is intact with no evidence for an atrial septal defect or patent foramen ovale as noted on 2-D or Dopple r imaging. AORTIC VALVE Doppler and Color Flow revealed no significant aortic regurgitation. There is no significant aortic v alvular stenosis. Calculated aortic valve area is 1.7 cm2 with maximum pressure gradient of 10 mmHg a nd mean pressure gradient of 5 mmHg. There is no aortic valvular vegetation. Aortic valve appears wel l seated. (TAVR) MITRAL VALVE Mitral annular calcification is moderate to severe. There is no evidence of mitral valve prolapse. Th ere is moderate mitral valve stenosis. Calculated mitral valve area is 1.0 cm2 with maximum pressure gradient of 32 mmHg and mean pressure gradient of 11 mmHg. Doppler and Color-flow revealed moderate m itral regurgitation. TRICUSPID VALVE The tricuspid valve leaflets are thickened , but open well. Doppler and Color Flow revealed mild to m oderate tricuspid regurgitation. The PA pressure was estimated at 75 mmHg. There is no tricuspid valv e prolapse or vegetation. There is no tricuspid valve stenosis. PULMONIC VALVE Doppler and Color Flow revealed no pulmonic valvular regurgitation. There is no pulmonic valvular araceli nosis. GREAT VESSELS The aortic root is normal in size. The ascending aorta is normal in size. The IVC is dilated with jaquelin nted inspiratory response. PERICARDIAL EFFUSION Moderate sized pleural effusion noted. There is no evidence of significant pericardial effusion. Critical Notification Critical Value: No <Conclusion> The left ventricular systolic function is normal and the ejection fraction is within normal range. EF 55% There is normal LV segmental wall motion. Pacemaker lead is noted in the right ventricle. Aortic valve appears well seated. (TAVR) Mitral annular calcification is moderate to severe. There is moderate mitral valve stenosis. Calculated mitral valve area is 1.0 cm2 with maximum pressur e gradient of 32 mmHg and mean pressure gradient of 11 mmHg. Doppler and Color Flow revealed mild to moderate tricuspid regurgitation. The PA pressure was estimat ed at 75 mmHg. The IVC is dilated with blunted inspiratory response. Moderate sized pleural effusion noted. Signed by : Roderick Nguyễn, Electronically Approved : 04/21/2021 10:44:51
== END ==
LOC: ECHO 15:00
PROVIDERS: ATTEND Internal Medicine Cardiovascular Disease
DX: I08.1 Rheumatic disorders of both mitral and tricuspid valves (principal); I25.10 Atherosclerotic heart disease of native coronary artery without angina pectoris
CPT/HCPCS: 93306

== ENCOUNTER 2021-05-09 16:43 | Emergency (ER) | payer MEDICARE ==
[~2021-05-09] VITALS: Ht 180.3 cm; Wt 105.0 kg
[2021-05-09 17:06] VITALS: BP 187/89
[2021-05-09 17:47] LABS: BASO % 1 % (0-3); EOS % 0 % (0-3); HEMATOCRIT 40.6 % (36.0-47.0); HEMOGLOBIN 12.9 g/dL (12.0-15.5); LYMPH # 0.9 x10^3/uL (1.0-4.8); LYMPH % 10 % (24-48); MEAN CORPUSCULAR HEMOGLOBIN 27 pg (25-35); MEAN CORPUSCULAR HGB CONC 32 g/dL (31-37); MEAN CORPUSCULAR VOLUME 84 fL (79-100); MONO % 12 % (0-9); NEUT % 77 % (31-73); PLATELET COUNT 275 x10^3/uL (140-400); RED BLOOD COUNT 4.82 x10^6/uL (3.50-5.40); RED CELL DISTRIBUTION WIDTH 19.2 % (11.5-14.5)
--- NOTE | 2021-05-09 17:48 | EKG ---
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
[2021-05-09 18:01] LABS: CALCIUM 8.6 mg/dL (8.5-10.1); CREATININE 1.6 mg/dL (0.6-1.0); GFR 30.9; POTASSIUM 4.7 mmol/L (3.5-5.1)
[2021-05-09 18:06] LABS: ALBUMIN 2.9 g/dL (3.4-5.0); ALBUMIN/GLOBULIN RATIO 0.8 (1.0-1.7); C-REACTIVE PROTEIN 21.4 mg/L (0-3.3); TOTAL BILIRUBIN 0.7 mg/dL (0.2-1.0); TOTAL PROTEIN 6.6 g/dL (6.4-8.2)
[2021-05-09 18:20] LABS: MAGNESIUM 1.8 mg/dL (1.8-2.4); PHOSPHORUS 3.1 mg/dL (2.6-4.7)
[2021-05-09] MEDS ORDERED: BACITRACIN TOPICAL OINT PACKET. TP ONE ×2 (18:31→19:00)
[2021-05-09 18:50] LABS: PROTHROMBIN TIME PATIENT 24.7 SEC (11.7-14.0)
--- NOTE | 2021-05-09 19:09 | RAD ---
EXAM: XR BILAT FEET 3 VIEWS 05/09/2021 6:00 PM CLINICAL INDICATION: Cellulitis, rule out deep infection. COMPARISON: Bilateral foot radiograph TECHNIQUE: 3 views of the right left foot FINDINGS: Right foot: The bones are diffusely demineralized, limiting the exam. There is no definite osseous de struction. No acute fracture. There is hallux valgus. Mild degenerative joint disease of the great to e MTP joint. There are vascular calcifications and mild diffuse soft tissue swelling. No soft tissue gas. Left foot: Surgical changes of second and fifth toe amputations. The bones are diffusely demineralize d, limiting the exam. There is no definite osseous destruction. No acute fracture. Mild degenerative joint disease of the great toe MTP joint. There are vascular calcifications and mild diffuse soft tis mendoza swelling. No soft tissue gas. IMPRESSION: 1. No radiographic evidence of osteomyelitis in either foot. 2. Osteopenia, mildly limiting the exam. 3. Surgical changes of left second fifth toe amputation. Electronically signed by: Barbara Marroquin MD (05/09/2021 7:07 PM) [id number]
--- NOTE | 2021-05-09 19:18 | PHYS DOC ---
Past Medical History Past Medical History: A-Fib, Anxiety, Asthma, Diabetes-Type II, High Cholesterol, Hypertension, Pneumonia, Renal Disease, Other Past Surgical History: Cancer Surgery Additional Past Surgical Histo: AVR, LEFT FEM POP, RIGHT KNEE REPLACEMENT Smoking Status: Never Smoker Alcohol Use: None General Adult EDM: Chief Complaint: LOWEREXTREMITY INJURY HPI: HPI: Patient is a 80-year-old female presents to the emergency department concerning a bleeding leg ulcer on her right fry that started today. Patient fears she has cellulitis and needs to be admitted to the hospital. Patient reports bilateral lower extremity redness, states her toes are dark but are looking better than usual, states she was on her way to see her primary care physician Dr. Corcoran when she decided to come to the emergency department instead. Patient denies shortness of breath, denies chest pains, denies dizziness or syncopal episodes, denies fever or chills. Patient denies extremity pain outside of her normal chronic pains of her lower extremities. Patient reports her last tetanus immunization was less than 5 years ago. Patient denies other physical complaints or physical concerns. Review of Systems: Review of Systems: 14 body systems of review of systems have been reviewed. See HPI for pertinent positives and negative responses, otherwise all other systems are negative, nonpertinent or noncontributory. Constitutional: Negative except as outlined in HPI above. Skin: Negative except as outlined in HPI above. Eyes: Negative except as outlined in HPI above. HENT: Negative except as outlined in HPI above. Respiratory: Negative except as outlined in HPI above. Cardiovascular: Negative except as outlined in HPI above. GI: Negative except as outlined in HPI above. : Negative except as outlined in HPI above. Musculoskeletal: Negative except as outlined in HPI above. Integument: Negative except as outlined in HPI above. Neurologic: Negative except as outlined in HPI above. Endocrine: Negative except as outlined in HPI above. Lymphatic: Negative except as outlined in HPI above. Psychiatric: Negative except as outlined in HPI above. Heart Score: C/O Chest Pain: No Risk Factors: Risk Factors: DM, Current or recent (<one month) smoker, HTN, HLP, family history of CAD, obesity. Risk Scores: Score 0 - 3: 2.5% MACE over next 6 weeks - Discharge Home Score 4 - 6: 20.3% MACE over next 6 weeks - Admit for Clinical Observation Score 7 - 10: 72.7% MACE over next 6 weeks - Early Invasive Strategies Current Medications: Current Medications Medications (Trade) Dose Ordered Sig/Giuseppe Start Time Stop Time Status Last Admin Dose Admin Bacitracin (Bacitracin Zinc Oint Pkt) 1 pkt 1X ONCE 05/09/21 19:00 05/09/21 19:01 Allergies: Allergies: Allergies Coded Allergies Type Severity Reaction Last Updated Verified colchicine Allergy Intermediate Rash 04/16/19 Yes Physical Exam: PE: Constitutional: Well developed, well nourished, no acute distress, non-toxic appearance. 80-year-old female in no apparent distress. HENT: Normocephalic, atraumatic. Eyes: Conjunctiva normal, no discharge. Neck: Normal range of motion, no stridor. Cardiovascular: No cyanosis appreciated, distal cap refill less than 2 seconds. Lungs & Thorax: Patient is in no respiratory distress, no audible adventitious lung sounds appreciated. Lung sounds clear all lung cotter auscultation. Normal work of breathing. Abdomen: Nontender, no abnormalities noted. Skin: Warm, dry, no erythema, no rash. See extremity note for focused skin examination Back: No tenderness, no deformities. Extremities: No tenderness, no cyanosis, no clubbing, ROM intact, nonpitting edema to bilateral lower extremities ankle and feet, anterior shins erythematous with poorly demarcated borders, dorsalis pedis pulses toppled with bedside Doppler bilaterally, distal cap refill of remaining toes at 2 seconds. There is a 1/2 cm diameter diabetic skin lesion oozing bright red blood after bandage removed on right anterior fry midshaft. No other open skin lesions or drainage appreciated. Patient ambulated to room with steady gait from the waiting room. Neurologic: Alert and oriented X 3, normal motor function, normal sensory function, no focal deficits noted. Psychologic: Affect normal, judgement normal, mood normal. Current Patient Data: Labs: Laboratory Tests Test 05/09/21 17:35 White Blood Count 9.0 x10^3/uL Red Blood Count 4.82 x10^6/uL Hemoglobin 12.9 g/dL Hematocrit 40.6 % Mean Corpuscular Volume 84 fL Mean Corpuscular Hemoglobin 27 pg Mean Corpuscular Hemoglobin Concent 32 g/dL Red Cell Distribution Width 19.2 % Platelet Count 275 x10^3/uL Neutrophils (%) (Auto) 77 % Lymphocytes (%) (Auto) 10 % Monocytes (%) (Auto) 12 % Eosinophils (%) (Auto) 0 % Basophils (%) (Auto) 1 % Neutrophils # (Auto) 7.0 x10^3/uL Lymphocytes # (Auto) 0.9 x10^3/uL Monocytes # (Auto) 1.0 x10^3/uL Eosinophils # (Auto) 0.0 x10^3/uL Basophils # (Auto) 0.0 x10^3/uL Prothrombin Time 24.7 SEC Prothromb Time International Ratio 2.3 Sodium Level 141 mmol/L Potassium Level 4.7 mmol/L Chloride Level 101 mmol/L Carbon Dioxide Level 40 mmol/L Anion Gap 0 Blood Urea Nitrogen 36 mg/dL Creatinine 1.6 mg/dL Estimated GFR (Cockcroft-Gault) 30.9 BUN/Creatinine Ratio 23 Glucose Level 203 mg/dL Calcium Level 8.6 mg/dL Phosphorus Level 3.1 mg/dL Magnesium Level 1.8 mg/dL Total Bilirubin 0.7 mg/dL Aspartate Amino Transf (AST/SGOT) 27 U/L Alanine Aminotransferase (ALT/SGPT) 26 U/L Alkaline Phosphatase 130 U/L C-Reactive Protein, Quantitative 21.4 mg/L Total Protein 6.6 g/dL Albumin 2.9 g/dL Albumin/Globulin Ratio 0.8 Current Medications Medications (Trade) Dose Ordered Sig/Giuseppe Route PRN Reason Start Time Stop Time Status Last Admin Dose Admin Bacitracin (Bacitracin Zinc Oint Pkt) 1 pkt STK-MED ONCE TP 05/09/21 18:31 05/09/21 18:31 DC Bacitracin (Bacitracin Zinc Oint Pkt) 1 pkt 1X ONCE TP 05/09/21 19:00 05/09/21 19:01 Laboratory Tests Test 05/09/21 17:35 White Blood Count 9.0 x10^3/uL (4.0-11.0) Red Blood Count 4.82 x10^6/uL (3.50-5.40) Hemoglobin 12.9 g/dL (12.0-15.5) Hematocrit 40.6 % (36.0-47.0) Mean Corpuscular Volume 84 fL (79-100) Mean Corpuscular Hemoglobin 27 pg (25-35) Mean Corpuscular Hemoglobin Concent 32 g/dL (31-37) Red Cell Distribution Width 19.2 % (11.5-14.5) H Platelet Count 275 x10^3/uL (140-400) Neutrophils (%) (Auto) 77 % (31-73) H Lymphocytes (%) (Auto) 10 % (24-48) L Monocytes (%) (Auto) 12 % (0-9) H Eosinophils (%) (Auto) 0 % (0-3) Basophils (%) (Auto) 1 % (0-3) Neutrophils # (Auto) 7.0 x10^3/uL (1.8-7.7) Lymphocytes # (Auto) 0.9 x10^3/uL (1.0-4.8) L Monocytes # (Auto) 1.0 x10^3/uL (0.0-1.1) Eosinophils # (Auto) 0.0 x10^3/uL (0.0-0.7) Basophils # (Auto) 0.0 x10^3/uL (0.0-0.2) Sodium Level 141 mmol/L (136-145) Potassium Level 4.7 mmol/L (3.5-5.1) Chloride Level 101 mmol/L (98-107) Carbon Dioxide Level 40 mmol/L (21-32) H Anion Gap 0 (6-14) L Blood Urea Nitrogen 36 mg/dL (7-20) H Creatinine 1.6 mg/dL (0.6-1.0) H Estimated GFR (Cockcroft-Gault) 30.9 BUN/Creatinine Ratio 23 (6-20) H Glucose Level 203 mg/dL (70-99) H Calcium Level 8.6 mg/dL (8.5-10.1) Phosphorus Level 3.1 mg/dL (2.6-4.7) Magnesium Level 1.8 mg/dL (1.8-2.4) Total Bilirubin 0.7 mg/dL (0.2-1.0) Aspartate Amino Transferase (AST) 27 U/L (15-37) Alanine Aminotransferase (ALT) 26 U/L (14-59) Alkaline Phosphatase 130 U/L (46-116) H C-Reactive Protein, Quantitative 21.4 mg/L (0-3.3) H Total Protein 6.6 g/dL (6.4-8.2) Albumin 2.9 g/dL (3.4-5.0) L Albumin/Globulin Ratio 0.8 (1.0-1.7) L Laboratory Tests 05/09/21 17:35 Laboratory Tests 05/09/21 17:35 Vital Signs: Vital Signs Date Time Temp Pulse Resp B/P (MAP) Pulse Ox O2 Delivery O2 Flow Rate FiO2 05/09/21 17:06 98.3 93 22 187/89 (121) 99 Nasal Cannula 3.0 98.3 EKG: EKG: EKG performed at 1718 by ED nursing staff shows atrial fibrillation with occasional PVCs, no discernible P waves appreciated, heart rate 102 bpm, QT 0.482, no acute STEMI, no ACS, no acute ischemia appreciated, EKG interpreted by ED attending physician Dr. Aguilera. Radiology/Procedures: Radiology/Procedures: PATIENT: JAJA ROWAN AACCOUNT: [id number] : 1940 LOCATION: ER AGE: 80 SEX: F EXAM STATUS: REG ER ORD. PHYSICIAN: SHIVANI SNIDER APRN REASON: Cellulitis, rule out deep tissue infectious process PROCEDURE: FOOT BILAT 3V EXAM: XR BILAT FEET 3 VIEWS 05/09/2021 6:00 PM CLINICAL INDICATION: Cellulitis, rule out deep infection. COMPARISON: Bilateral foot radiograph TECHNIQUE: 3 views of the right left foot FINDINGS: Right foot: The bones are diffusely demineralized, limiting the exam. There is no definite osseous destruction. No acute fracture. There is hallux valgus. Mild degenerative joint disease of the great toe MTP joint. There are vascular calcifications and mild diffuse soft tissue swelling. No soft tissue gas. Left foot: Surgical changes of second and fifth toe amputations. The bones are diffusely demineralized, limiting the exam. There is no definite osseous destruction. No acute fracture. Mild degenerative joint disease of the great toe MTP joint. There are vascular calcifications and mild diffuse soft tissue swelling. No soft tissue gas. IMPRESSION: 1. No radiographic evidence of osteomyelitis in either foot. 2. Osteopenia, mildly limiting the exam. 3. Surgical changes of left second fifth toe amputation. Electronically signed by: Barbara Marroquin MD (05/09/2021 7:07 PM) [id number] Course & Med Decision Making: Course & Med Decision Making Pertinent Labs and Imaging studies reviewed. (See chart for details) 80-year-old female, vital signs reviewed, presents emergency department concerning bleeding wound from right lower extremity. Patient reports that she was on her way for her primary care physician appointment with Dr. Corcoran when she decided to come to the emergency department instead. Physical examination concerning for mild cellulitis, related to bleeding will order PT/INR, CBC, CMP, CRP, EKG. Patient denies chest pain, is in no apparent distress and no respiratory distress. Patient does have darkened toes and is missing toes from surgical removal related to her poorly controlled diabetes. Will order bilateral foot x-rays to rule out deep tissue infectious process. Called and discussed patient case and ED work-up with patient's primary care physician Dr. Corcoran, Dr. Corcoran recommended patient be discharged home with strict follow-up in his office tomorrow. Dress diabetic wound on right fry. Discussed Dr. Corcoran's recommendations with patient who is amendable to discharge planning. Reviewed strict return to ER precautions and concerns, patient's diabetic leg wound cleansed and dressed with bacitracin and bandage prior to discharge. The patient's INR is 2.3, discussed with the patient all findings and diagnostic testing as well as the need to follow-up with their primary care provider for further evaluation and treatment or return to the ED if any new or worsening symptoms. Strict return precautions were also discussed at length, the patient voiced understanding and agreement with the discharge planning. The patient was nontoxic in appearance, in no apparent distress, and hemodynamically stable at the time of disposition. Dragon Disclaimer: Dragon Disclaimer: This electronic medical record was generated, in whole or in part, using a voice recognition dictation system. Departure Departure Impression: Primary Impression: Cellulitis and abscess of lower extremity Additional Impression: Diabetic leg ulcer Disposition: HOME / SELF CARE / HOMELESS Condition: GOOD Referrals: ELISABETH CORCORAN MD (PCP) Additional Instructions: You were seen today in the emergency department concerning a bleeding diabetic leg wound, and extensive work-up was done today in the emergency department, you r primary care physician Dr. Corcoran was contacted and your case reviewed, Dr. Corcoran recommended you be discharged home and he wants to see you in his office tomorrow, please call tomorrow for an appointment. Please let Dr. Corcoran know you are PT/INR equals 2.3 today in the emergency department. Your diabetic leg wound was cleansed and dressed with bacitracin ointment and a bandage, x-rays performed of your feet did not show any signs of gangrene or deep tissue infectious process, please return to the emergency department for worsening symptoms or other concerns. Thank you for visiting our Emergency Department. It was a pleasure taking care of you today in the emergency department and we ap preciate you trusting us with your care. If any additional problems come up don't hesitate to return to visit us. Please follow up with your primary care provider so they can plan additional care if needed and know about the problem that you had. If symptoms worsen come back to the Emergency Department. Any concerning symptoms that start such as chest pain, shortness of air, weakness or numbness on one side of the body, running high fevers or any other concerning symptoms return to the ER. EMERGENCY DEPARTMENT GENERAL DISCHARGE INSTRUCTIONS Thank you for coming to [facility] Emergency Department (ED) today and trusting us with you care. We trust that you had a positive experience in our Emergency Department. If you wish to speak to the department management, you may call the Director at [phone]. YOUR FOLLOW UP INSTRUCTIONS ARE FOLLOWS: 1. Do you have a private Doctor? If you do not have a private doctor, please ask for a resource list of physicians or clinics that may be able to assist you with follow up care. 2. The Emergency Physicain has interpreted your x-rays. The X-Ray specialist will also review them. If there is a change in the findings, you will be notified in 48 hours when at all possible. 3. A lab test or culture has been done, your results will be reviewed and you will be notified if you need a change in treatment. ADDITIONAL INSTRUCTIONS AND INFORMATION: 1. Your care today has been supervised by a physician who is specially trained in emergency care. Many problems require more than one evaluation for a complete diagnosis and treatment. We recommend that you schedule your follow up appointment as recommended to ensure complete treatment of you illness or injury. If you are unable to obtain follow up care and continue to have a problem, or if your condition worsens, we recommend that you return to the ED. 2. We are not able to safely determine your condition over the phone nor are we able to give sound medical advice over the phone. For these safety reasons, if you call for medical advice we will ask you to come to the ED for further evaluation. 3. If you have any questions regarding these discharge instructions please call the ED at [phone]. SAFETY INFORMATION: In the interest of safety, wellness, and injury prevention; we encourage you to wear your sealbelt, if you smoke; quite smoking, and we encourage family to use a protective helmet for bicycling and other sporting events that present an increased risk for head injury. IF YOUR SYMPTOMS WORSEN OR NEW SYMPTOMS DEVELOP, OR YOU HAVE CONCERNS ABOUT YOUR CONDITION; OR IF YOUR CONDITION WORSENS WHILE YOU ARE WAITING FOR YOUR FOLLOW UP APPOINTMENT; EITHER CONTACT YOUR PRIMARY CARE DOCTOR, THE PHYSICIAN WHOSE NAME AND NUMBER YOU WERE GIVEN, OR RETURN TO THE ED IMMEDIATELY. SHIVANI SNIDER APRN May 09, 2021 19:18
== END 2021-05-09 19:28 | disposition home or self-care (01) ==
LOC: ER 16:43
DX: E11.622 Type 2 diabetes mellitus with other skin ulcer (principal); L97.911 Non-pressure chronic ulcer of unspecified part of right lower leg limited to breakdown of skin; L03.116 Cellulitis of left lower limb; L03.115 Cellulitis of right lower limb; I48.91 Unspecified atrial fibrillation; J45.909 Unspecified asthma, uncomplicated; E78.00 Pure hypercholesterolemia, unspecified; I12.9 Hypertensive chronic kidney disease with stage 1 through stage 4 chronic kidney disease, or unspecified chronic kidney disease; E11.22 Type 2 diabetes mellitus with diabetic chronic kidney disease; N18.9 Chronic kidney disease, unspecified; Z88.8 Allergy status to other drugs, medicaments and biological substances
CPT/HCPCS: 36415; 80053; 83735; 84100; 85025; 85610; 86140; 87040; 93005; 73630-50; 99285-25